=== PATIENT | male | born 1975 | race Caucasian/White ===

== ENCOUNTER 2017-09-27 11:02 | Inpatient (IN) ==
[2017-09-27 11:25] LABS: Baso # (Auto) 0.1 th/mm3 (0.0-0.2); Baso % (Auto) 0.7 % (0.0-2.0); Eos # (Auto) 0.1 th/mm3 (0.0-0.4); Hematocrit 40.3 % (39.0-51.0); Hemoglobin 13.5 gm/dL (13.0-17.0); Lymph # (Auto) 3.2 th/mm3 (1.0-4.8); Lymph % (Auto) 25.6 % (9.0-44.0); Mean Corpuscular HGB Conc 33.5 % (32.0-36.0); Mean Corpuscular Hemoglobin 30.1 pg (27.0-34.0); Mean Corpuscular Volume 90.1 fL (80.0-100.0); Mean Platelet Volume 9.6 fL (7.0-11.0); Mono # (Auto) 0.6 th/mm3 (0.0-0.9); Mono % (Auto) 4.6 % (0.0-8.0); Neut # (Auto) 8.5 th/mm3 (1.8-7.7); Neut % (Auto) 68.1 % (16.0-70.0); Platelet Count 178 th/mm3 (150-450); Red Blood Count 4.48 mil/mm3 (4.50-5.90); White Blood Count 12.5 th/mm3 (4.0-11.0)
[2017-09-27 11:41] LABS: Activated Partial Thrombo Time 19.8 sec (24.3-30.1); INR 1.1 Ratio; Prothrombin Time 10.7 sec (9.8-11.6)
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
[2017-09-27] MEDS ORDERED: Midazolam Inj 5 MG/ML 1 ML Vial ONE (12:07)
[2017-09-27] MEDS ORDERED: Norepinephrine Inj 4 MG/4 ML Ampul ONE (12:17)
[2017-09-27] MEDS: Midazolam 50 MG/50 ML Inj 50 MG/50 ML BAG IV.CONT PRN ×2 (12:50→17:49)
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
[2017-09-27] MEDS ORDERED: Midazolam 50 MG/50 ML Inj 50 MG/50 ML BAG IV.CONT PRN (13:11)
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
[2017-09-27 13:32] LABS: Hematocrit 26.7 % (39.0-51.0); Hemoglobin 8.9 gm/dL (13.0-17.0)
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
--- NOTE | 2017-09-27 13:45 | P.OP ---
Date of procedure: 09/27/17 Procedure: Right frontal intracranial twist drill hole pressure monitor placement Anesthesia: local Surgeon: Ruben Rahman MD Operation and Findings: Informed consent was obtained from the patient's family. Following administration of the intravenous Versed with the oxygen saturation and hemodynamic monitoring in the intensive care unit, the right frontal region was shaved and the prep with chlor prep and sterilely draped. Using landmarks of 11 cm behind the nasion and 3 cm to the right of the midline, a 1 cm scalp incision was made after infiltrating with 1% lidocaine with epinephrine solution. With a handheld drill a twist drill hole was made in the underlying dura penetrated with a blunt probe. The Higbee bolt was then secured to the skull. The fiberoptic catheter zeroed and passed into the subarachnoid space with an opening pressure of 7 mmHg noted. A sterile dressing was applied. There were no complications and blood loss was less than 5 cc.
[2017-09-27 14:11] LABS: ABG Base Excess -4.2 mmol/L (-2-2); ABG PCO2 36 mmHg (38-42); ABG PO2 208 mmHg (61-120)
[2017-09-27] MEDS: Sod Chloride 0.9% Inj 1,000 ML IV.CONT SCH ×2 (14:41→21:59)
[2017-09-27] MEDS: Norepinephrine Inj 4 MG in Sodium Chlor 0.9% Inj 246 ML IV.SIG PRN (14:41)
[2017-09-27] MEDS: Pantoprazole Inj 40 MG Vial IV.PUSH SCH (14:53)
[2017-09-27] MEDS: Oral Hygiene Kit OROPHARYNG SCH (15:21)
[2017-09-27] MEDS: fentaNYL 10 mcg/mL Premix Drip 2,500 MCG/250 ML BAG IV.SIG PRN (16:04)
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
[2017-09-27 17:36] LABS: Hematocrit 34.3 % (39.0-51.0); Hemoglobin 11.9 gm/dL (13.0-17.0)
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
[2017-09-27] MEDS ORDERED: Albumin Human 5% Inj 500 ML IV.SIG ONE (19:00)
[2017-09-27] MEDS: Chlorhexidine 0.12% Oral Kit 15 ML UDC OROPHARYNG SCH (20:43)
[2017-09-27 21:07] LABS: Hematocrit 28.8 % (39.0-51.0)
[2017-09-27 21:38] LABS: ABG PCO2 31 mmHg (38-42); ABG PO2 170 mmHg (61-120)
[2017-09-27 22:13] LABS: Anion Gap 8 meq/L (5-15); Blood Urea Nitrogen 13 mg/dL (7-18); Calcium 6.5 mg/dL (8.5-10.1); Carbon Dioxide 21.9 meq/L (21.0-32.0); Chloride 118 meq/L (98-107); Glomerular Filtration Rate Greater Than 89 mL/min (>89); Glucose,Random 129 mg/dL (74-106); Potassium 4.2 meq/L (3.5-5.1); Sodium 148 meq/L (136-145)
[2017-09-27 22:34] LABS: Total Protein 4.7 g/dL (6.4-8.2)
[2017-09-27] MEDS: Docusate Sodium 100 MG Capsule PO SCH (23:38)
[2017-09-27] MEDS: Senna/Docusate Sodium 8.6/50 MG Tablet PO SCH (23:38)
[2017-09-28] MEDS: Oral Hygiene Kit OROPHARYNG SCH ×4 (02:21→15:19)
[2017-09-28] MEDS: Norepinephrine Inj 4 MG in Sodium Chlor 0.9% Inj 246 ML IV.SIG PRN (02:22)
[2017-09-28] MEDS: Midazolam 50 MG/50 ML Inj 50 MG/50 ML BAG IV.CONT PRN (02:23)
[2017-09-28] MEDS ORDERED: Potassium Phosphate 500 MG Soluble Tablet PO PRN ×2 (03:52)
[2017-09-28] MEDS ORDERED: Potassium Chlor 20 mEq Premix 20 MEQ/100 ML PIGGYBACK IV.SIG PRN ×2 (03:52)
[2017-09-28] MEDS ORDERED: Magnesium Sulfate Inj 4 GM in Sodium Chlor 0.9% Inj 92 ML IV.SIG PRN (03:52)
[2017-09-28] MEDS ORDERED: Potassium Chlor 40 mEq Premix 40 MEQ/100 ML PIGGYBACK IV.SIG PRN (03:52)
[2017-09-28] MEDS ORDERED: Sodium Phosphate Inj 30 MMOL in Sodium Chlor 0.9% Inj 250 ML IV.SIG PRN (03:52)
[2017-09-28] MEDS ORDERED: Magnesium Sulfate Inj 2 GM in Sodium Chlor 0.9% Inj 96 ML IV.SIG PRN (03:52)
[2017-09-28] MEDS ORDERED: Magnesium Oxide 400 MG Tablet PO PRN (03:52)
[2017-09-28] MEDS ORDERED: Potassium Phosphate Inj 30 MMOL in Sodium Chlor 0.9% Inj 250 ML IV.SIG PRN (03:52)
[2017-09-28] MEDS ORDERED: Chlorhexidine Gluconate 2% 1 Pack (2 Cloths) TOPICAL PRN (04:00)
[2017-09-28 05:57] LABS: Hematocrit 26.3 % (39.0-51.0); Hemoglobin 9.3 gm/dL (13.0-17.0); Mean Corpuscular HGB Conc 35.2 % (32.0-36.0); Mean Corpuscular Hemoglobin 31.1 pg (27.0-34.0); Mean Corpuscular Volume 88.4 fL (80.0-100.0); Platelet Count 80 th/mm3 (150-450); Red Blood Count 2.97 mil/mm3 (4.50-5.90); Red Cell Distribution Width 13.7 % (11.6-17.2); White Blood Count 8.9 th/mm3 (4.0-11.0)
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
[2017-09-28 06:25] LABS: Anion Gap 5 meq/L (5-15); Blood Urea Nitrogen 10 mg/dL (7-18); Calcium 6.5 mg/dL (8.5-10.1); Carbon Dioxide 24.4 meq/L (21.0-32.0); Chloride 118 meq/L (98-107); Glomerular Filtration Rate Greater Than 89 mL/min (>89); Glucose,Random 127 mg/dL (74-106); Sodium 147 meq/L (136-145)
[2017-09-28 06:29] LABS: ABG Base Excess -2.5 mmol/L (-2-2); ABG PCO2 34 mmHg (38-42); ABG PO2 167 mmHg (61-120)
[2017-09-28 06:39] LABS: Total Protein 4.7 g/dL (6.4-8.2)
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
[2017-09-28] MEDS ORDERED: ceFAZolin 2 GM Premix Inj 0 GM/0 ML PIGGYBACK IV.SIG ONE (10:15)
[2017-09-28] MEDS ORDERED: Bupivacaine/Epinephrine Inj 0.25% 50 ML Vial ONE (10:18)
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
--- NOTE | 2017-09-28 10:46 | CT ---
EXAM DATE: 09/28/2017 10:32 AM EDT AGE/SEX: 41 years / Male INDICATIONS: Head injury one day ago. CLINICAL DATA: This is the patient's subsequent encounter. Patient reports that signs and symptoms h ave been present for 2 days and indicates a pain score of Nonresponsive. MEDICAL/SURGICAL HISTORY: Non-responsive. Non-responsive. RADIATION DOSE: 66.34 CTDI (mGy) COMPARISON: [facility], CT HEAD W/O CONTRAST, 09/27/2017. . TECHNIQUE: CT of the head without contrast. Using automated exposure control and adjustment of the mA and/or kV according to patient size, radiation dose was kept as low as reasonably achievable to ob tain optimal diagnostic quality images. DICOM format image data is available electronically for revi ew and comparison. FINDINGS: There are at least 5 small punctate areas of high density hemorrhage along the high frontal and parie lisbet lobes. These measure up to 7 mm in greatest diameter. There is also small amount of subtle appare nt subarachnoid hemorrhage over the more posterior parietal convexities best seen on axial image #26. In addition there are 3 small punctate areas of hemorrhage to along the medial sylvian fissure regio n the larger measures up to approximately 9 mm. There are 2 smaller subtle areas of apparent hemorrha ge along the anterior brainstem on image #14 and one along the medial temporal lobe on image #12. The se measure 2 to 3 mm in size. There is no mass effect or midline shift. The ventricular system is within normal limits. The posteri or fossa and brainstem are otherwise unremarkable. The bone windows demonstrate no evidence of fracture. There are air-fluid levels in the maxillary sin uses. A nasogastric tube and endotracheal tube are present. There is opacification of multiple ethmoi so air cells as well. CONCLUSION: 1. Multiple small punctate areas of intraparenchymal hemorrhage. 2. Subtle areas of apparent subarachnoid hemorrhage over the posterior parietal convexities. Electronically signed by: Dick Turner MD 09/28/2017 10:44 AM EDT
[2017-09-28] MEDS: Propofol 1000 mg/100 ml Inj 1,000 MG/100 ML BOTTLE IV.CONT PRN ×2 (11:01→17:02)
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
[2017-09-28] MEDS: Sod Chloride 0.9% Inj 1,000 ML IV.CONT SCH ×2 (11:43→17:25)
[2017-09-28] MEDS: Chlorhexidine 0.12% Oral Kit 15 ML UDC OROPHARYNG SCH ×2 (11:43→19:54)
[2017-09-28] MEDS: Pantoprazole Inj 40 MG Vial IV.PUSH SCH (11:44)
[2017-09-28] MEDS: Docusate Sodium 100 MG Capsule PO SCH ×2 (11:44→20:04)
[2017-09-28] MEDS: Senna/Docusate Sodium 8.6/50 MG Tablet PO SCH ×2 (11:44→20:04)
[2017-09-28] MEDS: fentaNYL 10 mcg/mL Premix Drip 2,500 MCG/250 ML BAG IV.SIG PRN (15:20)
[2017-09-28] MEDS: Chlorhexidine Gluconate 2% 1 Pack (2 Cloths) TOPICAL SCH (19:50)
--- NOTE | 2017-09-29 00:18 | ECG ---
Date Performed: 09/27/2017 Time Performed: 20:40:50 PTAGE: 41 years EKG: Sinus rhythm . Inferior T wave changes are nonspecific Borderline ECG NO PREVIOUS TRACING DOCTOR: Sushil Hilario Interpretating Date/Time 09/29/2017 00:17:02
[2017-09-29] MEDS: Propofol 1000 mg/100 ml Inj 1,000 MG/100 ML BOTTLE IV.CONT PRN ×2 (01:08→13:42)
[2017-09-29] MEDS: Oral Hygiene Kit OROPHARYNG SCH ×3 (03:33→19:57)
[2017-09-29] MEDS: Sod Chloride 0.9% Inj 1,000 ML IV.CONT SCH ×2 (03:34→19:57)
[2017-09-29 04:09] LABS: Baso # (Auto) 0.1 th/mm3 (0.0-0.2); Baso % (Auto) 0.6 % (0.0-2.0); Eos # (Auto) 0.2 th/mm3 (0.0-0.4); Eos % (Auto) 1.8 % (0.0-4.0); Hematocrit 21.8 % (39.0-51.0); Hemoglobin 7.6 gm/dL (13.0-17.0); Lymph # (Auto) 1.1 th/mm3 (1.0-4.8); Mean Corpuscular HGB Conc 34.7 % (32.0-36.0); Mean Corpuscular Hemoglobin 30.7 pg (27.0-34.0); Mean Corpuscular Volume 88.3 fL (80.0-100.0); Mean Platelet Volume 8.9 fL (7.0-11.0); Mono # (Auto) 0.8 th/mm3 (0.0-0.9); Mono % (Auto) 9.8 % (0.0-8.0); Neut # (Auto) 6.4 th/mm3 (1.8-7.7); Neut % (Auto) 74.8 % (16.0-70.0); Platelet Count 110 th/mm3 (150-450); Red Blood Count 2.47 mil/mm3 (4.50-5.90); Red Cell Distribution Width 13.7 % (11.6-17.2); White Blood Count 8.5 th/mm3 (4.0-11.0)
[2017-09-29 04:29] LABS: Anion Gap 5 meq/L (5-15); Blood Urea Nitrogen 9 mg/dL (7-18); Calcium 6.7 mg/dL (8.5-10.1); Carbon Dioxide 26.5 meq/L (21.0-32.0); Chloride 115 meq/L (98-107); Glomerular Filtration Rate Greater Than 89 mL/min (>89); Glucose,Random 107 mg/dL (74-106); Potassium 3.6 meq/L (3.5-5.1); Sodium 146 meq/L (136-145)
[2017-09-29 04:44] LABS: Total Protein 4.8 g/dL (6.4-8.2)
[2017-09-29 05:40] LABS: ABG Base Excess 0.4 mmol/L (-2-2); ABG PCO2 39 mmHg (38-42); ABG PO2 139 mmHg (61-120)
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
[2017-09-29] MEDS ORDERED: Sodium Chlor 0.9% Inj 250 ML IV.SIG SCH ×2 (07:30→10:00)
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
[2017-09-29] MEDS: Docusate Sodium 100 MG Capsule PO SCH ×2 (09:06→20:15)
[2017-09-29] MEDS: Chlorhexidine 0.12% Oral Kit 15 ML UDC OROPHARYNG SCH ×2 (09:06→19:57)
[2017-09-29] MEDS: Pantoprazole Inj 40 MG Vial IV.PUSH SCH (09:07)
[2017-09-29] MEDS: Senna/Docusate Sodium 8.6/50 MG Tablet PO SCH ×2 (09:07→20:14)
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
[2017-09-29] MEDS: Mupirocin 2% Nasal Oint Topical Syringe EACH NARE SCH ×2 (11:46→20:14)
[2017-09-29] MEDS ORDERED: Phenylephrine/NS 1000 MCG/10ML Syringe IV.PUSH ONE (12:00)
[2017-09-29] MEDS: fentaNYL 10 mcg/mL Premix Drip 2,500 MCG/250 ML BAG IV.SIG PRN (13:41)
[2017-09-29] MEDS ORDERED: ceFAZolin 2 GM Premix Inj 2 GM/50 ML PIGGYBACK IV.SIG ONE (18:28)
[2017-09-29] MEDS ORDERED: Post-op Orders (for Pharmacy) OTHER STA (18:44)
--- NOTE | 2017-09-29 18:51 | P.OP ---
- Preoperative Diagnosis (1) Closed intertrochanteric fracture of left femur (2) Fracture of femoral shaft, left, closed Date of procedure: 09/29/17 Procedure: Open reduction internal fixation of left femoral shaft fracture, intramedullary nail fixation of left intertrochanteric hip fracture Anesthesia: GETA Surgeon: Thomas Duque MD Keno Manager: Jose Cameron PA-C The surgical procedure was assisted by my physician transportation assistant. My P.A. presence was necessary throughout this case for the manipulation and positioning of the surgical extremity. My P.A. was assisting me throughout the duration of this procedure. The skill set of a physician transportation assistant was medically necessary to complete this procedure. During the surgical case the cardiovascular surgical tech was working at the back table and the physician transportation assistant was directly assisting me. Operation and Findings: Implants used: Biomet [11]mm x [420]mm troch nail, Synthes 1.7 mm cable Plan of activity: 50% weightbearing Patient was seen and evaluated preoperatively. He has been intubated and sedated in the intensive care unit secondary to multiple other injuries. He was found to have a displaced femoral shaft fracture and intertrochanteric hip fracture. Informed consent was obtained from his family. Operative site was marked. Patient was brought to the operating room and placed on fracture table. IV sedation was administered by anesthesiologist. Timeout procedure was performed. Hip and leg were prepped with alcohol followed by DuraPrep and draped in the usual sterile fashion. IV antibiotics were given prior to incision. The head of bed was elevated at all times to help keep his intracranial pressures low. Procedure began with reduction of femoral shaft fracture. Traction was applied. There was significant displacement of the femoral shaft fracture. A 4 inch incision was made over the lateral aspect of the femoral shaft fracture. Subcu tissue was dissected with Bovie. Iliotibial band was split in line with fibers. Vastus lateralis was elevated anteriorly. The femoral shaft fracture was now manipulated. Fracture tenaculums were used to aid in reduction. Fracture keyed in excellent alignment. A Synthes 1.7 mm cable was now passed around the femoral shaft fracture. Cable was tensioned appropriately. The cable was then clamped and cut. Next attention was turned to the intertrochanteric fracture. The leg was manipulated to achieve reduction. Excellent reduction was achieved. Fluoroscopy was used to confirm reduction. A three inch incision was made proximal to the trochanter. Subcutaneous tissue was dissected bluntly. Guidepin was placed at the tip of the trochanter and advanced into the femoral canal. Fluoroscopy confirmed appropriate guidepin placement. A opening reamer was placed over the guidepin. A long ball tipped guide pin was now placed down the femoral canal into the center of the distal femur. The nail length was now measured. Fluoroscopy confirmed appropriate guidepin placement. Flexible reamers were now passed over the guidepin to ream the intramedullary canal. The nail was attached to the insertion handle. Nail was now placed over the guidepin into the femoral canal. Fluoroscopy confirmed appropriate nail placement. A second incision was made over the lateral thigh. Cannulas were placed through the insertion handle down to the femur. Guidepin was now placed through the femoral nail into the center of the femoral head. Fluoroscopy confirmed appropriate guidepin placement. Screw length was measured. Cannulated drill was placed over the guidepin. Appropriate length lag screw was now placed. Traction was released and compression was applied. The set screw was now tightened in dynamic mode. Next, using perfect tunica-biloxi technique two distal interlocking screws were placed. Screw holes were predrilled and screw lengths were measured. Final fluoroscopy revealed well aligned fracture with well-placed hardware. Incision was closed with 3-0 Vicryl and pepe. Sterile dressings were applied. Patient was transferred to intensive care.
[2017-09-29] MEDS ORDERED: fentaNYL Citrate Inj 100 MCG/2 ML Ampul ONE (19:27)
[2017-09-29] MEDS: Chlorhexidine Gluconate 2% 1 Pack (2 Cloths) TOPICAL SCH (19:56)
[2017-09-29] MEDS: Morphine Inj 4 MG/ML Vial IV.PUSH PRN ×2 (20:14→23:55)
--- NOTE | 2017-09-29 20:15 | XR ---
EXAM DATE: 09/29/2017 8:01 PM EDT AGE/SEX: 41 years / Male INDICATIONS: Left femur open reduction internal fixation. CLINICAL DATA: This is the patient's initial encounter. Patient reports that signs and symptoms have been present for 1 day and indicates a pain score of Nonresponsive. MEDICAL/SURGICAL HISTORY: Non-responsive. Non-responsive. [place]PAR[place]: [facility] [place] 1[place], 09/27/[place]. [facility] [place]BD[place] & PELVIS W CONTRAST, 09/27/2017. . FINDINGS: There is a long agustín seen through the femoral shaft. There is a helical blade extending through the pr oximal aspect of the intramedullary agustín into the femoral neck and head. The hardware is well placed. There is fracturing of the proximal femoral shaft. CONCLUSION: Successful ORIF of a femoral shaft fracture. Electronically signed by: Giuliano Patel MD 09/29/2017 8:14 PM EDT
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
[2017-09-30] MEDS: Oral Hygiene Kit OROPHARYNG SCH ×5 (00:35→23:15)
[2017-09-30] MEDS: Propofol 1000 mg/100 ml Inj 1,000 MG/100 ML BOTTLE IV.CONT PRN ×6 (01:33→20:51)
[2017-09-30] MEDS: ceFAZolin Inj 2,000 MG in Sodium Chlor 0.9% Inj 80 ML IV.SIG SCH ×3 (02:02→19:11)
[2017-09-30] MEDS: fentaNYL 10 mcg/mL Premix Drip 2,500 MCG/250 ML BAG IV.SIG PRN ×2 (03:07→12:47)
[2017-09-30] MEDS: Chlorhexidine Gluconate 2% 1 Pack (2 Cloths) TOPICAL SCH (03:08)
[2017-09-30 05:49] LABS: ABG Base Excess 1.5 mmol/L (-2-2); ABG PCO2 40 mmHg (38-42); ABG PO2 135 mmHg (61-120)
[2017-09-30] MEDS: Sod Chloride 0.9% Inj 1,000 ML IV.CONT SCH (06:16)
[2017-09-30 06:28] LABS: Baso % (Auto) 0.6 % (0.0-2.0); Eos # (Auto) 0.2 th/mm3 (0.0-0.4); Lymph # (Auto) 0.8 th/mm3 (1.0-4.8); Lymph % (Auto) 16.9 % (9.0-44.0); Mean Corpuscular HGB Conc 35.3 % (32.0-36.0); Mean Corpuscular Hemoglobin 30.8 pg (27.0-34.0); Mean Corpuscular Volume 87.4 fL (80.0-100.0); Mean Platelet Volume 8.5 fL (7.0-11.0); Mono # (Auto) 0.5 th/mm3 (0.0-0.9); Mono % (Auto) 10.2 % (0.0-8.0); Neut # (Auto) 3.2 th/mm3 (1.8-7.7); Neut % (Auto) 68.3 % (16.0-70.0); Platelet Count 106 th/mm3 (150-450); Red Blood Count 2.07 mil/mm3 (4.50-5.90); Red Cell Distribution Width 13.6 % (11.6-17.2); White Blood Count 4.7 th/mm3 (4.0-11.0)
[2017-09-30 06:34] LABS: Hematocrit 18.1 % (39.0-51.0); Hemoglobin 6.4 gm/dL (13.0-17.0)
[2017-09-30 07:05] LABS: Anion Gap 7 meq/L (5-15); Blood Urea Nitrogen 7 mg/dL (7-18); Calcium 6.7 mg/dL (8.5-10.1); Carbon Dioxide 25.6 meq/L (21.0-32.0); Chloride 114 meq/L (98-107); Glomerular Filtration Rate Greater Than 89 mL/min (>89); Glucose,Random 107 mg/dL (74-106); Potassium 3.3 meq/L (3.5-5.1); Sodium 147 meq/L (136-145)
--- NOTE | 2017-09-30 07:16 | P.PNOP ---
Subjective Interval history: Patient is stable and sedated Physical Exam Vital signs: Vital Signs 09/29/17 08:00 09/29/17 08:28 09/29/17 08:41 Temperature 100.5 F H 100.5 F H Pulse Rate 88 84 Respiratory Rate 14 14 14 Blood Pressure 154/61 H 156/49 H Pulse Oximetry 100 100 100 09/29/17 09:00 09/29/17 11:22 09/29/17 12:00 Temperature 100.8 F H Pulse Rate 85 79 Respiratory Rate 14 14 Blood Pressure 145/51 H Pulse Oximetry 100 100 09/29/17 16:00 09/29/17 16:02 09/29/17 17:26 Temperature 99.3 F Pulse Rate 85 Respiratory Rate 14 14 Blood Pressure 132/61 Pulse Oximetry 100 100 100 09/29/17 20:00 09/29/17 20:30 09/29/17 23:33 Temperature 97.7 F Pulse Rate 72 Respiratory Rate 14 14 14 Blood Pressure 176/74 H Pulse Oximetry 100 100 95 09/30/17 00:00 09/30/17 03:45 09/30/17 04:00 Temperature 99 F 100.8 F H Pulse Rate 97 H 88 Respiratory Rate 14 14 14 Blood Pressure 161/55 H 148/50 H Pulse Oximetry 100 100 100 Intake & Output 09/29/17 09/30/17 09/30/17 18:59 06:59 18:59 Intake Total 2210 / 2210 1445 / 1445 Output Total 800 / 800 Balance 1410 / 1410 1445 / 1445 Intake: IV 1610 / 1610 1445 / 1445 Diprivan 1000 mg/100 ml Inj 1, 100 / 100 195 / 195 000 mg In 100 ml @ 5 MCG/KG/MIN 2.49 mls/hr IV.CONT TITRATE PRN Rx#:[id number] NS Inj 1,000 ML @ 100 mls/hr IV 1000 / 1000 1000 / 1000 .CONT .Q10H [facility] Rx#:[id number] NS Inj 250 ML @ 15 mls/hr IV. 0 / 0 SIG ONCE [facility] Rx#:[id number] Ancef 2 GM Premix Inj 2 gm In 50 / 50 50 ml @ 100 mls/hr IV.SIG ONCE ONE Rx#:[id number] fentaNYL 10 mcg/mL Premix Drip 250 / 250 250 / 250 2,500 mcg In 250 ml @ 50 MCG/HR 5 mls/hr IV.SIG TITRATE PRN Rx #:[id number] Keppra Inj 500 MG In NS Inj 100 210 / 210 ML @ 420 mls/hr IV.SIG Q12H [facility] Rx#:[id number] Anesthesia Amount 600 / 600 Intake (Blood Product) Amt 0 / 0 Plt Pheresis B Leukoreduced 0 / 0 Unit [id number] Rbc As-3 Leukoreduced Unit 0 / 0 [id number] Output: Estimated Blood Loss 150 / 150 Urine Amount (Catheter) 650 / 650 Indwelling Temp Sensing 650 / 650 Catheter Narrative: Left lower extremity. Dressings intact with mild drainage. Moderate swelling over thigh. Distally intact distal pulses and good capillary refills Bilateral upper extremities are in restraints. No laxity in elbow wrist or fingers. Good capillary refills in bilateral upper extremities - Urinary Catheter Management Indwelling Urethral Catheter Cath placed during this visit: yes Reason for continuing: Hourly intake/output Insertion date: 09/27/17 Insertion time: 12:10 Indwelling Temp Sensing Catheter Cath placed during this visit: yes Reason for continuing: Hourly intake/output Insertion date: 09/27/17 Insertion time: 12:10 Results - Labs CBC & Chem 7: 09/30/17 06:05 09/30/17 06:05 Laboratory Results - last 24 hr 09/27/17 09/30/17 09/30/17 11:05 05:41 06:05 WBC 4.7 RBC 2.07 L Hgb 6.4 L* Hct 18.1 L* MCV 87.4 MCH 30.8 MCHC 35.3 RDW 13.6 Plt Count 106 L MPV 8.5 Prelim Diff (Auto) Slide review pending Neut % (Auto) 68.3 Lymph % (Auto) 16.9 Floyd % (Auto) 10.2 H Eos % (Auto) 4.0 Baso % (Auto) 0.6 Neut # (Auto) 3.2 Lymph # (Auto) 0.8 L Floyd # (Auto) 0.5 Eos # (Auto) 0.2 Baso # (Auto) 0.0 WBC Differential . Diff Scan Auto diff confirmed Differential Comment . Puncture Site Joanna Patient Temperature 98.6 O2 Saturation 97 ABG pH 7.42 ABG pCO2 40 ABG pO2 135 H ABG HCO3 26 ABG O2 Content 8.9 L ABG Base Excess 1.5 ABG Methemoglobin 1.2 Hemoglobin 6.3 L* Carboxyhemoglobin 1.4 O2 Delivery Device Ventilator Vent Setting See comment Inspired O2 40 Critical Value Yes Sodium Potassium Chloride Carbon Dioxide Anion Gap BUN Creatinine Estimated GFR Random Glucose Calcium MTS Gel Crossmatch See Detail 09/30/17 06:05 WBC RBC Hgb Hct MCV MCH MCHC RDW Plt Count MPV Prelim Diff (Auto) Neut % (Auto) Lymph % (Auto) Floyd % (Auto) Eos % (Auto) Baso % (Auto) Neut # (Auto) Lymph # (Auto) Floyd # (Auto) Eos # (Auto) Baso # (Auto) WBC Differential Diff Scan Differential Comment Puncture Site Patient Temperature O2 Saturation ABG pH ABG pCO2 ABG pO2 ABG HCO3 ABG O2 Content ABG Base Excess ABG Methemoglobin Hemoglobin Carboxyhemoglobin O2 Delivery Device Vent Setting Inspired O2 Critical Value Sodium 147 H Potassium 3.3 L Chloride 114 H Carbon Dioxide 25.6 Anion Gap 7 BUN 7 Creatinine 0.52 L Estimated GFR Greater than 89 Random Glucose 107 H Calcium 6.7 L* MTS Gel Crossmatch - Imaging Impressions Femur X-Ray 09/29/17 00:00 CONCLUSION: Successful ORIF of a femoral shaft fracture. Assessment and Plan - Assessment and Plan Left femur fracture IM nail POD 1 Physical therapy for 50% weightbearing left lower extremity Daily dressing changes beginning POD 2 Ice to decrease swelling Bilateral scapular fractures Weightbearing as tolerated
[2017-09-30 07:21] LABS: Total Protein 4.3 g/dL (6.4-8.2)
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
[2017-09-30] MEDS: Docusate Sodium 100 MG Capsule PO SCH ×2 (11:42→20:21)
[2017-09-30] MEDS: Chlorhexidine 0.12% Oral Kit 15 ML UDC OROPHARYNG SCH ×2 (11:42→20:21)
[2017-09-30] MEDS: Mupirocin 2% Nasal Oint Topical Syringe EACH NARE SCH ×2 (11:42→20:21)
[2017-09-30] MEDS: Senna/Docusate Sodium 8.6/50 MG Tablet PO SCH ×2 (11:43→20:21)
[2017-09-30] MEDS: Pantoprazole Inj 40 MG Vial IV.PUSH SCH (11:43)
[2017-09-30] MEDS: Calcium/Vitamin D 250/125 MG Tablet PO SCH ×3 (12:46→19:11)
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
[2017-09-30 19:49] LABS: Hemoglobin 8.3 gm/dL (13.0-17.0)
[2017-09-30] MEDS: Morphine Inj 4 MG/ML Vial IV.PUSH PRN (23:14)
[2017-10-01] MEDS: Propofol 1000 mg/100 ml Inj 1,000 MG/100 ML BOTTLE IV.CONT PRN ×2 (00:37→06:06)
[2017-10-01] MEDS: Chlorhexidine Gluconate 2% 1 Pack (2 Cloths) TOPICAL SCH (04:30)
[2017-10-01] MEDS: Oral Hygiene Kit OROPHARYNG SCH ×3 (04:31→15:50)
--- NOTE | 2017-10-01 05:10 | XR ---
EXAM DATE: 10/01/2017 4:33 AM EDT AGE/SEX: 41 years / Male INDICATIONS: Shortness of breath CLINICAL DATA: This is the patient's subsequent encounter. Patient reports that signs and symptoms h ave been present for 4 - 6 days and indicates a pain score of Nonresponsive. MEDICAL/SURGICAL HISTORY: Non-responsive. Non-responsive. COMPARISON: C, CHEST 1V SINGLE AP, 09/28/2017. . FINDINGS: A single AP view of the chest demonstrates developing bibasilar airspace consolidation with associate d effusions. Endotracheal, nasogastric tube and left subclavian central venous catheters are unchange d in position. Heart size is normal. Posterior lateral rib fracture in the right lower chest. Left-si ded thoracostomy tube is been backed out slightly but there is no pneumothorax. CONCLUSION: 1. Developing bibasilar areas of consolidation with associated effusions. 2. Left thoracostomy tube is been backed out slightly but there is no pneumothorax. Life-support tub es are otherwise stable. 3. Right posterior lateral rib fracture in the lower chest. Electronically signed by: Luis Antonio Neff MD 10/01/2017 5:08 AM EDT
[2017-10-01 05:43] LABS: ABG Base Excess 3.3 mmol/L (-2-2); ABG PCO2 43 mmHg (38-42); ABG PO2 87 mmHg (61-120)
[2017-10-01] MEDS: fentaNYL 10 mcg/mL Premix Drip 2,500 MCG/250 ML BAG IV.SIG PRN ×2 (05:49→21:38)
[2017-10-01 06:10] LABS: Baso % (Auto) 0.5 % (0.0-2.0); Eos # (Auto) 0.3 th/mm3 (0.0-0.4); Hematocrit 23.1 % (39.0-51.0); Lymph # (Auto) 0.8 th/mm3 (1.0-4.8); Lymph % (Auto) 10.1 % (9.0-44.0); Mean Corpuscular HGB Conc 34.8 % (32.0-36.0); Mean Corpuscular Hemoglobin 28.3 pg (27.0-34.0); Mean Corpuscular Volume 81.3 fL (80.0-100.0); Mean Platelet Volume 7.9 fL (7.0-11.0); Mono # (Auto) 0.8 th/mm3 (0.0-0.9); Mono % (Auto) 9.6 % (0.0-8.0); Neut # (Auto) 6.3 th/mm3 (1.8-7.7); Neut % (Auto) 75.8 % (16.0-70.0); Platelet Count 142 th/mm3 (150-450); Red Blood Count 2.84 mil/mm3 (4.50-5.90); Red Cell Distribution Width 19.4 % (11.6-17.2); White Blood Count 8.3 th/mm3 (4.0-11.0)
[2017-10-01 07:02] LABS: Anion Gap 6 meq/L (5-15); Blood Urea Nitrogen 6 mg/dL (7-18); Calcium 6.8 mg/dL (8.5-10.1); Carbon Dioxide 29.2 meq/L (21.0-32.0); Chloride 111 meq/L (98-107); Glomerular Filtration Rate Greater Than 89 mL/min (>89); Glucose,Random 123 mg/dL (74-106); Potassium 3.4 meq/L (3.5-5.1); Sodium 146 meq/L (136-145)
[2017-10-01 07:15] LABS: Total Protein 4.7 g/dL (6.4-8.2)
--- NOTE | 2017-10-01 07:38 | P.PNOP ---
Subjective Interval history: POD 2 s/p IMN left femur s/p Bilateral scap fxs intubated/sedated. no changes Physical Exam Vital signs: Vital Signs 09/30/17 08:00 09/30/17 09:00 09/30/17 09:25 Temperature 100.9 F H Pulse Rate 93 H 88 Respiratory Rate 14 14 Blood Pressure 130/49 L Pulse Oximetry 94 L 98 09/30/17 11:29 09/30/17 12:00 09/30/17 12:20 Temperature 100.8 F H 100.8 F H Pulse Rate 87 87 Respiratory Rate 14 14 14 Blood Pressure 121/40 L 140/87 Pulse Oximetry 100 100 100 09/30/17 15:47 09/30/17 15:48 09/30/17 16:00 Temperature 100.2 F H Pulse Rate 75 79 Respiratory Rate 14 14 14 Blood Pressure 138/48 L Pulse Oximetry 100 99 09/30/17 20:00 09/30/17 20:04 09/30/17 23:41 Temperature 100 F H Pulse Rate 78 Respiratory Rate 14 14 14 Blood Pressure 146/42 H Pulse Oximetry 99 99 97 10/01/17 00:00 10/01/17 03:48 10/01/17 04:00 Temperature 100.2 F H 100.8 F H Pulse Rate 79 86 Respiratory Rate 14 20 14 Blood Pressure 135/41 L 152/50 H Pulse Oximetry 99 99 98 Intake & Output 09/30/17 10/01/17 10/01/17 18:59 06:59 18:59 Intake Total 1335 / 1335 832 / 832 Output Total 590 / 590 745 / 745 Balance 745 / 745 87 / 87 Weight 92.9 kg Intake: IV 715 / 715 550 / 550 Diprivan 1000 mg/100 ml Inj 1, 260 / 260 300 / 300 000 mg In 100 ml @ 5 MCG/KG/MIN 2.49 mls/hr IV.CONT TITRATE PRN Rx#:[id number] Ancef Inj 2,000 MG In NS Inj 80 100 / 100 ML @ 200 mls/hr IV.SIG Q8H SRIDEVI Rx#:[id number] fentaNYL 10 mcg/mL Premix Drip 250 / 250 250 / 250 2,500 mcg In 250 ml @ 50 MCG/HR 5 mls/hr IV.SIG TITRATE PRN Rx #:[id number] Keppra Inj 500 MG In NS Inj 100 105 / 105 ML @ 420 mls/hr IV.SIG Q12H SRIDVEI Rx#:[id number] Tube Feeding 0 / 0 282 / 282 Tube Irrigant 120 / 120 Other 500 / 500 Rbc As-3 Leukoreduced Unit 250 / 250 [id number] Rbc As-3 Leukoreduced Unit 250 / 250 [id number] Intake (Blood Product) Amt 0 / 0 Rbc As-3 Leukoreduced Unit 0 / 0 [id number] Rbc As-3 Leukoreduced Unit 0 / 0 [id number] Output: Stool 0 / 0 Urine Amount (Catheter) 550 / 550 675 / 675 Indwelling Temp Sensing 550 / 550 675 / 675 Catheter Chest Tube Drainage 40 / 40 70 / 70 Left Mid-Axillary Chest 40 / 40 70 / 70 Narrative: Left lower extremity. Dressings intact with mild drainage. Moderate swelling over thigh. Distally intact distal pulses and good capillary refills Bilateral upper extremities are in restraints. No laxity in elbow wrist or fingers. Good capillary refills in bilateral upper extremities - Urinary Catheter Management Indwelling Urethral Catheter Cath placed during this visit: yes Reason for continuing: Hourly intake/output Insertion date: 09/27/17 Insertion time: 12:10 Indwelling Temp Sensing Catheter Cath placed during this visit: yes Reason for continuing: Hourly intake/output Insertion date: 09/27/17 Insertion time: 12:10 Results - Labs CBC & Chem 7: 10/01/17 06:00 10/01/17 06:00 Laboratory Results - last 24 hr 09/27/17 09/29/17 09/30/17 11:05 05:47 08:38 WBC RBC Hgb Hct MCV MCH MCHC RDW Plt Count MPV Neut % (Auto) Lymph % (Auto) [place] % (Auto) Eos % (Auto) Baso % (Auto) Neut # (Auto) Lymph # (Auto) [place] # (Auto) Eos # (Auto) Baso # (Auto) WBC Differential Differential Comment Puncture Site Patient Temperature O2 Saturation ABG pH ABG pCO2 ABG pO2 ABG HCO3 ABG O2 Content ABG Base Excess ABG Methemoglobin Hemoglobin Carboxyhemoglobin O2 Delivery Device Vent Setting Inspired O2 Critical Value Sodium Potassium Chloride Carbon Dioxide Anion Gap BUN Creatinine Estimated GFR Random Glucose Calcium Prot Corrected Calcium Total Protein Blood Type A Positive Antibody Screen Negative MTS Gel Crossmatch See Detail See Detail See Detail Bld Prod Order Comment Cancelled 09/30/17 10/01/17 10/01/17 19:08 05:33 06:00 WBC 8.3 D RBC 2.84 L Hgb 8.3 L 8.0 L Hct 24.0 L 23.1 L MCV 81.3 D MCH 28.3 MCHC 34.8 RDW 19.4 H D Plt Count 142 L D MPV 7.9 Neut % (Auto) 75.8 H Lymph % (Auto) 10.1 [place] % (Auto) 9.6 H Eos % (Auto) 4.0 Baso % (Auto) 0.5 Neut # (Auto) 6.3 Lymph # (Auto) 0.8 L [place] # (Auto) 0.8 Eos # (Auto) 0.3 Baso # (Auto) 0.0 WBC Differential . Differential Comment Auto diff final Puncture Site [place] Patient Temperature 98.6 O2 Saturation 95 ABG pH 7.43 H ABG pCO2 43 H ABG pO2 87 ABG HCO3 27 H ABG O2 Content 10.8 L ABG Base Excess 3.3 H ABG Methemoglobin 1.2 Hemoglobin 8.0 L Carboxyhemoglobin 1.8 O2 Delivery Device Ventilator Vent Setting See comment Inspired O2 40 Critical Value No Sodium Potassium Chloride Carbon Dioxide Anion Gap BUN Creatinine Estimated GFR Random Glucose Calcium Prot Corrected Calcium Total Protein Blood Type Antibody Screen MTS Gel Crossmatch Bld Prod Order Comment 10/01/17 06:00 WBC RBC Hgb Hct MCV MCH MCHC RDW Plt Count MPV Neut % (Auto) Lymph % (Auto) [place] % (Auto) Eos % (Auto) Baso % (Auto) Neut # (Auto) Lymph # (Auto) [place] # (Auto) Eos # (Auto) Baso # (Auto) WBC Differential Differential Comment Puncture Site Patient Temperature O2 Saturation ABG pH ABG pCO2 ABG pO2 ABG HCO3 ABG O2 Content ABG Base Excess ABG Methemoglobin Hemoglobin Carboxyhemoglobin O2 Delivery Device Vent Setting Inspired O2 Critical Value Sodium 146 H Potassium 3.4 L Chloride 111 H Carbon Dioxide 29.2 Anion Gap 6 BUN 6 L Creatinine 0.51 L Estimated GFR Greater than 89 Random Glucose 123 H Calcium 6.8 L* Prot Corrected Calcium 8.1 L Total Protein 4.7 L Blood Type Antibody Screen MTS Gel Crossmatch Bld Prod Order Comment - Imaging Impressions Chest X-Ray 10/01/17 00:00 CONCLUSION: Assessment and Plan - Assessment and Plan Left femur fracture IM nail POD 2 Physical therapy for 50% weightbearing left lower extremity Daily dressing changes beginning POD 2 Ice to decrease swelling ortho surgeries complete Bilateral scapular fractures Weightbearing as tolerated
[2017-10-01] MEDS: Chlorhexidine 0.12% Oral Kit 15 ML UDC OROPHARYNG SCH ×2 (08:02→20:38)
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
[2017-10-01] MEDS: Mupirocin 2% Nasal Oint Topical Syringe EACH NARE SCH ×2 (08:26→20:37)
[2017-10-01] MEDS: Senna/Docusate Sodium 8.6/50 MG Tablet PO SCH ×2 (08:27→20:37)
[2017-10-01] MEDS: Calcium/Vitamin D 250/125 MG Tablet PO SCH ×3 (08:27→17:56)
[2017-10-01] MEDS: Pantoprazole Inj 40 MG Vial IV.PUSH SCH (08:27)
[2017-10-01] MEDS: Docusate Sodium 100 MG Capsule PO SCH (08:28)
[2017-10-01] MEDS: Potassium Chloride 25 MEQ Effervescent Tablet PO PRN (08:28)
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
[2017-10-01] MEDS: Enoxaparin Inj 40 MG/0.4 ML Syringe SQ SCH (11:11)
[2017-10-01] MEDS: Hypromellose 0.3% Opth Gel 10 GM Bottle EACH EYE SCH ×2 (13:51→18:17)
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
[2017-10-01] MEDS: Docusate Sodium Liq 100 MG/10 ML UDC NG/OG SCH (20:37)
[2017-10-02] MEDS: Oral Hygiene Kit OROPHARYNG SCH ×5 (00:27→23:27)
[2017-10-02] MEDS: Hypromellose 0.3% Opth Gel 10 GM Bottle EACH EYE SCH ×4 (00:27→19:08)
[2017-10-02] MEDS: Chlorhexidine Gluconate 2% 1 Pack (2 Cloths) TOPICAL SCH (03:50)
--- NOTE | 2017-10-02 04:13 | XR ---
EXAM DATE: 10/02/2017 4:08 AM EDT AGE/SEX: 41 years / Male INDICATIONS: Pneumothorax. CLINICAL DATA: This is the patient's subsequent encounter. Patient reports that signs and symptoms h ave been present for 4 - 6 days and indicates a pain score of Nonresponsive. MEDICAL/SURGICAL HISTORY: Non-responsive. Non-responsive. COMPARISON: 10/01/2017. FINDINGS: Stable ETT, NGT and left subclavian central line. Interval removal of left-sided chest tube without s ignificant pneumothorax. Persistent bilateral lower lobe airspace disease and small pleural effusions . Cardiomediastinal contours are within normal limits. Remainder of the exam is unchanged. CONCLUSION: 1. Interval removal of left-sided chest tube without significant pneumothorax. 2. Stable bilateral lower lung zone airspace disease and small pleural effusions. Electronically signed by: Chalino Tucker MD 10/02/2017 4:11 AM EDT
[2017-10-02] MEDS ORDERED: Metoprolol Inj 5 MG/5 ML Vial ONE (04:14)
[2017-10-02] MEDS: Metoprolol Inj 5 MG/5 ML Vial IV.PUSH SCH ×4 (04:20→22:19)
[2017-10-02 05:39] LABS: Baso % (Auto) 0.3 % (0.0-2.0); Eos # (Auto) 0.3 th/mm3 (0.0-0.4); Eos % (Auto) 2.9 % (0.0-4.0); Hemoglobin 7.6 gm/dL (13.0-17.0); Lymph # (Auto) 0.7 th/mm3 (1.0-4.8); Lymph % (Auto) 8.3 % (9.0-44.0); Mean Corpuscular HGB Conc 34.7 % (32.0-36.0); Mean Corpuscular Hemoglobin 28.9 pg (27.0-34.0); Mean Corpuscular Volume 83.1 fL (80.0-100.0); Mean Platelet Volume 7.9 fL (7.0-11.0); Mono # (Auto) 0.9 th/mm3 (0.0-0.9); Mono % (Auto) 9.9 % (0.0-8.0); Neut % (Auto) 78.6 % (16.0-70.0); Platelet Count 178 th/mm3 (150-450); Red Blood Count 2.65 mil/mm3 (4.50-5.90); Red Cell Distribution Width 19.1 % (11.6-17.2); White Blood Count 8.9 th/mm3 (4.0-11.0)
[2017-10-02 05:53] LABS: Anion Gap 8 meq/L (5-15); Blood Urea Nitrogen 9 mg/dL (7-18); Calcium 7.3 mg/dL (8.5-10.1); Carbon Dioxide 29.4 meq/L (21.0-32.0); Chloride 109 meq/L (98-107); Glomerular Filtration Rate Greater Than 89 mL/min (>89); Glucose,Random 135 mg/dL (74-106); Potassium 3.3 meq/L (3.5-5.1); Sodium 146 meq/L (136-145)
[2017-10-02 06:03] LABS: Total Protein 4.8 g/dL (6.4-8.2)
[2017-10-02 07:00] LABS: Eosinophils 2 % (0-4); Lymphocytes 13 % (9-44); Monocytes 4 % (0-8); Myelocytes 1 % (0-0); Tallied Nucleated RBC 1 (0-0)
[2017-10-02 07:01] LABS: Platelet Estimate Normal (Normal); Platelet Morphology Normal (Normal)
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
[2017-10-02] MEDS ORDERED: Lidocaine 1%/Epinephrine 1:100,000 Inj 20 ML Vial INFILTRATN ONE (08:44)
--- NOTE | 2017-10-02 09:11 | P.PNNS ---
Subjective Interval history: Pt sedated on Fentanyl drip. Diprivan reportedly on hold since yesterday. He is opening eyes spontaneously not fully or tracking or focusing. He is not following commands but has some spontaneous purposeful movements with the upper extremities. Remains intubated on vent on a rate. <Luis Wood - Last Filed: 10/02/17 09:02> Physical Exam Vital signs: Vital Signs 10/01/17 10:00 10/01/17 11:43 10/01/17 12:00 Temperature 99.9 F H Pulse Rate 94 H 92 H Respiratory Rate 20 17 Blood Pressure 139/57 L Pulse Oximetry 100 100 10/01/17 14:00 10/01/17 16:00 10/01/17 17:06 Temperature 101.7 F H Pulse Rate 90 87 Respiratory Rate 17 14 Blood Pressure 153/50 H Pulse Oximetry 100 100 10/01/17 18:00 10/01/17 20:00 10/01/17 21:38 Temperature 100.8 F H Pulse Rate 80 98 H Respiratory Rate 20 20 Blood Pressure 152/58 H Pulse Oximetry 100 100 10/01/17 22:00 10/02/17 00:00 10/02/17 01:04 Temperature 100.4 F H Pulse Rate 95 H 87 Respiratory Rate 15 14 Blood Pressure 119/56 L Pulse Oximetry 100 100 10/02/17 02:00 10/02/17 03:08 10/02/17 04:00 Temperature 100.4 F H Pulse Rate 94 H 78 Respiratory Rate 14 18 Blood Pressure 156/56 H Pulse Oximetry 100 100 10/02/17 05:45 10/02/17 06:00 Temperature 101.1 F H Pulse Rate 76 Respiratory Rate Blood Pressure Pulse Oximetry Intake & Output 10/01/17 10/02/17 10/02/17 18:59 06:59 18:59 Intake Total 880 / 880 1115 / 1115 Output Total 1000 / 1000 1300 / 1300 Balance -120 / -120 -185 / -185 Intake: IV 205 / 205 455 / 455 Ofirmev Inj 1,000 mg In 100 ml 100 / 100 100 / 100 @ 400 mls/hr IV.SIG Q6H PRN Rx# :[id number] fentaNYL 10 mcg/mL Premix Drip 250 / 250 2,500 mcg In 250 ml @ 50 MCG/HR 5 mls/hr IV.SIG TITRATE PRN Rx #:[id number] Keppra Inj 500 MG In NS Inj 100 105 / 105 105 / 105 ML @ 420 mls/hr IV.SIG Q12H [facility] Rx#:[id number] Tube Feeding 555 / 555 660 / 660 Tube Irrigant 120 / 120 Output: Stool 0 / 0 Urine Amount (Catheter) 1000 / 1000 1300 / 1300 Indwelling Temp Sensing 1000 / 1000 1300 / 1300 Catheter Other: # Bowel Movements 0 - Constitutional Comments: Pt intubated and sedated. - Routine HEENT Exam Head: Absent: atraumatic (Right frontal juan bolt in place.) Eye: Absent: PERRL (Right pupil 5mm NR left 3mm reactive.), conjunctival icterus ENT: Absent: oropharynx clear (ET intubated.) - Routine Neck Exam Present: trachea midline - Routine Respiratory Exam Present: patient mechanically ventilated, CTA bilaterally. Absent: respiratory distress, rhonchi, wheezes - Routine Cardiovascular Exam Present: RRR, S1, S2. Absent: murmur - Routine Abdominal Exam Present: soft, normoactive bowel sounds. Absent: tenderness, distended - Routine Skin Exam Present: wounds (Right upper extremity bandaged proximally dry.) - Routine Neurological Exam Present: altered mental status (sedated.). Absent: alert (Pt sedated on Fentanyl. Starting to open eyes spontaneously but not focusing or tracking.), moving all extremities (Starting to move UEs purposefully and spontaneously. Moves RLE more than LLE and both less than the UEs.) - Detailed Neurological Exam: Coma Scale Eye Opening: Spontaneous Verbal Response: None Motor Response: Normal flexion [place] Coma Scale Total: 9 - Routine Psychiatric Exam Present: unable to assess - Urinary Catheter Management Indwelling Urethral Catheter Cath placed during this visit: yes Reason for continuing: Hourly intake/output Insertion date: 09/27/17 Insertion time: 12:10 Indwelling Temp Sensing Catheter Cath placed during this visit: yes Reason for continuing: Hourly intake/output Insertion date: 09/27/17 Insertion time: 12:10 <Luis Wood - Last Filed: 10/02/17 09:02> Vital signs: Vital Signs 10/01/17 14:00 10/01/17 16:00 10/01/17 17:06 Temperature 101.7 F H Pulse Rate 90 87 Respiratory Rate 17 14 Blood Pressure 153/50 H Pulse Oximetry 100 100 10/01/17 18:00 10/01/17 20:00 10/01/17 21:38 Temperature 100.8 F H Pulse Rate 80 98 H Respiratory Rate 20 20 Blood Pressure 152/58 H Pulse Oximetry 100 100 10/01/17 22:00 10/02/17 00:00 10/02/17 01:04 Temperature 100.4 F H Pulse Rate 95 H 87 Respiratory Rate 15 14 Blood Pressure 119/56 L Pulse Oximetry 100 100 10/02/17 02:00 10/02/17 03:08 10/02/17 04:00 Temperature 100.4 F H Pulse Rate 94 H 78 Respiratory Rate 14 18 Blood Pressure 156/56 H Pulse Oximetry 100 100 10/02/17 05:45 10/02/17 06:00 10/02/17 09:44 Temperature 101.1 F H Pulse Rate 76 Respiratory Rate 12 Blood Pressure Pulse Oximetry 97 Intake & Output 10/01/17 10/02/17 10/02/17 18:59 06:59 18:59 Intake Total 880 / 880 1115 / 1115 Output Total 1000 / 1000 1300 / 1300 Balance -120 / -120 -185 / -185 Intake: IV 205 / 205 455 / 455 Ofirmev Inj 1,000 mg In 100 ml 100 / 100 100 / 100 @ 400 mls/hr IV.SIG Q6H PRN Rx# :[id number] fentaNYL 10 mcg/mL Premix Drip 250 / 250 2,500 mcg In 250 ml @ 50 MCG/HR 5 mls/hr IV.SIG TITRATE PRN Rx #:[id number] Keppra Inj 500 MG In NS Inj 100 105 / 105 105 / 105 ML @ 420 mls/hr IV.SIG Q12H [facility] Rx#:[id number] Tube Feeding 555 / 555 660 / 660 Tube Irrigant 120 / 120 Output: Stool 0 / 0 Urine Amount (Catheter) 1000 / 1000 1300 / 1300 Indwelling Temp Sensing 1000 / 1000 1300 / 1300 Catheter Other: # Bowel Movements 0 - Urinary Catheter Management Indwelling Urethral Catheter Cath placed during this visit: no Indwelling Temp Sensing Catheter Cath placed during this visit: no <Ruben Rahman - Last Filed: 10/02/17 12:03> Assessment and Plan - Assessment (1) Intracranial hemorrhage Code(s): I62.9 - Nontraumatic intracranial hemorrhage, unspecified Status: Acute (2) Severe head trauma Code(s): S09.90XA - Unspecified injury of head, initial encounter Status: Acute (3) Pneumothorax on left Code(s): J93.9 - Pneumothorax, unspecified Status: Acute (4) Femur fracture, left Code(s): S72.92XA - Unspecified fracture of left femur, initial encounter for closed fracture Status: Acute (5) Abrasions of multiple sites Code(s): T07.XXXA - Unspecified multiple injuries, initial encounter Status: Acute (6) Multiple rib fractures Code(s): S22.49XA - Multiple fractures of ribs, unspecified side, initial encounter for closed fracture Status: Acute (7) Bilateral scapular fractures Code(s): S42.101A - Fracture of unspecified part of scapula, right shoulder, initial encounter for closed fracture; S42.102A - Fracture of unspecified part of scapula, left shoulder, initial encounter for closed fracture Status: Acute (8) Closed fracture of spinous process of cervical vertebra Code(s): S12.9XXA - Fracture of neck, unspecified, initial encounter Status: Acute Qualifiers: Encounter type: initial encounter Qualified Code(s): S12.9XXA - Fracture of neck, unspecified, initial encounter - Plan Discontinue ICP monitor. ICPs have remained stable throughout his treatment. Continue with critical care. Wean vent and sedation as tolerated. Continue with GI prophylaxis. Continue with DVT prophylaxis. Pt on Lovenox, cleared by Dr. Rahman to remove bolt today with Lovenox. <Luis Wood - Last Filed: 10/02/17 09:02> - Assessment (1) Intracranial hemorrhage Code(s): I62.9 - Nontraumatic intracranial hemorrhage, unspecified Status: Acute (2) Severe head trauma Code(s): S09.90XA - Unspecified injury of head, initial encounter Status: Acute (3) Closed fracture of spinous process of cervical vertebra Code(s): S12.9XXA - Fracture of neck, unspecified, initial encounter Status: Acute Qualifiers: Encounter type: initial encounter Qualified Code(s): S12.9XXA - Fracture of neck, unspecified, initial encounter - Attending Attestation The exam, history, and the medical decision-making described in the above note were completed with the assistance of the mid-level provider. I reviewed and agree with the findings presented. I attest that I had a [id number] encounter with the patient on the same day, and personally performed and documented my assessment and findings in the medical record. Discussed with nursing staff and updated family at bedside. <Ruben Rahman - Last Filed: 10/02/17 12:03>
[2017-10-02 09:25] LABS: Magnesium 2.4 mg/dL (1.5-2.5); Phosphorus 1.6 mg/dL (2.5-4.9)
[2017-10-02] MEDS: Mupirocin 2% Nasal Oint Topical Syringe EACH NARE SCH ×2 (10:13→20:21)
[2017-10-02] MEDS: Docusate Sodium Liq 100 MG/10 ML UDC NG/OG SCH ×2 (10:13→20:21)
[2017-10-02] MEDS: Chlorhexidine 0.12% Oral Kit 15 ML UDC OROPHARYNG SCH ×2 (10:13→20:22)
[2017-10-02] MEDS ORDERED: Labetalol HCl Inj 100 MG/20 ML Vial ONE (10:37)
[2017-10-02] MEDS: Calcium/Vitamin D 250/125 MG Tablet PO SCH ×3 (11:31→19:08)
[2017-10-02] MEDS: Senna/Docusate Sodium 8.6/50 MG Tablet PO SCH ×2 (11:31→20:21)
[2017-10-02] MEDS: Enoxaparin Inj 40 MG/0.4 ML Syringe SQ SCH (11:31)
[2017-10-02] MEDS: Pantoprazole Inj 40 MG Vial IV.PUSH SCH (11:32)
[2017-10-02] MEDS: Dexmedetomidine Inj 200 MCG in Sodium Chlor 0.9% Inj 48 ML IV.CONT PRN ×3 (12:55→22:18)
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
[2017-10-02] MEDS ORDERED: Vancomycin Inj 1,000 MG in Sodium Chlor 0.9% Inj 250 ML IV.SIG SCH (14:00)
[2017-10-02] MEDS: fentaNYL 10 mcg/mL Premix Drip 2,500 MCG/250 ML BAG IV.SIG PRN (14:11)
[2017-10-02] MEDS: Piperacil/Tazo 4.5 GM Premix 4.5 GM/100 ML BAG IV.SIG SCH ×2 (15:00→22:18)
[2017-10-02] MEDS ORDERED: Vancomycin Consult Pharmacy 1 EACH OTHER SCH (15:00)
[2017-10-02] MEDS: Vancomycin Inj 1,250 MG in Sodium Chlor 0.9% Inj 250 ML IV.SIG SCH (16:00)
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
[2017-10-02] MEDS ORDERED: Bisacodyl 10 MG Supp RECTAL ONE (20:00)
[2017-10-02] MEDS: Potassium Chloride 25 MEQ Effervescent Tablet PO PRN (20:21)
[2017-10-03] MEDS: Hypromellose 0.3% Opth Gel 10 GM Bottle EACH EYE SCH ×4 (02:53→21:50)
[2017-10-03] MEDS: Dexmedetomidine Inj 200 MCG in Sodium Chlor 0.9% Inj 48 ML IV.CONT PRN ×4 (03:30→22:34)
[2017-10-03] MEDS: Metoprolol Inj 5 MG/5 ML Vial IV.PUSH SCH ×3 (04:36→16:30)
[2017-10-03] MEDS: Vancomycin Inj 1,250 MG in Sodium Chlor 0.9% Inj 250 ML IV.SIG SCH ×2 (04:36→17:10)
[2017-10-03] MEDS: Oral Hygiene Kit OROPHARYNG SCH ×3 (05:44→16:29)
[2017-10-03 05:48] LABS: Baso % (Auto) 0.3 % (0.0-2.0); Eos # (Auto) 0.3 th/mm3 (0.0-0.4); Eos % (Auto) 3.1 % (0.0-4.0); Hematocrit 22.1 % (39.0-51.0); Hemoglobin 7.6 gm/dL (13.0-17.0); Lymph % (Auto) 11.4 % (9.0-44.0); Mean Corpuscular HGB Conc 34.6 % (32.0-36.0); Mean Corpuscular Hemoglobin 28.9 pg (27.0-34.0); Mean Corpuscular Volume 83.4 fL (80.0-100.0); Mean Platelet Volume 7.6 fL (7.0-11.0); Mono # (Auto) 1.1 th/mm3 (0.0-0.9); Neut # (Auto) 6.4 th/mm3 (1.8-7.7); Neut % (Auto) 72.2 % (16.0-70.0); Platelet Count 235 th/mm3 (150-450); Red Blood Count 2.65 mil/mm3 (4.50-5.90); Red Cell Distribution Width 18.3 % (11.6-17.2); White Blood Count 8.8 th/mm3 (4.0-11.0)
[2017-10-03 05:57] LABS: ABG Base Excess 4.3 mmol/L (-2-2); ABG PCO2 46 mmHg (38-42); ABG PO2 102 mmHg (61-120)
[2017-10-03 06:23] LABS: Anion Gap 3 meq/L (5-15); Blood Urea Nitrogen 12 mg/dL (7-18); Calcium 7.4 mg/dL (8.5-10.1); Carbon Dioxide 30.6 meq/L (21.0-32.0); Chloride 110 meq/L (98-107); Glomerular Filtration Rate Greater Than 89 mL/min (>89); Glucose,Random 120 mg/dL (74-106); Potassium 3.6 meq/L (3.5-5.1); Sodium 144 meq/L (136-145)
[2017-10-03 06:39] LABS: Total Protein 5.2 g/dL (6.4-8.2)
[2017-10-03] MEDS: fentaNYL 10 mcg/mL Premix Drip 2,500 MCG/250 ML BAG IV.SIG PRN (08:30)
[2017-10-03 08:38] LABS: Eosinophils 7 % (0-4); Lymphocytes 6 % (9-44); Metamyelocytes 2 % (0-1); Monocytes 10 % (0-8); Ovalocytes 1+; Platelet Estimate Normal (Normal); Platelet Morphology Normal (Normal); Tallied Nucleated RBC 2 (0-0)
[2017-10-03] MEDS: Piperacil/Tazo 4.5 GM Premix 4.5 GM/100 ML BAG IV.SIG SCH ×3 (09:01→21:53)
[2017-10-03] MEDS: Chlorhexidine 0.12% Oral Kit 15 ML UDC OROPHARYNG SCH ×2 (09:01→19:45)
[2017-10-03] MEDS: Mupirocin 2% Nasal Oint Topical Syringe EACH NARE SCH ×2 (09:01→21:51)
[2017-10-03] MEDS: Pantoprazole Inj 40 MG Vial IV.PUSH SCH (09:02)
[2017-10-03] MEDS: Calcium/Vitamin D 250/125 MG Tablet PO SCH ×3 (09:02→18:30)
[2017-10-03] MEDS: Senna/Docusate Sodium 8.6/50 MG Tablet PO SCH ×2 (09:02→21:51)
[2017-10-03] MEDS: Enoxaparin Inj 40 MG/0.4 ML Syringe SQ SCH (09:02)
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
[2017-10-04] MEDS: Oral Hygiene Kit OROPHARYNG SCH ×4 (00:22→16:00)
[2017-10-04] MEDS: Metoprolol Inj 5 MG/5 ML Vial IV.PUSH SCH ×2 (00:22→04:37)
[2017-10-04] MEDS: Hypromellose 0.3% Opth Gel 10 GM Bottle EACH EYE SCH ×4 (00:22→20:01)
[2017-10-04] MEDS: fentaNYL 10 mcg/mL Premix Drip 2,500 MCG/250 ML BAG IV.SIG PRN ×2 (00:32→20:38)
[2017-10-04] MEDS: Dexmedetomidine Inj 200 MCG in Sodium Chlor 0.9% Inj 48 ML IV.CONT PRN ×3 (01:51→09:13)
[2017-10-04] MEDS ORDERED: Pharmacy Ordered Lab Info OTHER ONE (03:45)
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
[2017-10-04] MEDS: Piperacil/Tazo 4.5 GM Premix 4.5 GM/100 ML BAG IV.SIG SCH ×4 (04:36→20:01)
[2017-10-04] MEDS: Vancomycin Inj 1,250 MG in Sodium Chlor 0.9% Inj 250 ML IV.SIG SCH (04:37)
[2017-10-04 06:09] LABS: ABG Base Excess 4.3 mmol/L (-2-2); ABG PCO2 45 mmHg (38-42); ABG PO2 68 mmHg (61-120)
[2017-10-04 06:18] LABS: Baso # (Auto) 0.1 th/mm3 (0.0-0.2); Baso % (Auto) 0.5 % (0.0-2.0); Eos # (Auto) 0.4 th/mm3 (0.0-0.4); Eos % (Auto) 3.6 % (0.0-4.0); Hematocrit 23.9 % (39.0-51.0); Hemoglobin 8.3 gm/dL (13.0-17.0); Lymph # (Auto) 1.4 th/mm3 (1.0-4.8); Lymph % (Auto) 12.4 % (9.0-44.0); Mean Corpuscular HGB Conc 34.6 % (32.0-36.0); Mean Corpuscular Hemoglobin 29.3 pg (27.0-34.0); Mean Corpuscular Volume 84.8 fL (80.0-100.0); Mean Platelet Volume 7.6 fL (7.0-11.0); Mono % (Auto) 8.9 % (0.0-8.0); Neut # (Auto) 8.1 th/mm3 (1.8-7.7); Neut % (Auto) 74.6 % (16.0-70.0); Platelet Count 332 th/mm3 (150-450); Red Blood Count 2.82 mil/mm3 (4.50-5.90); Red Cell Distribution Width 18.3 % (11.6-17.2); White Blood Count 10.9 th/mm3 (4.0-11.0)
[2017-10-04 06:37] LABS: Albumin 1.8 g/dL (3.4-5.0); Anion Gap 9 meq/L (5-15); Aspartate Aminotransferase 104 U/L (15-37); Blood Urea Nitrogen 14 mg/dL (7-18); Calcium 7.5 mg/dL (8.5-10.1); Carbon Dioxide 28.4 meq/L (21.0-32.0); Chloride 105 meq/L (98-107); Glomerular Filtration Rate Greater Than 89 mL/min (>89); Glucose,Random 146 mg/dL (74-106); Potassium 3.4 meq/L (3.5-5.1); Sodium 142 meq/L (136-145)
[2017-10-04 06:39] LABS: Alanine Aminotransferase 99 U/L (12-78)
[2017-10-04 06:40] LABS: Alkaline Phosphatase 77 U/L (45-117); Total Protein 5.5 g/dL (6.4-8.2)
[2017-10-04 07:50] LABS: Eosinophils 4 % (0-4); Lymphocytes 13 % (9-44); Metamyelocytes 7 % (0-1); Monocytes 9 % (0-8); Myelocytes 1 % (0-0)
[2017-10-04 07:51] LABS: Platelet Estimate Normal (Normal); Platelet Morphology Normal (Normal)
[2017-10-04] MEDS: Pantoprazole Inj 40 MG Vial IV.PUSH SCH (08:18)
[2017-10-04] MEDS: Mupirocin 2% Nasal Oint Topical Syringe EACH NARE SCH ×2 (08:18→20:00)
[2017-10-04] MEDS: Calcium/Vitamin D 250/125 MG Tablet PO SCH ×3 (08:18→18:56)
[2017-10-04] MEDS: Enoxaparin Inj 40 MG/0.4 ML Syringe SQ SCH (08:18)
[2017-10-04] MEDS: Senna/Docusate Sodium 8.6/50 MG Tablet PO SCH ×2 (08:19→20:01)
[2017-10-04] MEDS: Chlorhexidine 0.12% Oral Kit 15 ML UDC OROPHARYNG SCH ×2 (08:20→20:00)
[2017-10-04] MEDS: Potassium Chloride 25 MEQ Effervescent Tablet PO PRN (08:29)
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
[2017-10-04] MEDS ORDERED: Metoprolol Tartrate 50 MG Tablet PO ONE ×2 (11:00→13:00)
[2017-10-04] MEDS: Vancomycin Inj 1,500 MG in Sodium Chlor 0.9% Inj 500 ML IV.SIG SCH ×2 (12:50→20:00)
[2017-10-04] MEDS ORDERED: Lisinopril 20 MG Tablet PO ONE (14:30)
[2017-10-04] MEDS: Lisinopril 20 MG Tablet PO SCH (20:00)
[2017-10-04] MEDS: Metoprolol Tartrate 50 MG Tablet PO SCH (20:00)
[2017-10-05] MEDS: Hypromellose 0.3% Opth Gel 10 GM Bottle EACH EYE SCH ×4 (01:36→21:39)
[2017-10-05] MEDS: Oral Hygiene Kit OROPHARYNG SCH ×5 (01:36→23:52)
[2017-10-05] MEDS: Piperacil/Tazo 4.5 GM Premix 4.5 GM/100 ML BAG IV.SIG SCH ×4 (03:01→21:50)
[2017-10-05] MEDS: Dexmedetomidine Inj 200 MCG in Sodium Chlor 0.9% Inj 48 ML IV.CONT PRN ×6 (03:07→23:53)
[2017-10-05 03:12] LABS: Baso # (Auto) 0.1 th/mm3 (0.0-0.2); Baso % (Auto) 0.4 % (0.0-2.0); Eos # (Auto) 0.3 th/mm3 (0.0-0.4); Hematocrit 24.9 % (39.0-51.0); Hemoglobin 8.4 gm/dL (13.0-17.0); Lymph # (Auto) 1.3 th/mm3 (1.0-4.8); Lymph % (Auto) 7.9 % (9.0-44.0); Mean Corpuscular HGB Conc 33.6 % (32.0-36.0); Mean Corpuscular Hemoglobin 28.2 pg (27.0-34.0); Mean Corpuscular Volume 83.8 fL (80.0-100.0); Mean Platelet Volume 7.2 fL (7.0-11.0); Mono # (Auto) 1.7 th/mm3 (0.0-0.9); Mono % (Auto) 10.5 % (0.0-8.0); Neut # (Auto) 12.7 th/mm3 (1.8-7.7); Neut % (Auto) 79.2 % (16.0-70.0); Platelet Count 388 th/mm3 (150-450); Red Blood Count 2.97 mil/mm3 (4.50-5.90); Red Cell Distribution Width 18.8 % (11.6-17.2); White Blood Count 16.1 th/mm3 (4.0-11.0)
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
[2017-10-05 03:36] LABS: Alanine Aminotransferase 109 U/L (12-78); Anion Gap 5 meq/L (5-15); Aspartate Aminotransferase 96 U/L (15-37); Blood Urea Nitrogen 13 mg/dL (7-18); Calcium 7.7 mg/dL (8.5-10.1); Carbon Dioxide 29.7 meq/L (21.0-32.0); Chloride 105 meq/L (98-107); Glomerular Filtration Rate Greater Than 89 mL/min (>89); Glucose,Random 110 mg/dL (74-106); Potassium 3.5 meq/L (3.5-5.1); Sodium 140 meq/L (136-145)
[2017-10-05 03:38] LABS: Alkaline Phosphatase 82 U/L (45-117); Total Protein 5.5 g/dL (6.4-8.2)
[2017-10-05] MEDS: Vancomycin Inj 1,500 MG in Sodium Chlor 0.9% Inj 500 ML IV.SIG SCH ×3 (04:33→21:50)
[2017-10-05 04:54] LABS: Eosinophils 1 % (0-4); Lymphocytes 5 % (9-44); Metamyelocytes 4 % (0-1); Monocytes 9 % (0-8); Myelocytes 5 % (0-0); Promyelocyte 2 % (0-0)
[2017-10-05 04:55] LABS: Platelet Estimate Normal (Normal); Platelet Morphology Normal (Normal)
[2017-10-05 04:57] LABS: Polychromasia 3.6 % (0.0-1.9)
[2017-10-05 05:44] LABS: ABG Base Excess 3.9 mmol/L (-2-2); ABG PCO2 37 mmHg (38-42); ABG PO2 87 mmHg (61-120)
--- NOTE | 2017-10-05 06:46 | P.PNOP ---
Subjective Interval history: Intubated and stable Physical Exam Vital signs: Vital Signs 10/04/17 08:00 10/04/17 08:07 10/04/17 11:18 Temperature 100.4 F H Pulse Rate 71 Respiratory Rate 13 14 14 Blood Pressure 144/55 H Pulse Oximetry 100 100 98 10/04/17 12:00 10/04/17 15:19 10/04/17 16:00 Temperature 100.4 F H 100.9 F H Pulse Rate 105 H 102 H Respiratory Rate 19 19 18 Blood Pressure 158/84 H 169/81 H Pulse Oximetry 100 98 100 10/04/17 18:00 10/04/17 20:00 10/04/17 20:14 Temperature 101.1 F H 100 F H Pulse Rate 98 H Respiratory Rate 22 22 Blood Pressure 180/78 H Pulse Oximetry 100 10/04/17 22:00 10/04/17 22:48 10/05/17 00:00 Temperature 99.1 F Pulse Rate 88 100 H Respiratory Rate 20 13 Blood Pressure 176/80 H Pulse Oximetry 100 94 L 10/05/17 02:00 10/05/17 04:00 10/05/17 04:16 Temperature 99 F Pulse Rate 94 H 62 Respiratory Rate 11 L 12 Blood Pressure 124/62 Pulse Oximetry 100 Intake & Output 10/04/17 10/04/17 10/05/17 06:59 18:59 06:59 Intake Total 1728.5 / 1728.5 1901 / 1901 1015 / 1015 Output Total 1300 / 1300 2550 / 2550 Balance 428.5 / 428.5 -649 / -649 1015 / 1015 Weight 88.6 kg Intake: IV 1222.5 / 1222.5 870 / 870 1015 / 1015 Precedex Inj 200 MCG In NS Inj 150 / 150 50 / 50 50 / 50 48 ML @ 0.2 MCG/KG/HR 4.64 mls/ hr IV.CONT TITRATE PRN Rx#: [id number] Ofirmev Inj 1,000 mg In 100 ml 100 / 100 @ 400 mls/hr IV.SIG Q6H PRN Rx# :[id number] Zosyn 4.5 GM Premix 4.5 gm In 300 / 300 200 / 200 200 / 200 100 ml @ 200 mls/hr IV.SIG Q6H [facility] Rx#:[id number] Vancomycin Inj 1,250 MG In NS 262.5 / 262.5 Inj 250 ML @ 250 mls/hr IV.SIG Q12H [facility] Rx#:[id number] Vancomycin Inj 1,500 MG In NS 515 / 515 515 / 515 Inj 500 ML @ 250 mls/hr IV.SIG Q8H [facility] Rx#:[id number] fentaNYL 10 mcg/mL Premix Drip 100 / 100 250 / 250 2,500 mcg In 250 ml @ 50 MCG/HR 5 mls/hr IV.SIG TITRATE PRN Rx #:[id number] Keppra Inj 500 MG In NS Inj 100 210 / 210 105 / 105 ML @ 420 mls/hr IV.SIG Q12H [facility] Rx#:[id number] Tube Feeding 506 / 506 671 / 671 Tube Irrigant 360 / 360 Output: Urine Amount (Catheter) 1300 / 1300 2550 / 2550 Indwelling Temp Sensing 1300 / 1300 2550 / 2550 Catheter Other: Date of Last Bowel Movement 10/03/17 10/04/17 10/04/17 # Bowel Movements 3 # Incontinent Bowel Movements 3 Narrative: Left lower extremity: clean dry dressings and intact moderate swelling. Intact distal pulses with no laxity of lower extremity. Bilateral upper extremities: no laxity shoulder, elbow or wrists. multiple abrasions. good distal pulses - Urinary Catheter Management Indwelling Urethral Catheter Cath placed during this visit: yes Reason for continuing: Hourly intake/output Insertion date: 09/27/17 Insertion time: 12:10 Indwelling Temp Sensing Catheter Cath placed during this visit: yes Reason for continuing: Hourly intake/output Insertion date: 09/27/17 Insertion time: 12:10 Results - Labs CBC & Chem 7: 10/05/17 02:52 10/05/17 02:52 Laboratory Results - last 24 hr 10/04/17 10/04/17 10/05/17 04:45 04:45 02:52 WBC 16.1 H RBC 2.97 L Hgb 8.4 L Hct 24.9 L MCV 83.8 MCH 28.2 MCHC 33.6 RDW 18.8 H Plt Count 388 MPV 7.2 Prelim Diff (Auto) Slide review pending Neut % (Auto) 79.2 H Lymph % (Auto) 7.9 L Rusk % (Auto) 10.5 H Eos % (Auto) 2.0 Baso % (Auto) 0.4 Neut # (Auto) 12.7 H Lymph # (Auto) 1.3 Rusk # (Auto) 1.7 H Eos # (Auto) 0.3 Baso # (Auto) 0.1 WBC Differential Manual diff final Manual diff final Seg Neuts % (Manual) 61 71 H Band Neuts % (Manual) 4 3 Lymphocytes % (Manual) 13 5 L Monocytes % (Manual) 9 H 9 H Eosinophils % (Manual) 4 1 Basophils % (Manual) 1 Metamyelocytes % (Man) 7 H 4 H Myelocytes % (Man) 1 H 5 H Promyelocytes % (Man) 2 H Abs Neuts (Manual) 8.0 H 13.7 H Differential Comment . Platelet Estimate Normal Normal Platelet Morphology Normal Normal Polychromasia 3.6 H Keratocytes Occ H Puncture Site Patient Temperature O2 Saturation ABG pH ABG pCO2 ABG pO2 ABG HCO3 ABG O2 Content ABG Base Excess ABG Methemoglobin Hemoglobin Carboxyhemoglobin O2 Delivery Device Vent Setting Inspired O2 Critical Value Sodium Potassium Chloride Carbon Dioxide Anion Gap BUN Creatinine Estimated GFR Random Glucose Calcium Total Bilirubin AST ALT Alkaline Phosphatase Total Protein Albumin Vancomycin Trough 3.4 L 10/05/17 10/05/17 02:52 05:34 WBC RBC Hgb Hct MCV MCH MCHC RDW Plt Count MPV Prelim Diff (Auto) Neut % (Auto) Lymph % (Auto) Rusk % (Auto) Eos % (Auto) Baso % (Auto) Neut # (Auto) Lymph # (Auto) Rusk # (Auto) Eos # (Auto) Baso # (Auto) WBC Differential Seg Neuts % (Manual) Band Neuts % (Manual) Lymphocytes % (Manual) Monocytes % (Manual) Eosinophils % (Manual) Basophils % (Manual) Metamyelocytes % (Man) Myelocytes % (Man) Promyelocytes % (Man) Abs Neuts (Manual) Differential Comment Platelet Estimate Platelet Morphology Polychromasia Keratocytes Puncture Site Art line Patient Temperature 98.6 O2 Saturation 95 ABG pH 7.48 H ABG pCO2 37 L ABG pO2 87 ABG HCO3 27 H ABG O2 Content 11.3 L ABG Base Excess 3.9 H ABG Methemoglobin 0.8 Hemoglobin 8.4 L Carboxyhemoglobin 2.6 O2 Delivery Device Vent Vent Setting Prvc/ac Inspired O2 35 Critical Value No Sodium 140 Potassium 3.5 Chloride 105 Carbon Dioxide 29.7 Anion Gap 5 BUN 13 Creatinine 0.52 L Estimated GFR Greater than 89 Random Glucose 110 H Calcium 7.7 L Total Bilirubin 1.1 H AST 96 H ALT 109 H Alkaline Phosphatase 82 Total Protein 5.5 L Albumin 2.0 L Vancomycin Trough Microbiology 10/01/17 15:15 Sputum - Endotracheal Gram Stain - Final 10/01/17 15:15 Sputum - Endotracheal Sputum Culture - Final S. aureus MRSA Enterobacter aerogenes Staphylococcus aureus 10/03/17 11:47 Blood - Peripheral Aerobic Blood Culture - Preliminary No growth in 1 day 10/03/17 11:47 Blood - Peripheral Anaerobic Blood Culture - Preliminary No growth in 1 day 10/03/17 11:40 Blood - Peripheral Aerobic Blood Culture - Preliminary No growth in 1 day 10/03/17 11:40 Blood - Peripheral Anaerobic Blood Culture - Preliminary No growth in 1 day 10/01/17 16:23 Blood - Peripheral Aerobic Blood Culture - Preliminary No growth in 3 days 10/01/17 16:23 Blood - Peripheral Anaerobic Blood Culture - Preliminary No growth in 3 days 10/01/17 16:18 Blood - Peripheral Aerobic Blood Culture - Preliminary No growth in 3 days 10/01/17 16:18 Blood - Peripheral Anaerobic Blood Culture - Preliminary No growth in 3 days - Imaging Impressions Chest X-Ray 10/05/17 06:00 CONCLUSION: 1. Apparent mild interval increase in the airspace opacity at the right lung base. 2. The airspace disease at the left lung base does not appear significantly changed. 3. Probable small effusions. Assessment and Plan - Assessment and Plan Left femur fracture IM nail POD 5 Physical therapy for 50% weightbearing left lower extremity Daily dressing changes Ice to decrease swelling ortho surgeries complete Bilateral scapular fractures Weightbearing as tolerated
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
[2017-10-05] MEDS: Chlorhexidine 0.12% Oral Kit 15 ML UDC OROPHARYNG SCH ×2 (09:04→21:38)
[2017-10-05] MEDS: Senna/Docusate Sodium 8.6/50 MG Tablet PO SCH ×2 (09:05→21:49)
[2017-10-05] MEDS: Calcium/Vitamin D 250/125 MG Tablet PO SCH ×3 (09:23→18:29)
[2017-10-05] MEDS: Lisinopril 20 MG Tablet PO SCH ×2 (09:23→21:50)
[2017-10-05] MEDS: Metoprolol Tartrate 50 MG Tablet PO SCH ×2 (09:23→21:38)
[2017-10-05] MEDS: Mupirocin 2% Nasal Oint Topical Syringe EACH NARE SCH ×2 (09:24→21:38)
[2017-10-05] MEDS: Enoxaparin Inj 40 MG/0.4 ML Syringe SQ SCH (09:24)
[2017-10-05] MEDS: Pantoprazole Inj 40 MG Vial IV.PUSH SCH (09:24)
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
[2017-10-05] MEDS: QUEtiapine 25 MG Tablet PO SCH ×2 (11:09→21:48)
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
[2017-10-05] MEDS ORDERED: Pharmacy Ordered Lab Info OTHER ONE (12:45)
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
--- NOTE | 2017-10-05 17:08 | P.PNWCN ---
Wound Care Nurse Consult Description: Wound consult ordered by Mariann HINTON for wound management. Communicated with: Lissy ESPANA,Mariann HINTON Recommendation: 1. Cleanse all open wounds with normal saline/wound cleanser pat dry. 2. Apply Optifoam gentle boarder dressing to Right lateral shoulder and Right clavicle wound change dressings every 3 days or as needed for exudate. 3. Avoid using adhesive tape on patient when possible to reduce irritation and blister forming.Please do not use Telfa non adhering dressing on draining wounds ,Telfa is non absorbant and can cause maceration by trapping exudate/moisture on skin. 4. Ensure patient has UltraSorb moisture wicking pads under all extremities to aide in reducing moisture/exudate management. 5. Sign and date all dressings. 6. Reconsult wound nurse when exudate/edema reduces to scant for wound care change. Additional information: Patient was seen today by automatic typewriter inspector and Lissy ESPANA for wound management.Patient currently on vent with sedation.Dressings removed from right upper extremity with difficulty due to patient having irritation and bullas from adhesive tape.Right lateral shoulder and right clavicle trauma wounds cleansed with normal saline pat dry .Left lateral shoulder is mixed partial/full thickness tissue loss.Moderate serosanguineous exudate noted with out odor.Wound base moist red/pink non granular tissue with diffuse fascia present.Wound showing non signs or symptoms of infection.Right clavicle partial thickness wound base is red/pink non granular tissue with moderate serosanguineous exudate noted with out odor.Cavilon skin prep applied to periwound and Optifoam gentle applied for exudate management.Patient noted to have +2 pitting weeping edema to all extremities.UltraSorb moisture wicking pads placed under patient for moisture control.Patient was offloaded to left side with use of 2 pillows upon writers departure.Dressings signed and dated. Wound/Pressure Injury - Wound Right Shoulder Wound Assessment: Ongoing Wound Type: Abrasion Is This a Chronic Wound: No Requested from Provider a Wound Care Consult: No (Stephane ESPANA,[facility] seen 10/05) Wound Bed Appearance: [place], Red Surrounding Tissue Temperature: Cool Drainage Description: Serosanguinous Drainage Amount: Moderate Drainage Odor: No Odor Dressing Status: Changed Primary Dressing: gentle foam Wound Dressing Change Date: 10/05/17 Right Arm Wound Assessment: Ongoing Wound Type: Traumatic Wound Is This a Chronic Wound: No Requested from Provider a Wound Care Consult: No (Stephane ESPANA,[facility] seen 10/05) Wound Bed Appearance: [place], Red Surrounding Tissue Temperature: Cool Drainage Description: Serosanguinous Drainage Amount: Minimal Drainage Odor: No Odor Dressing Status: Changed Cleansing Solution: Saline Primary Dressing: gentle foam Wound Dressing Change Date: 10/05/17 Right Ankle Wound Dressing Change Date: 09/28/17 Left Thigh Wound Dressing Change Date: 09/29/17 Incision - Patient Status Premedicated for Pain Prior to Dressing Change: Yes (fentanyl gtt) - Incision Left Lower Thigh Incision Assessment: Ongoing Incision Type: Incision Incision Description: [place] Incision Dressing Status: Changed Primary Dressing: Petroleum Gauze Cover Dressing: Absorbant Pad, Non-Adherent Gauze Pads Other Cover Dressing: primapore Tape Type: Cloth Incision Dressing Change Date: 10/01/17 Incision/Surgery Date: 09/29/17 Left Thigh Other Cover Dressing: primapore
[2017-10-05] MEDS: fentaNYL 10 mcg/mL Premix Drip 2,500 MCG/250 ML BAG IV.SIG PRN (21:39)
[2017-10-06] MEDS: Hypromellose 0.3% Opth Gel 10 GM Bottle EACH EYE SCH ×4 (02:04→19:41)
[2017-10-06] MEDS: Oral Hygiene Kit OROPHARYNG SCH ×3 (03:17→15:22)
[2017-10-06] MEDS: QUEtiapine 25 MG Tablet PO SCH ×3 (03:17→19:41)
[2017-10-06] MEDS: Piperacil/Tazo 4.5 GM Premix 4.5 GM/100 ML BAG IV.SIG SCH ×4 (03:17→21:20)
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
[2017-10-06 04:50] LABS: Baso # (Auto) 0.1 th/mm3 (0.0-0.2); Baso % (Auto) 0.4 % (0.0-2.0); Eos # (Auto) 0.4 th/mm3 (0.0-0.4); Hematocrit 23.2 % (39.0-51.0); Hemoglobin 7.6 gm/dL (13.0-17.0); Lymph # (Auto) 1.5 th/mm3 (1.0-4.8); Lymph % (Auto) 10.9 % (9.0-44.0); Mean Corpuscular HGB Conc 32.6 % (32.0-36.0); Mean Corpuscular Volume 85.8 fL (80.0-100.0); Mean Platelet Volume 6.9 fL (7.0-11.0); Mono # (Auto) 1.3 th/mm3 (0.0-0.9); Mono % (Auto) 9.6 % (0.0-8.0); Neut # (Auto) 10.5 th/mm3 (1.8-7.7); Neut % (Auto) 76.1 % (16.0-70.0); Platelet Count 386 th/mm3 (150-450); Red Blood Count 2.71 mil/mm3 (4.50-5.90); Red Cell Distribution Width 18.5 % (11.6-17.2); White Blood Count 13.8 th/mm3 (4.0-11.0)
[2017-10-06 05:17] LABS: ABG Base Excess 3.2 mmol/L (-2-2); ABG PCO2 42 mmHg (38-42); ABG PO2 94 mmHg (61-120)
[2017-10-06 05:20] LABS: Alanine Aminotransferase 122 U/L (12-78); Albumin 1.9 g/dL (3.4-5.0); Alkaline Phosphatase 90 U/L (45-117); Anion Gap 6 meq/L (5-15); Aspartate Aminotransferase 100 U/L (15-37); Blood Urea Nitrogen 15 mg/dL (7-18); Calcium 7.4 mg/dL (8.5-10.1); Carbon Dioxide 28.8 meq/L (21.0-32.0); Chloride 107 meq/L (98-107); Glomerular Filtration Rate Greater Than 89 mL/min (>89); Glucose,Random 97 mg/dL (74-106); Potassium 3.2 meq/L (3.5-5.1); Sodium 142 meq/L (136-145); Total Protein 5.2 g/dL (6.4-8.2)
[2017-10-06] MEDS: Vancomycin Inj 1,500 MG in Sodium Chlor 0.9% Inj 500 ML IV.SIG SCH ×3 (05:23→21:23)
[2017-10-06] MEDS: Dexmedetomidine Inj 200 MCG in Sodium Chlor 0.9% Inj 48 ML IV.CONT PRN (06:10)
[2017-10-06 06:43] LABS: Eosinophils 2 % (0-4); Lymphocytes 14 % (9-44); Monocytes 1 % (0-8); Myelocytes 2 % (0-0)
[2017-10-06 06:44] LABS: Platelet Estimate Normal (Normal); Platelet Morphology Normal (Normal); Polychromasia 2.1 % (0.0-1.9); Toxic Granulation 1+
[2017-10-06] MEDS: Mupirocin 2% Nasal Oint Topical Syringe EACH NARE SCH (08:00)
[2017-10-06] MEDS: Enoxaparin Inj 40 MG/0.4 ML Syringe SQ SCH (08:00)
[2017-10-06] MEDS: Pantoprazole Inj 40 MG Vial IV.PUSH SCH (08:00)
[2017-10-06] MEDS: Chlorhexidine 0.12% Oral Kit 15 ML UDC OROPHARYNG SCH ×2 (08:01→19:42)
[2017-10-06] MEDS: Senna/Docusate Sodium 8.6/50 MG Tablet PO SCH ×2 (08:01→20:55)
[2017-10-06] MEDS: Metoprolol Tartrate 50 MG Tablet PO SCH (08:01)
[2017-10-06] MEDS: Lisinopril 20 MG Tablet PO SCH ×2 (08:01→21:23)
[2017-10-06] MEDS: Calcium/Vitamin D 250/125 MG Tablet PO SCH ×3 (08:01→17:39)
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
[2017-10-06 14:58] LABS: Bacteria,Urine Occasional /hpf; Bilirubin,Urine Negative (Negative); Clarity,Urine Hazy (Clear); Color,Urine Amber (Yellw/Straw); Glucose,Urine (UA) Negative (Negative); Leukocyte Esterase,Urine Negative (Negative); Nitrite,Urine Negative (Negative); Specific Gravity,Urine 1.033 (1.002-1.035)
--- NOTE | 2017-10-06 15:15 | P.PNOP ---
Subjective Interval history: Intubated and sedated Physical Exam Vital signs: Vital Signs 10/05/17 16:00 10/05/17 16:14 10/05/17 17:30 Temperature 97.7 F Pulse Rate 119 H 112 H Respiratory Rate 17 17 18 Blood Pressure 156/71 H Pulse Oximetry 95 98 10/05/17 18:00 10/05/17 20:00 10/05/17 20:18 Temperature 100.4 F H Pulse Rate 104 H 98 H Respiratory Rate 13 9 L Blood Pressure 159/70 H Pulse Oximetry 100 10/05/17 22:00 10/05/17 23:00 10/05/17 23:55 Temperature 101 F H Pulse Rate 80 Respiratory Rate 16 Blood Pressure Pulse Oximetry 100 10/06/17 00:00 10/06/17 02:00 10/06/17 02:32 Temperature 100 F H Pulse Rate 98 H 91 H Respiratory Rate 13 16 Blood Pressure 152/67 H Pulse Oximetry 99 99 10/06/17 04:00 10/06/17 04:22 10/06/17 06:00 Temperature 99.3 F Pulse Rate 74 90 Respiratory Rate 11 L 13 Blood Pressure 107/51 L Pulse Oximetry 99 100 10/06/17 07:56 10/06/17 08:00 10/06/17 10:00 Temperature 99.3 F Pulse Rate 105 H 110 H Respiratory Rate 20 19 Blood Pressure 158/72 H Pulse Oximetry 100 95 10/06/17 11:43 10/06/17 12:00 10/06/17 14:00 Temperature 100.9 F H Pulse Rate 105 H 117 H Respiratory Rate 16 16 Blood Pressure 151/73 H Pulse Oximetry 100 100 Intake & Output 10/05/17 10/06/17 10/06/17 18:59 06:59 18:59 Intake Total 2335 / 2335 915 / 915 715 / 715 Output Total 3800 / 3800 1900 / 1900 Balance -1465 / -1465 -985 / -985 715 / 715 Weight 84.7 kg Intake: IV 1735 / 1735 915 / 915 715 / 715 Precedex Inj 200 MCG In NS Inj 100 / 100 100 / 100 48 ML @ 0.2 MCG/KG/HR 4.64 mls/ hr IV.CONT TITRATE PRN Rx#: [id number] Ofirmev Inj 1,000 mg In 100 ml 200 / 200 100 / 100 100 / 100 @ 400 mls/hr IV.SIG Q6H PRN Rx# :[id number] Zosyn 4.5 GM Premix 4.5 gm In 200 / 200 200 / 200 100 / 100 100 ml @ 200 mls/hr IV.SIG Q6H SRIDEVI Rx#:[id number] Vancomycin Inj 1,500 MG In NS 1030 / 1030 515 / 515 515 / 515 Inj 500 ML @ 250 mls/hr IV.SIG Q8H SRIDEVI Rx#:[id number] fentaNYL 10 mcg/mL Premix Drip 100 / 100 2,500 mcg In 250 ml @ 50 MCG/HR 5 mls/hr IV.SIG TITRATE PRN Rx #:[id number] Keppra Inj 500 MG In NS Inj 100 105 / 105 ML @ 420 mls/hr IV.SIG Q12H SRIDEVI Rx#:[id number] Tube Feeding 0 / 0 Tube Irrigant 0 / 0 Anesthesia Amount 600 / 600 Output: Stool 0 / 0 Urine Amount (Catheter) 3500 / 3500 1900 / 1900 Indwelling Temp Sensing 3500 / 3500 1900 / 1900 Catheter Gastric Drainage 300 / 300 Right Nare Nasogastric Tube 300 / 300 Other: Date of Last Bowel Movement 10/04/17 10/04/17 10/06/17 # Bowel Movements 0 # Incontinent Bowel Movements 0 Narrative: Bilateral upper extremities in restraints. He has good distal pulses capillary refills. Left lower extremity: Examination reveals surgical incisions clean dry and intact. Pablo in position. No erythema. Swelling has continued to improve and is +2 distally he has intact sensation with good capillary refills. He has no laxity through the ligamentous exam of knee or ankle motion. Right lower extremity: No laxity in hip or knee range of motion. Examination of the ankle reveals bruising throughout the calf and anterior portion of the tibia. He has crepitus through range of motion over the medial malleolus. Distally is intact distal pulses and good capillary refills - Urinary Catheter Management Indwelling Urethral Catheter Cath placed during this visit: yes Reason for continuing: Hourly intake/output Insertion date: 09/27/17 Insertion time: 12:10 Indwelling Temp Sensing Catheter Cath placed during this visit: yes Reason for continuing: Hourly intake/output Insertion date: 09/27/17 Insertion time: 12:10 Results - Labs CBC & Chem 7: 10/06/17 04:21 10/06/17 04:21 Laboratory Results - last 24 hr 10/05/17 10/06/17 10/06/17 17:33 04:21 04:21 WBC 13.8 H RBC 2.71 L Hgb 7.6 L Hct 23.2 L MCV 85.8 MCH 28.0 MCHC 32.6 RDW 18.5 H Plt Count 386 MPV 6.9 L Prelim Diff (Auto) Slide review pending Neut % (Auto) 76.1 H Lymph % (Auto) 10.9 [place] % (Auto) 9.6 H Eos % (Auto) 3.0 Baso % (Auto) 0.4 Neut # (Auto) 10.5 H Lymph # (Auto) 1.5 [place] # (Auto) 1.3 H Eos # (Auto) 0.4 Baso # (Auto) 0.1 WBC Differential Manual diff final Seg Neuts % (Manual) 74 H Band Neuts % (Manual) 7 H Lymphocytes % (Manual) 14 Monocytes % (Manual) 1 Eosinophils % (Manual) 2 Myelocytes % (Man) 2 H Abs Neuts (Manual) 11.5 H Differential Comment . Toxic Granulation 1+ H Platelet Estimate Normal Platelet Morphology Normal Polychromasia 2.1 H Puncture Site Patient Temperature O2 Saturation ABG pH ABG pCO2 ABG pO2 ABG HCO3 ABG O2 Content ABG Base Excess ABG Methemoglobin Anirudh Test Hemoglobin Carboxyhemoglobin O2 Delivery Device Vent Setting Inspired O2 Critical Value Sodium 142 Potassium 3.2 L Chloride 107 Carbon Dioxide 28.8 Anion Gap 6 BUN 15 Creatinine 0.67 Estimated GFR Greater than 89 POC Glucose 109 Random Glucose 97 Calcium 7.4 L* Prot Corrected Calcium 8.5 Total Bilirubin 1.1 H AST 100 H ALT 122 H Alkaline Phosphatase 90 Total Protein 5.2 L Albumin 1.9 L Urine Color Urine Clarity Urine pH Ur Specific [place] Urine Protein Urine Glucose (UA) Urine Ketones Urine Occult Blood Urine Nitrate Urine Bilirubin Urine Urobilinogen Ur Leukocyte Esterase Urine RBC Urine WBC Urine Bacteria Micro UA Comment Urine Culture Comments 10/06/17 10/06/17 05:08 14:30 WBC RBC Hgb Hct MCV MCH MCHC RDW Plt Count MPV Prelim Diff (Auto) Neut % (Auto) Lymph % (Auto) [place] % (Auto) Eos % (Auto) Baso % (Auto) Neut # (Auto) Lymph # (Auto) [place] # (Auto) Eos # (Auto) Baso # (Auto) WBC Differential Seg Neuts % (Manual) Band Neuts % (Manual) Lymphocytes % (Manual) Monocytes % (Manual) Eosinophils % (Manual) Myelocytes % (Man) Abs Neuts (Manual) Differential Comment Toxic Granulation Platelet Estimate Platelet Morphology Polychromasia Puncture Site Left radial Patient Temperature 98.6 O2 Saturation 95 ABG pH 7.43 H ABG pCO2 42 ABG pO2 94 ABG HCO3 27 H ABG O2 Content 10.8 L ABG Base Excess 3.2 H ABG Methemoglobin 0.7 Anirudh Test Present Hemoglobin 8.0 L Carboxyhemoglobin 2.5 O2 Delivery Device Vent Vent Setting Prvc/ac Inspired O2 35 Critical Value No Sodium Potassium Chloride Carbon Dioxide Anion Gap BUN Creatinine Estimated GFR POC Glucose Random Glucose Calcium Prot Corrected Calcium Total Bilirubin AST ALT Alkaline Phosphatase Total Protein Albumin Urine Color Zuly Urine Clarity Hazy H Urine pH 5.0 Ur Specific [place] 1.033 Urine Protein Negative Urine Glucose (UA) Negative Urine Ketones Negative Urine Occult Blood Moderate H Urine Nitrate Negative Urine Bilirubin Negative Urine Urobilinogen 2.0 H Ur Leukocyte Esterase Negative Urine RBC 29 H Urine WBC 5 Urine Bacteria Occasional H Micro UA Comment Cath-culture ind Urine Culture Comments Cath-cult indicated Microbiology 10/03/17 11:47 Blood - Peripheral Aerobic Blood Culture - Preliminary No growth in 3 days 10/03/17 11:47 Blood - Peripheral Anaerobic Blood Culture - Preliminary No growth in 3 days 10/03/17 11:40 Blood - Peripheral Aerobic Blood Culture - Preliminary No growth in 3 days 10/03/17 11:40 Blood - Peripheral Anaerobic Blood Culture - Preliminary No growth in 3 days 10/01/17 16:23 Blood - Peripheral Aerobic Blood Culture - Final No growth in 5 days 10/01/17 16:23 Blood - Peripheral Anaerobic Blood Culture - Final No growth in 5 days 10/01/17 16:18 Blood - Peripheral Aerobic Blood Culture - Final No growth in 5 days 10/01/17 16:18 Blood - Peripheral Anaerobic Blood Culture - Final No growth in 5 days - Imaging Impressions Ankle X-Ray 10/06/17 00:00 CONCLUSION: Distal tibial fracture. Chest X-Ray 10/06/17 06:00 CONCLUSION: Stable appearance with abnormal opacity remaining at the right lung base. Assessment and Plan - Assessment and Plan Left femur fracture IM nail POD 7 Physical therapy for 50% weightbearing left lower extremity Daily dressing changes Ice to decrease swelling Bilateral scapular fractures Weightbearing as tolerated Right medial malleolus fracture Orthotec for posterior and stirrup splint N.p.o. after midnight Sign consents Surgery tomorrow morning with Dr. Willams reduction internal fixation of right distal tibia
[2017-10-06] MEDS: Potassium Chlor 40 mEq Premix 40 MEQ/100 ML PIGGYBACK IV.SIG PRN (16:41)
[2017-10-06] MEDS ORDERED: Cathflo Activase Inj 2 MG Vial IV.PUSH ONE (19:30)
[2017-10-06] MEDS: Metoprolol Inj 5 MG/5 ML Vial IV.PUSH SCH (19:42)
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
[2017-10-07 00:02] LABS: Potassium 3.6 meq/L (3.5-5.1)
[2017-10-07 00:04] LABS: Magnesium 2.3 mg/dL (1.5-2.5)
[2017-10-07] MEDS: Oral Hygiene Kit OROPHARYNG SCH ×5 (00:43→23:54)
[2017-10-07] MEDS: Hypromellose 0.3% Opth Gel 10 GM Bottle EACH EYE SCH ×4 (00:43→20:12)
[2017-10-07] MEDS: Metoprolol Inj 5 MG/5 ML Vial IV.PUSH SCH ×4 (01:48→20:13)
[2017-10-07] MEDS: Piperacil/Tazo 4.5 GM Premix 4.5 GM/100 ML BAG IV.SIG SCH ×2 (02:08→08:01)
[2017-10-07] MEDS: QUEtiapine 25 MG Tablet PO SCH ×3 (02:08→20:13)
[2017-10-07] MEDS: fentaNYL 10 mcg/mL Premix Drip 2,500 MCG/250 ML BAG IV.SIG PRN ×2 (02:09→21:25)
[2017-10-07 04:11] LABS: Baso # (Auto) 0.1 th/mm3 (0.0-0.2); Baso % (Auto) 0.3 % (0.0-2.0); Eos # (Auto) 0.5 th/mm3 (0.0-0.4); Eos % (Auto) 2.4 % (0.0-4.0); Hematocrit 24.5 % (39.0-51.0); Hemoglobin 8.4 gm/dL (13.0-17.0); Lymph # (Auto) 1.7 th/mm3 (1.0-4.8); Lymph % (Auto) 8.2 % (9.0-44.0); Mean Corpuscular HGB Conc 34.1 % (32.0-36.0); Mean Corpuscular Hemoglobin 29.6 pg (27.0-34.0); Mean Corpuscular Volume 86.6 fL (80.0-100.0); Mean Platelet Volume 7.3 fL (7.0-11.0); Mono # (Auto) 1.5 th/mm3 (0.0-0.9); Mono % (Auto) 7.4 % (0.0-8.0); Neut # (Auto) 16.9 th/mm3 (1.8-7.7); Neut % (Auto) 81.7 % (16.0-70.0); Platelet Count 465 th/mm3 (150-450); Red Blood Count 2.83 mil/mm3 (4.50-5.90); Red Cell Distribution Width 18.9 % (11.6-17.2); White Blood Count 20.7 th/mm3 (4.0-11.0)
[2017-10-07 04:27] LABS: Alanine Aminotransferase 117 U/L (12-78); Albumin 2.2 g/dL (3.4-5.0); Anion Gap 5 meq/L (5-15); Aspartate Aminotransferase 69 U/L (15-37); Blood Urea Nitrogen 14 mg/dL (7-18); Calcium 7.9 mg/dL (8.5-10.1); Carbon Dioxide 29.6 meq/L (21.0-32.0); Chloride 107 meq/L (98-107); Glomerular Filtration Rate Greater Than 89 mL/min (>89); Glucose,Random 102 mg/dL (74-106); Potassium 3.5 meq/L (3.5-5.1); Sodium 142 meq/L (136-145)
[2017-10-07 04:28] LABS: Alkaline Phosphatase 112 U/L (45-117); Total Protein 5.8 g/dL (6.4-8.2)
[2017-10-07] MEDS ORDERED: Pharmacy Ordered Lab Info OTHER ONE (04:45)
[2017-10-07 04:48] LABS: Eosinophils 5 % (0-4); Lymphocytes 9 % (9-44); Metamyelocytes 3 % (0-1); Monocytes 6 % (0-8)
[2017-10-07 04:49] LABS: Platelet Morphology Normal (Normal)
[2017-10-07 04:50] LABS: Polychromasia 4.3 % (0.0-1.9)
[2017-10-07 04:52] LABS: Acanthocytes Occ
--- NOTE | 2017-10-07 04:57 | XR ---
EXAM DATE: 10/07/2017 4:50 AM EDT AGE/SEX: 41 years / Male INDICATIONS: Shortness of breath. CLINICAL DATA: This is the patient's subsequent encounter. Patient reports that signs and symptoms h ave been present for 2 weeks and indicates a pain score of Nonresponsive. MEDICAL/SURGICAL HISTORY: Non-responsive. Non-responsive. COMPARISON: . FINDINGS: A single AP semierect view of the chest was obtained and again demonstrates an endotracheal tube in p lace with the tip 2 cm above the clarissa. The nasogastric tube remains in place and is seen coursing t hrough the esophagus into the stomach. The left subclavian central venous catheter is stable in appea kerry. Abnormal opacity remains the right lung base with blunting of the costophrenic angle. The josy ent is mildly rotated. The heart size is at the upper limits of normal. Discoid atelectasis is now no edward in the left perihilar region and left lung base. CONCLUSION: 1. Abnormal opacity remains at the right lung base with blunting the costophrenic angle. 2. New discoid atelectasis in left perihilar region and left lung base. Electronically signed by: Dick Turner MD 10/07/2017 4:56 AM EDT
[2017-10-07 05:20] LABS: ABG PCO2 39 mmHg (38-42); ABG PO2 75 mmHg (61-120)
[2017-10-07] MEDS: Vancomycin Inj 1,500 MG in Sodium Chlor 0.9% Inj 500 ML IV.SIG SCH (05:53)
--- NOTE | 2017-10-07 07:05 | P.PNOP ---
Subjective Interval history: s/p right medial malleolus fx discovered yesterday POD 8 s/p IMN left femur s/p bilateral scapula fxs intubated/sedated Physical Exam Vital signs: Vital Signs 10/06/17 07:56 10/06/17 08:00 10/06/17 10:00 Temperature 99.3 F Pulse Rate 105 H 110 H Respiratory Rate 20 19 Blood Pressure 158/72 H Pulse Oximetry 100 95 10/06/17 11:43 10/06/17 12:00 10/06/17 14:00 Temperature 100.9 F H Pulse Rate 105 H 117 H Respiratory Rate 16 16 Blood Pressure 151/73 H Pulse Oximetry 100 100 10/06/17 16:00 10/06/17 16:43 10/06/17 18:00 Temperature 100.9 F H Pulse Rate 136 H 114 H Respiratory Rate 22 17 Blood Pressure 147/81 H Pulse Oximetry 97 98 10/06/17 20:00 10/06/17 20:16 10/06/17 22:00 Temperature 101.2 F H Pulse Rate 92 H 96 H Respiratory Rate 17 14 Blood Pressure 154/67 H Pulse Oximetry 100 100 10/07/17 00:00 10/07/17 01:25 10/07/17 02:00 Temperature 100 F H Pulse Rate 110 H 72 Respiratory Rate 22 18 Blood Pressure 143/86 H Pulse Oximetry 97 96 10/07/17 04:00 10/07/17 04:36 10/07/17 06:00 Temperature 101.5 F H Pulse Rate 84 114 H Respiratory Rate 13 17 Blood Pressure 139/63 Pulse Oximetry 100 100 Intake & Output 10/06/17 10/07/17 10/07/17 18:59 06:59 18:59 Intake Total 1674 / 1674 1438 / 1438 Output Total 3350 / 3350 1675 / 1675 Balance -1676 / -1676 -237 / -237 Weight 82 kg Intake: IV 1230 / 1230 1115 / 1115 Ofirmev Inj 1,000 mg In 100 ml 100 / 100 200 / 200 @ 400 mls/hr IV.SIG Q6H PRN Rx# :[id number] Zosyn 4.5 GM Premix 4.5 gm In 100 / 100 200 / 200 100 ml @ 200 mls/hr IV.SIG Q6H SRIDEVI Rx#:[id number] KCl 40 mEq Premix Inj 40 meq In 100 / 100 100 ml @ 25 mls/hr IV.SIG UNSCH PRN Rx#:[id number] Vancomycin Inj 1,500 MG In NS 1030 / 1030 515 / 515 Inj 500 ML @ 250 mls/hr IV.SIG Q8H SRIDEVI Rx#:[id number] fentaNYL 10 mcg/mL Premix Drip 100 / 100 2,500 mcg In 250 ml @ 50 MCG/HR 5 mls/hr IV.SIG TITRATE PRN Rx #:[id number] Tube Feeding 284 / 284 203 / 203 Tube Irrigant 0 / 0 120 / 120 Water Bolus Amount 160 / 160 Output: Stool 0 / 0 Urine Amount (Catheter) 3350 / 3350 1675 / 1675 Indwelling Temp Sensing 3350 / 3350 1675 / 1675 Catheter Other: Date of Last Bowel Movement 10/06/17 10/06/17 # Bowel Movements 2 0 # Incontinent Bowel Movements 2 Narrative: RLE: +short leg splint LLE: dressings clean and dry. intac.t - Urinary Catheter Management Indwelling Urethral Catheter Cath placed during this visit: yes Reason for continuing: Hourly intake/output Insertion date: 09/27/17 Insertion time: 12:10 Indwelling Temp Sensing Catheter Cath placed during this visit: yes Reason for continuing: Hourly intake/output Insertion date: 10/06/17 Insertion time: 15:00 Results - Labs CBC & Chem 7: 10/07/17 03:25 10/07/17 03:25 Laboratory Results - last 24 hr 10/06/17 10/06/17 10/07/17 14:30 23:12 03:25 WBC 20.7 H RBC 2.83 L Hgb 8.4 L Hct 24.5 L MCV 86.6 MCH 29.6 MCHC 34.1 RDW 18.9 H Plt Count 465 H MPV 7.3 Prelim Diff (Auto) Slide review pending Neut % (Auto) 81.7 H Lymph % (Auto) 8.2 L [place] % (Auto) 7.4 Eos % (Auto) 2.4 Baso % (Auto) 0.3 Neut # (Auto) 16.9 H Lymph # (Auto) 1.7 [place] # (Auto) 1.5 H Eos # (Auto) 0.5 H Baso # (Auto) 0.1 WBC Differential Manual diff final Seg Neuts % (Manual) 75 H Band Neuts % (Manual) 2 Lymphocytes % (Manual) 9 Monocytes % (Manual) 6 Eosinophils % (Manual) 5 H Metamyelocytes % (Man) 3 H Abs Neuts (Manual) 16.6 H Differential Comment . Platelet Estimate High H Platelet Morphology Normal Polychromasia 4.3 H Acanthocytes (Spur) Occ H Keratocytes Occ H Puncture Site Patient Temperature O2 Saturation ABG pH ABG pCO2 ABG pO2 ABG HCO3 ABG O2 Content ABG Base Excess ABG Methemoglobin Anirudh Test Hemoglobin Carboxyhemoglobin O2 Delivery Device Vent Setting Inspired O2 Critical Value Sodium Potassium 3.6 Chloride Carbon Dioxide Anion Gap BUN Creatinine Estimated GFR Random Glucose Calcium Magnesium 2.3 Total Bilirubin AST ALT Alkaline Phosphatase Total Protein Albumin Urine Color Zuly Urine Clarity Hazy H Urine pH 5.0 Ur Specific [place] 1.033 Urine Protein Negative Urine Glucose (UA) Negative Urine Ketones Negative Urine Occult Blood Moderate H Urine Nitrate Negative Urine Bilirubin Negative Urine Urobilinogen 2.0 H Ur Leukocyte Esterase Negative Urine RBC 29 H Urine WBC 5 Urine Bacteria Occasional H Micro UA Comment Cath-culture ind Urine Culture Comments Cath-cult indicated Vancomycin Trough 10/07/17 10/07/17 10/07/17 03:25 04:34 05:12 WBC RBC Hgb Hct MCV MCH MCHC RDW Plt Count MPV Prelim Diff (Auto) Neut % (Auto) Lymph % (Auto) [place] % (Auto) Eos % (Auto) Baso % (Auto) Neut # (Auto) Lymph # (Auto) [place] # (Auto) Eos # (Auto) Baso # (Auto) WBC Differential Seg Neuts % (Manual) Band Neuts % (Manual) Lymphocytes % (Manual) Monocytes % (Manual) Eosinophils % (Manual) Metamyelocytes % (Man) Abs Neuts (Manual) Differential Comment Platelet Estimate Platelet Morphology Polychromasia Acanthocytes (Spur) Keratocytes Puncture Site Right radial Patient Temperature 98.6 O2 Saturation 92 ABG pH 7.46 H ABG pCO2 39 ABG pO2 75 ABG HCO3 27 H ABG O2 Content 13.9 ABG Base Excess 3.0 H ABG Methemoglobin 1.2 Anirudh Test Present Hemoglobin 10.7 L Carboxyhemoglobin 2.5 O2 Delivery Device Ventilator Vent Setting Prvc/ac Inspired O2 35 Critical Value No Sodium 142 Potassium 3.5 Chloride 107 Carbon Dioxide 29.6 Anion Gap 5 BUN 14 Creatinine 0.69 Estimated GFR Greater than 89 Random Glucose 102 Calcium 7.9 L Magnesium Total Bilirubin 1.3 H AST 69 H ALT 117 H Alkaline Phosphatase 112 Total Protein 5.8 L D Albumin 2.2 L Urine Color Urine Clarity Urine pH Ur Specific [place] Urine Protein Urine Glucose (UA) Urine Ketones Urine Occult Blood Urine Nitrate Urine Bilirubin Urine Urobilinogen Ur Leukocyte Esterase Urine RBC Urine WBC Urine Bacteria Micro UA Comment Urine Culture Comments Vancomycin Trough 13.2 H Microbiology 10/03/17 11:47 Blood - Peripheral Aerobic Blood Culture - Preliminary No growth in 3 days 10/03/17 11:47 Blood - Peripheral Anaerobic Blood Culture - Preliminary No growth in 3 days 10/03/17 11:40 Blood - Peripheral Aerobic Blood Culture - Preliminary No growth in 3 days 10/03/17 11:40 Blood - Peripheral Anaerobic Blood Culture - Preliminary No growth in 3 days 10/01/17 16:23 Blood - Peripheral Aerobic Blood Culture - Final No growth in 5 days 10/01/17 16:23 Blood - Peripheral Anaerobic Blood Culture - Final No growth in 5 days 10/01/17 16:18 Blood - Peripheral Aerobic Blood Culture - Final No growth in 5 days 10/01/17 16:18 Blood - Peripheral Anaerobic Blood Culture - Final No growth in 5 days - Imaging Impressions Ankle X-Ray 10/06/17 00:00 CONCLUSION: Distal tibial fracture. Chest X-Ray 10/07/17 06:00 CONCLUSION: 1. Abnormal opacity remains at the right lung base with blunting the costophrenic angle. 2. New discoid atelectasis in left perihilar region and left lung base. Assessment and Plan - Assessment and Plan Left femur fracture IM nail POD 8 Physical therapy for 50% weightbearing left lower extremity Daily dressing changes Ice to decrease swelling Bilateral scapular fractures Weightbearing as tolerated Right medial malleolus fracture surgery today with Dr Willams for ORIF of medial malleolus
[2017-10-07] MEDS: Chlorhexidine 0.12% Oral Kit 15 ML UDC OROPHARYNG SCH ×2 (07:39→20:13)
[2017-10-07] MEDS: Lisinopril 20 MG Tablet PO SCH ×2 (08:01→20:14)
[2017-10-07] MEDS: Calcium/Vitamin D 250/125 MG Tablet PO SCH ×3 (08:02→17:55)
[2017-10-07] MEDS: Senna/Docusate Sodium 8.6/50 MG Tablet PO SCH ×2 (08:03→20:14)
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
[2017-10-07] MEDS: Pantoprazole Inj 40 MG Vial IV.PUSH SCH (08:47)
[2017-10-07] MEDS: Potassium Chlor 40 mEq Premix 40 MEQ/100 ML PIGGYBACK IV.SIG PRN (08:47)
[2017-10-07] MEDS ORDERED: Bupivacaine/Epinephrine Inj 0.25% 50 ML Vial ONE (09:25)
[2017-10-07] MEDS ORDERED: Post-op Orders (for Pharmacy) OTHER STA (10:41)
--- NOTE | 2017-10-07 10:45 | P.OP ---
- Preoperative Diagnosis (1) Fracture of medial malleolus, right, closed Date of procedure: 10/07/17 Anesthesia: GETA Surgeon: Thomas Duque MD Distance Learning Coordinator: HALINA Singh PA-C The surgical procedure was assisted by my physician learning and development assistant. My P.A. presence was necessary throughout this case for the manipulation and positioning of the surgical extremity. My P.A. was assisting me throughout the duration of this procedure. The skill set of a physician learning and development assistant was medically necessary to complete this procedure. During the surgical case the rn neurosurgical was working at the back table and the physician learning and development assistant was directly assisting me. Operation and Findings: Implants used : ITS 4.0 cannulated screws Patient was seen and evaluated preoperatively and found to have a displaced right medial malleolus ankle fracture. Informed consent was obtained after a detailed discussion of risk and benefits of surgery with patient's family. The operative site was marked. Patient was brought to the OR, placed on the OR table, and given IV sedation and general endotracheal anesthesia. IV antibiotics were given preoperatively. A timeout procedure was performed. The operative leg was prepped with alcohol followed by Hibiclens and draped in the usual sterile fashion. Next attention was turned towards the medial malleolus. The medial malleolus supposed through a 3 cm incision. Saphenous vein was retracted. Fracture was visualized. Fracture was cleaned with curettes. Fracture was now reduced and keyed into anatomic alignment. K wires were used to hold provisional fixation. 2 guidepins for the 4.0 cannulated screws were placed in a retrograde fashion across the fracture. Fluoroscopy was used to confirm guidepin placement. Cannulated drill was placed over the guidepin. 2 appropriate length screws were now placed. Good compression was applied. Fluoroscopy confirmed well aligned fracture with well-placed hardware. The syndesmosis was stressed. There was no widening of the syndesmosis with external rotation of the ankle. Incisions were thoroughly irrigated. The subcutaneous tissue was closed with 3- 0 Vicryl and the skin was closed with 3-0 nylon. Sterile dressings were applied. A well molded well-padded splint was applied. The patient was transferred to Recovery in stable condition. Needle and sponge counts were correct.
[2017-10-07] MEDS ORDERED: fentaNYL Citrate Inj 100 MCG/2 ML Ampul ONE (11:22)
[2017-10-07] MEDS ORDERED: Phenylephrine/NS 1000 MCG/10ML Syringe IV.PUSH ONE (12:00)
--- NOTE | 2017-10-07 12:01 | XR ---
EXAM DATE: 10/07/2017 10:53 AM EDT AGE/SEX: 41 years / Male INDICATIONS: Post-op ORIF right ankle fracture. CLINICAL DATA: This is the patient's subsequent encounter. Patient reports that signs and symptoms h ave been present for 1 week and indicates a pain score of Nonresponsive. MEDICAL/SURGICAL HISTORY: Non-responsive. Non-responsive. COMPARISON: No prior exams available for comparison. FINDINGS: 5 spot intraoperative fluoroscopic views of the ankle demonstrate 2 screws traversing the medial mall eolus fracture with excellent alignment at the fracture site. CONCLUSION: ORIF right ankle fracture. Electronically signed by: Agustín Anna MD 10/07/2017 11:08 AM EDT
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
[2017-10-07] MEDS ORDERED: ASP: Other exception documentation: ( ) OTHER PRN (13:05)
[2017-10-07] MEDS ORDERED: Meropenem Inj 2,000 MG in Sodium Chlor 0.9% Inj 100 ML IV.SIG STA (13:38)
[2017-10-07] MEDS ORDERED: Propofol Inj 500 MG/50 ML Vial ONE (13:41)
--- NOTE | 2017-10-07 13:55 | XR ---
EXAM DATE: 10/07/2017 1:30 PM EDT AGE/SEX: 41 years / Male INDICATIONS: Right knee pain. CLINICAL DATA: This is the patient's initial encounter. Patient reports that signs and symptoms have been present for 1 week and indicates a pain score of Nonresponsive. MEDICAL/SURGICAL HISTORY: Non-responsive. Non-responsive. COMPARISON: No prior exams available for comparison. FINDINGS: Bony structures are intact and in normal alignment. Joints are intact without dislocation or signifi cant arthropathy. Osseous density is normal. Soft tissues are unremarkable. No radiopaque foreign bodies seen. CONCLUSION: Negative examination Electronically signed by: Agustín Anna MD 10/07/2017 1:54 PM EDT
[2017-10-07 14:06] LABS: ABG PCO2 32 mmHg (38-42); ABG PO2 63 mmHg (61-120)
--- NOTE | 2017-10-07 14:20 | XR ---
EXAM DATE: 10/07/2017 1:58 PM EDT AGE/SEX: 41 years / Male INDICATIONS: ET tube placement. CLINICAL DATA: This is the patient's subsequent encounter. Patient reports that signs and symptoms h ave been present for 1 day and indicates a pain score of Nonresponsive. MEDICAL/SURGICAL HISTORY: Non-responsive. Non-responsive. COMPARISON: [facility], CHEST 1V SINGLE AP, 10/07/2017. . FINDINGS: The cardiac silhouette is enlarged in transverse diameter. Support lines and tubes are in satisfactor y position. There is bilateral lower lobe atelectasis versus pneumonia. Moderate size bilateral pleur al effusions are identified. CONCLUSION: Satisfactory position of endotracheal tube as above. Electronically signed by: Nigel Gaines MD 10/07/2017 2:18 PM EDT
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
--- NOTE | 2017-10-07 15:49 | P.RAD ---
Post Procedure Progress Note - Procedure Information Procedure Date: 10/07/17 Supervising Radiologist: Kyaw Demarco MD Estimated blood loss (mL): 0 Anesthesia: Local - Plan of Activity Patient to Unit: Critical Care Patient Condition: Critical Additional Comments: IVC filter placed without difficulty. Filter in good position Full dictated report to follow See PACS Report for procedural detail/treatment.
[2017-10-07] MEDS: Propofol 1000 mg/100 ml Inj 1,000 MG/100 ML BOTTLE IV.CONT PRN ×2 (15:51→23:53)
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
[2017-10-07] MEDS ORDERED: Iohexol 350 MG/ML 50 ML Vial (for Rad Diag) IVCONTRAST ONE (16:14)
[2017-10-07] MEDS: Vancomycin Inj 1,750 MG in Sodium Chlor 0.9% Inj 500 ML IV.SIG SCH ×2 (16:15→20:14)
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
[2017-10-07] MEDS: Enoxaparin Inj 40 MG/0.4 ML Syringe SQ SCH (17:55)
[2017-10-08] MEDS: Hypromellose 0.3% Opth Gel 10 GM Bottle EACH EYE SCH ×4 (01:41→19:23)
[2017-10-08] MEDS: Metoprolol Inj 5 MG/5 ML Vial IV.PUSH SCH ×4 (02:13→19:23)
[2017-10-08] MEDS: QUEtiapine 25 MG Tablet PO SCH ×3 (02:14→18:00)
[2017-10-08] MEDS: Oral Hygiene Kit OROPHARYNG SCH ×4 (03:34→23:58)
[2017-10-08 04:38] LABS: Albumin 2.2 g/dL (3.4-5.0); Anion Gap 8 meq/L (5-15); Aspartate Aminotransferase 56 U/L (15-37); Blood Urea Nitrogen 17 mg/dL (7-18); Calcium 7.8 mg/dL (8.5-10.1); Carbon Dioxide 27.8 meq/L (21.0-32.0); Chloride 105 meq/L (98-107); Glomerular Filtration Rate Greater Than 89 mL/min (>89); Glucose,Random 107 mg/dL (74-106); Potassium 3.5 meq/L (3.5-5.1); Sodium 141 meq/L (136-145)
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
[2017-10-08 04:41] LABS: Alanine Aminotransferase 102 U/L (12-78); Alkaline Phosphatase 120 U/L (45-117)
[2017-10-08 04:43] LABS: Baso # (Auto) 0.1 th/mm3 (0.0-0.2); Baso % (Auto) 0.4 % (0.0-2.0); Eos # (Auto) 0.2 th/mm3 (0.0-0.4); Eos % (Auto) 1.1 % (0.0-4.0); Hematocrit 24.1 % (39.0-51.0); Lymph # (Auto) 1.7 th/mm3 (1.0-4.8); Lymph % (Auto) 8.7 % (9.0-44.0); Mean Corpuscular HGB Conc 33.1 % (32.0-36.0); Mean Corpuscular Hemoglobin 29.1 pg (27.0-34.0); Mean Corpuscular Volume 87.9 fL (80.0-100.0); Mean Platelet Volume 7.1 fL (7.0-11.0); Mono # (Auto) 1.2 th/mm3 (0.0-0.9); Mono % (Auto) 6.1 % (0.0-8.0); Neut # (Auto) 15.9 th/mm3 (1.8-7.7); Neut % (Auto) 83.7 % (16.0-70.0); Platelet Count 463 th/mm3 (150-450); Red Blood Count 2.75 mil/mm3 (4.50-5.90)
[2017-10-08] MEDS: Vancomycin Inj 1,750 MG in Sodium Chlor 0.9% Inj 500 ML IV.SIG SCH ×3 (05:00→20:19)
[2017-10-08 05:23] LABS: ABG Base Excess 3.6 mmol/L (-2-2); ABG PCO2 38 mmHg (38-42); ABG PO2 202 mmHg (61-120)
--- NOTE | 2017-10-08 07:32 | P.PNOP ---
Subjective Interval history: POd 1 s/p ORIF right medial malleolus s/p IMN left femur s/p bilateral scapula fxs intubated/sedated Physical Exam Vital signs: Vital Signs 10/07/17 08:00 10/07/17 08:37 10/07/17 09:45 Temperature 99.7 F H Pulse Rate 96 H Respiratory Rate 18 17 Blood Pressure 170/95 H Pulse Oximetry 100 100 100 10/07/17 11:17 10/07/17 11:38 10/07/17 12:00 Temperature 98.2 F Pulse Rate 90 100 H Respiratory Rate 12 12 13 Blood Pressure 178/84 H Pulse Oximetry 92 L 94 L 10/07/17 14:00 10/07/17 15:46 10/07/17 16:00 Temperature 100.2 F H 100.2 F H Pulse Rate 83 83 84 Respiratory Rate 12 12 Blood Pressure 146/65 H 146/65 H Pulse Oximetry 100 100 10/07/17 16:01 10/07/17 16:31 10/07/17 17:01 Temperature 100.2 F H 100.2 F H 100.4 F H Pulse Rate 99 H 95 H 102 H Respiratory Rate 12 12 13 Blood Pressure 146/65 H 146/65 H 160/77 H Pulse Oximetry 100 100 100 10/07/17 17:37 10/07/17 18:00 10/07/17 20:00 Temperature 100.5 F H Pulse Rate 91 H 119 H Respiratory Rate 12 17 Blood Pressure 119/54 L Pulse Oximetry 100 100 10/07/17 21:42 10/07/17 22:00 10/08/17 00:00 Temperature 100.1 F H Pulse Rate 87 104 H Respiratory Rate 12 14 Blood Pressure 111/51 L Pulse Oximetry 100 100 10/08/17 00:47 10/08/17 02:00 10/08/17 04:00 Temperature 100.0 F H Pulse Rate 86 82 Respiratory Rate 14 12 Blood Pressure 100/52 L Pulse Oximetry 100 100 10/08/17 04:14 10/08/17 06:00 Temperature Pulse Rate 75 Respiratory Rate 12 Blood Pressure Pulse Oximetry 100 Intake & Output 10/07/17 10/08/17 10/08/17 18:59 06:59 18:59 Intake Total 1265 / 1265 1720.0 / 1720.0 Output Total 2810 / 2810 550 / 550 Balance -1545 / -1545 1170.0 / 1170.0 Weight 80.7 kg Intake: IV 815 / 815 1385.0 / 1385.0 Diprivan 1000 mg/100 ml Inj 1, 100 / 100 000 mg In 100 ml @ 5 MCG/KG/MIN 2.46 mls/hr IV.CONT TITRATE PRN Rx#:[id number] Merrem Inj 2,000 MG In NS Inj 100 / 100 100 ML @ 200 mls/hr IV.SIG ONCE STA Rx#:[id number] Zosyn 4.5 GM Premix 4.5 gm In 100 / 100 100 ml @ 200 mls/hr IV.SIG Q6H SRIDEVI Rx#:[id number] KCl 40 mEq Premix Inj 40 meq In 100 / 100 100 ml @ 25 mls/hr IV.SIG UNSCH PRN Rx#:[id number] Vancomycin Inj 1,750 MG In NS 515 / 515 1035.0 / 1035.0 Inj 500 ML @ 250 mls/hr IV.SIG Q8H SRIDEVI Rx#:[id number] fentaNYL 10 mcg/mL Premix Drip 250 / 250 2,500 mcg In 250 ml @ 50 MCG/HR 5 mls/hr IV.SIG TITRATE PRN Rx #:[id number] Tube Feeding 215 / 215 Tube Irrigant 120 / 120 Anesthesia Amount 450 / 450 Output: Urine 2100 / 2100 Estimated Blood Loss 10 / 10 Urine Amount (Catheter) 700 / 700 550 / 550 Indwelling Temp Sensing 700 / 700 550 / 550 Catheter Other: Date of Last Bowel Movement 10/06/17 10/07/17 Narrative: LLE: dressings clean and dry. intact. +podus boot. good cap refill RLE: +short leg splint. intact. nvi - Urinary Catheter Management Indwelling Urethral Catheter Cath placed during this visit: yes Reason for continuing: Hourly intake/output Insertion date: 09/27/17 Insertion time: 12:10 Indwelling Temp Sensing Catheter Cath placed during this visit: yes Reason for continuing: Hourly intake/output Insertion date: 10/06/17 Insertion time: 15:00 Results - Labs CBC & Chem 7: 10/08/17 03:57 10/08/17 03:57 Laboratory Results - last 24 hr 10/07/17 10/08/17 10/08/17 13:40 03:57 03:57 WBC 19.0 H RBC 2.75 L Hgb 8.0 L Hct 24.1 L MCV 87.9 MCH 29.1 MCHC 33.1 RDW 19.0 H Plt Count 463 H MPV 7.1 Neut % (Auto) 83.7 H Lymph % (Auto) 8.7 L [place] % (Auto) 6.1 Eos % (Auto) 1.1 Baso % (Auto) 0.4 Neut # (Auto) 15.9 H Lymph # (Auto) 1.7 [place] # (Auto) 1.2 H Eos # (Auto) 0.2 Baso # (Auto) 0.1 WBC Differential . Differential Comment Auto diff final Puncture Site Left radial Patient Temperature 98.6 O2 Saturation 91 ABG pH 7.50 H ABG pCO2 32 L ABG pO2 63 ABG HCO3 25 ABG O2 Content 12.3 ABG Base Excess 2.0 ABG Methemoglobin 1.2 Anirudh Test Y Hemoglobin 9.6 L Carboxyhemoglobin 2.6 O2 Delivery Device Ventilator Vent Setting Prvcac/vt600/r12/p8 Inspired O2 60 Critical Value No Sodium 141 Potassium 3.5 Chloride 105 Carbon Dioxide 27.8 Anion Gap 8 BUN 17 Creatinine 0.66 Estimated GFR Greater than 89 Random Glucose 107 H Calcium 7.8 L Total Bilirubin 0.8 AST 56 H ALT 102 H Alkaline Phosphatase 120 H Total Protein 6.0 L Albumin 2.2 L 10/08/17 05:13 WBC RBC Hgb Hct MCV MCH MCHC RDW Plt Count MPV Neut % (Auto) Lymph % (Auto) [place] % (Auto) Eos % (Auto) Baso % (Auto) Neut # (Auto) Lymph # (Auto) [place] # (Auto) Eos # (Auto) Baso # (Auto) WBC Differential Differential Comment Puncture Site Right radial Patient Temperature 98.6 O2 Saturation 97 ABG pH 7.47 H ABG pCO2 38 ABG pO2 202 H ABG HCO3 27 H ABG O2 Content 14.4 ABG Base Excess 3.6 H ABG Methemoglobin 1.1 Anirudh Test Present Hemoglobin 10.3 L Carboxyhemoglobin 1.7 O2 Delivery Device Ventilator Vent Setting Prvc12/600/1.0/+8 Inspired O2 60 Critical Value No Sodium Potassium Chloride Carbon Dioxide Anion Gap BUN Creatinine Estimated GFR Random Glucose Calcium Total Bilirubin AST ALT Alkaline Phosphatase Total Protein Albumin Microbiology 10/06/17 14:30 Sputum - Endotracheal Gram Stain - Final 10/06/17 14:30 Sputum - Endotracheal Sputum Culture - Preliminary gram negative rods 10/06/17 14:30 Catheterized Urine Urine Culture - Preliminary No growth in 24 hours 10/03/17 11:47 Blood - Peripheral Aerobic Blood Culture - Preliminary No growth in 4 days 10/03/17 11:47 Blood - Peripheral Anaerobic Blood Culture - Preliminary No growth in 4 days 10/03/17 11:40 Blood - Peripheral Aerobic Blood Culture - Preliminary No growth in 4 days 10/03/17 11:40 Blood - Peripheral Anaerobic Blood Culture - Preliminary No growth in 4 days - Imaging Impressions Ankle X-Ray 10/07/17 00:00 CONCLUSION: ORIF right ankle fracture. Chest CTA 10/07/17 00:00 CONCLUSION: 1. Pneumonia with bilateral lower lobe atelectasis and bilateral pleural effusions, right greater than left. Complete consolidation and collapse of the right lower lobe is noted. 2. No evidence for pulmonary embolism. IVC Filter Placement X-Ray 10/07/17 00:00 CONCLUSION: 1. Uncomplicated inferior vena cava filter placement as above. Knee X-Ray 10/07/17 00:00 CONCLUSION: Negative examination Chest X-Ray 10/07/17 13:23 CONCLUSION: Satisfactory position of endotracheal tube as above. Chest X-Ray 10/08/17 06:00 CONCLUSION: 1. Hazy airspace opacity remains at the lung bases which appears mildly improved. There is no distinct effusion. 2. The patient remains intubated. Assessment and Plan - Assessment and Plan Left femur fracture IM nail POD 9 Physical therapy for 50% weightbearing left lower extremity Daily dressing changes Ice to decrease swelling Bilateral scapular fractures Weightbearing as tolerated Right medial malleolus fracture s/p ORIF - POD 1 splint at all times -elevate -NWB -ortho surgeries complete at this time
[2017-10-08] MEDS: Calcium/Vitamin D 250/125 MG Tablet PO SCH ×3 (08:02→18:00)
[2017-10-08] MEDS: Pantoprazole Inj 40 MG Vial IV.PUSH SCH (08:02)
[2017-10-08] MEDS: Lisinopril 20 MG Tablet PO SCH ×2 (08:02→20:19)
[2017-10-08] MEDS: Propofol 1000 mg/100 ml Inj 1,000 MG/100 ML BOTTLE IV.CONT PRN (08:03)
[2017-10-08] MEDS: Senna/Docusate Sodium 8.6/50 MG Tablet PO SCH ×2 (08:03→20:19)
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
[2017-10-08] MEDS: Chlorhexidine 0.12% Oral Kit 15 ML UDC OROPHARYNG SCH ×2 (10:36→19:23)
[2017-10-08] MEDS: Potassium Chlor 40 mEq Premix 40 MEQ/100 ML PIGGYBACK IV.SIG PRN (10:57)
[2017-10-08] MEDS ORDERED: Pharmacy Ordered Lab Info OTHER ONE (12:45)
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
[2017-10-08] MEDS: fentaNYL 10 mcg/mL Premix Drip 2,500 MCG/250 ML BAG IV.SIG PRN (13:08)
[2017-10-08] MEDS: Enoxaparin Inj 40 MG/0.4 ML Syringe SQ SCH (17:59)
[2017-10-09] MEDS: Hypromellose 0.3% Opth Gel 10 GM Bottle EACH EYE SCH ×4 (00:08→18:46)
[2017-10-09] MEDS: Metoprolol Inj 5 MG/5 ML Vial IV.PUSH SCH ×4 (01:46→20:38)
[2017-10-09] MEDS: QUEtiapine 25 MG Tablet PO SCH ×3 (02:18→18:23)
[2017-10-09] MEDS: Oral Hygiene Kit OROPHARYNG SCH ×4 (03:22→23:04)
[2017-10-09] MEDS: Propofol 1000 mg/100 ml Inj 1,000 MG/100 ML BOTTLE IV.CONT PRN (04:42)
[2017-10-09] MEDS ORDERED: Pharmacy Ordered Lab Info OTHER ONE (04:45)
[2017-10-09 04:51] LABS: Baso % (Auto) 0.2 % (0.0-2.0); Eos # (Auto) 0.5 th/mm3 (0.0-0.4); Eos % (Auto) 3.5 % (0.0-4.0); Hematocrit 24.8 % (39.0-51.0); Hemoglobin 8.3 gm/dL (13.0-17.0); Lymph # (Auto) 1.1 th/mm3 (1.0-4.8); Lymph % (Auto) 7.6 % (9.0-44.0); Mean Corpuscular HGB Conc 33.5 % (32.0-36.0); Mean Corpuscular Hemoglobin 29.3 pg (27.0-34.0); Mean Corpuscular Volume 87.5 fL (80.0-100.0); Mono % (Auto) 6.9 % (0.0-8.0); Neut # (Auto) 11.3 th/mm3 (1.8-7.7); Neut % (Auto) 81.8 % (16.0-70.0); Platelet Count 484 th/mm3 (150-450); Red Blood Count 2.83 mil/mm3 (4.50-5.90); Red Cell Distribution Width 19.6 % (11.6-17.2); White Blood Count 13.8 th/mm3 (4.0-11.0)
[2017-10-09 05:18] LABS: Albumin 2.2 g/dL (3.4-5.0); Anion Gap 7 meq/L (5-15); Aspartate Aminotransferase 84 U/L (15-37); Blood Urea Nitrogen 14 mg/dL (7-18); Calcium 7.9 mg/dL (8.5-10.1); Carbon Dioxide 29.2 meq/L (21.0-32.0); Chloride 103 meq/L (98-107); Glomerular Filtration Rate Greater Than 89 mL/min (>89); Glucose,Random 104 mg/dL (74-106); Potassium 3.9 meq/L (3.5-5.1); Sodium 139 meq/L (136-145)
[2017-10-09 05:22] LABS: Alanine Aminotransferase 100 U/L (12-78); Alkaline Phosphatase 166 U/L (45-117); Total Protein 6.2 g/dL (6.4-8.2); Vancomycin,Trough 18.5 mcg/mL (5.0-10.0)
[2017-10-09] MEDS: Vancomycin Inj 1,750 MG in Sodium Chlor 0.9% Inj 500 ML IV.SIG SCH ×3 (05:36→20:39)
[2017-10-09 06:06] LABS: ABG Base Excess 4.4 mmol/L (-2-2); ABG PCO2 42 mmHg (38-42); ABG PO2 90 mmHg (61-120)
[2017-10-09] MEDS: fentaNYL 10 mcg/mL Premix Drip 2,500 MCG/250 ML BAG IV.SIG PRN (06:22)
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
--- NOTE | 2017-10-09 06:51 | P.PNOP ---
Subjective Interval history: Stable with critical care. No new changes Physical Exam Vital signs: Vital Signs 10/08/17 08:00 10/08/17 08:19 10/08/17 10:00 Temperature 98.6 F Pulse Rate 76 70 Respiratory Rate 12 12 Blood Pressure 114/55 L Pulse Oximetry 100 100 10/08/17 10:53 10/08/17 12:00 10/08/17 14:00 Temperature 99.7 F H Pulse Rate 100 H 72 Respiratory Rate 13 12 Blood Pressure 146/61 H Pulse Oximetry 100 100 10/08/17 16:00 10/08/17 16:06 10/08/17 18:00 Temperature 99.7 F H Pulse Rate 72 75 Respiratory Rate 12 12 Blood Pressure 114/55 L Pulse Oximetry 100 100 10/08/17 20:00 10/08/17 20:12 10/08/17 22:00 Temperature 99.3 F Pulse Rate 77 82 Respiratory Rate 18 20 Blood Pressure 119/56 L Pulse Oximetry 100 100 10/09/17 00:00 10/09/17 00:02 10/09/17 02:00 Temperature 99.5 F Pulse Rate 77 116 H Respiratory Rate 13 12 Blood Pressure 124/57 L Pulse Oximetry 100 100 10/09/17 03:32 10/09/17 04:00 10/09/17 06:00 Temperature 99.5 F Pulse Rate 116 H 118 H Respiratory Rate 13 13 Blood Pressure 145/70 H Pulse Oximetry 100 100 Intake & Output 10/08/17 10/08/17 10/09/17 06:59 18:59 06:59 Intake Total 1720.0 / 1720.0 1837.5 / 1837.5 1297.5 / 1297.5 Output Total 550 / 550 1460 / 1460 1250 / 1250 Balance 1170.0 / 1170.0 377.5 / 377.5 47.5 / 47.5 Weight 80.7 kg 81.9 kg Intake: IV 1385.0 / 1385.0 867.5 / 867.5 717.5 / 717.5 Diprivan 1000 mg/100 ml Inj 1, 100 / 100 100 / 100 100 / 100 000 mg In 100 ml @ 5 MCG/KG/MIN 2.46 mls/hr IV.CONT TITRATE PRN Rx#:[id number] Vancomycin Inj 1,750 MG In NS 1035.0 / 1035.0 517.5 / 517.5 517.5 / 517.5 Inj 500 ML @ 250 mls/hr IV.SIG Q8H [facility] Rx#:[id number] fentaNYL 10 mcg/mL Premix Drip 250 / 250 250 / 250 100 / 100 2,500 mcg In 250 ml @ 50 MCG/HR 5 mls/hr IV.SIG TITRATE PRN Rx #:[id number] Tube Feeding 215 / 215 400 / 400 380 / 380 Tube Irrigant 120 / 120 120 / 120 200 / 200 Anesthesia Amount 450 / 450 Output: Urine 650 / 650 Estimated Blood Loss 10 / 10 Urine Amount (Catheter) 550 / 550 800 / 800 1250 / 1250 Indwelling Temp Sensing 550 / 550 800 / 800 1250 / 1250 Catheter Other: Date of Last Bowel Movement 10/07/17 10/07/17 10/07/17 # Bowel Movements 0 Narrative: Bilateral upper extremities in restraints. No laxity in humerus forearm or wrist. Intact distal pulses and capillary refills distally Right lower extremity: No laxity hip or knee. Short leg splint in place. Good capillary refills and distal perfusion Left lower extremity: Clean dry dressings intact. No laxity of knee or ankle noted. Intact distal pulses and capillary refills - Urinary Catheter Management Indwelling Urethral Catheter Cath placed during this visit: yes Reason for continuing: Hourly intake/output Insertion date: 09/27/17 Insertion time: 12:10 Indwelling Temp Sensing Catheter Cath placed during this visit: yes Reason for continuing: Hourly intake/output Insertion date: 10/06/17 Insertion time: 15:00 Results - Labs CBC & Chem 7: 10/09/17 04:40 10/09/17 04:40 Laboratory Results - last 24 hr 10/09/17 10/09/17 10/09/17 04:40 04:40 05:50 WBC 13.8 H RBC 2.83 L Hgb 8.3 L Hct 24.8 L MCV 87.5 MCH 29.3 MCHC 33.5 RDW 19.6 H Plt Count 484 H MPV 7.0 Neut % (Auto) 81.8 H Lymph % (Auto) 7.6 L Sibley % (Auto) 6.9 Eos % (Auto) 3.5 Baso % (Auto) 0.2 Neut # (Auto) 11.3 H Lymph # (Auto) 1.1 Sibley # (Auto) 1.0 H Eos # (Auto) 0.5 H Baso # (Auto) 0.0 WBC Differential . Differential Comment Auto diff final Puncture Site Right radial Patient Temperature 98.6 O2 Saturation 95 ABG pH 7.45 H ABG pCO2 42 ABG pO2 90 ABG HCO3 28 H ABG O2 Content 11.3 L ABG Base Excess 4.4 H ABG Methemoglobin 1.0 Anirudh Test Present Hemoglobin 8.4 L Carboxyhemoglobin 1.8 O2 Delivery Device Ventilator Vent Setting Prvc /av Inspired O2 50 Critical Value No Sodium 139 Potassium 3.9 Chloride 103 Carbon Dioxide 29.2 Anion Gap 7 BUN 14 Creatinine 0.65 Estimated GFR Greater than 89 Random Glucose 104 Calcium 7.9 L Total Bilirubin 0.8 AST 84 H ALT 100 H Alkaline Phosphatase 166 H Total Protein 6.2 L Albumin 2.2 L Vancomycin Trough 18.5 H Microbiology 10/06/17 14:30 Catheterized Urine Urine Culture - Final No growth in 48 hours 10/03/17 11:47 Blood - Peripheral Aerobic Blood Culture - Final No growth in 5 days 10/03/17 11:47 Blood - Peripheral Anaerobic Blood Culture - Final No growth in 5 days 10/03/17 11:40 Blood - Peripheral Aerobic Blood Culture - Final No growth in 5 days 10/03/17 11:40 Blood - Peripheral Anaerobic Blood Culture - Final No growth in 5 days 10/06/17 14:30 Sputum - Endotracheal Gram Stain - Final 10/06/17 14:30 Sputum - Endotracheal Sputum Culture - Preliminary gram negative rods - Imaging Impressions Chest X-Ray 10/09/17 06:00 CONCLUSION: Interval development of consolidation left lower lung. Assessment and Plan - Assessment and Plan Left femur fracture IM nail POD 10 (09/29) Physical therapy for 50% weightbearing left lower extremity Daily dressing changes Ice to decrease swelling Bilateral scapular fractures Weightbearing as tolerated Right medial malleolus fracture s/p ORIF - POD 2 (10/07) splint at all times -elevate -NWB -ortho surgeries complete at this time
[2017-10-09] MEDS: Calcium/Vitamin D 250/125 MG Tablet PO SCH ×3 (08:00→18:50)
[2017-10-09] MEDS: Senna/Docusate Sodium 8.6/50 MG Tablet PO SCH ×2 (08:00→20:39)
[2017-10-09] MEDS: Pantoprazole Inj 40 MG Vial IV.PUSH SCH (08:00)
[2017-10-09] MEDS: Lisinopril 20 MG Tablet PO SCH ×2 (08:01→20:37)
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
[2017-10-09] MEDS: Chlorhexidine 0.12% Oral Kit 15 ML UDC OROPHARYNG SCH ×2 (09:52→20:38)
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
[2017-10-09] MEDS: Enoxaparin Inj 40 MG/0.4 ML Syringe SQ SCH (20:39)
[2017-10-10] MEDS: Hypromellose 0.3% Opth Gel 10 GM Bottle EACH EYE SCH ×4 (00:43→20:31)
[2017-10-10] MEDS: QUEtiapine 25 MG Tablet PO SCH (02:11)
[2017-10-10] MEDS: Metoprolol Inj 5 MG/5 ML Vial IV.PUSH SCH ×4 (02:12→20:32)
[2017-10-10] MEDS: fentaNYL 10 mcg/mL Premix Drip 2,500 MCG/250 ML BAG IV.SIG PRN ×2 (02:14→20:09)
[2017-10-10] MEDS: Vancomycin Inj 1,750 MG in Sodium Chlor 0.9% Inj 500 ML IV.SIG SCH ×3 (04:05→20:52)
[2017-10-10] MEDS: Oral Hygiene Kit OROPHARYNG SCH ×3 (05:09→15:38)
[2017-10-10 05:33] LABS: Baso % (Auto) 0.2 % (0.0-2.0); Eos # (Auto) 0.4 th/mm3 (0.0-0.4); Eos % (Auto) 3.9 % (0.0-4.0); Hematocrit 26.7 % (39.0-51.0); Hemoglobin 8.9 gm/dL (13.0-17.0); Lymph % (Auto) 9.1 % (9.0-44.0); Mean Corpuscular HGB Conc 33.4 % (32.0-36.0); Mean Corpuscular Hemoglobin 29.3 pg (27.0-34.0); Mean Corpuscular Volume 87.8 fL (80.0-100.0); Mean Platelet Volume 7.5 fL (7.0-11.0); Mono # (Auto) 0.8 th/mm3 (0.0-0.9); Mono % (Auto) 7.4 % (0.0-8.0); Neut # (Auto) 8.5 th/mm3 (1.8-7.7); Neut % (Auto) 79.4 % (16.0-70.0); Platelet Count 485 th/mm3 (150-450); Red Blood Count 3.05 mil/mm3 (4.50-5.90); Red Cell Distribution Width 20.1 % (11.6-17.2); White Blood Count 10.8 th/mm3 (4.0-11.0)
[2017-10-10 05:55] LABS: Anion Gap 10 meq/L (5-15); Blood Urea Nitrogen 13 mg/dL (7-18); Calcium 8.1 mg/dL (8.5-10.1); Carbon Dioxide 27.2 meq/L (21.0-32.0); Chloride 101 meq/L (98-107); Glomerular Filtration Rate Greater Than 89 mL/min (>89); Glucose,Random 107 mg/dL (74-106); Sodium 138 meq/L (136-145)
[2017-10-10] MEDS: Propofol 1000 mg/100 ml Inj 1,000 MG/100 ML BOTTLE IV.CONT PRN ×2 (06:21→20:52)
[2017-10-10 09:12] LABS: Eosinophils 2 % (0-4); Lymphocytes 14 % (9-44); Monocytes 7 % (0-8); Myelocytes 1 % (0-0)
[2017-10-10 09:13] LABS: Ovalocytes 1+; Platelet Morphology Normal (Normal); Polychromasia 2.3 % (0.0-1.9)
[2017-10-10] MEDS: Chlorhexidine 0.12% Oral Kit 15 ML UDC OROPHARYNG SCH ×2 (10:14→20:32)
[2017-10-10] MEDS: Lisinopril 20 MG Tablet PO SCH ×2 (10:16→20:52)
[2017-10-10] MEDS: Senna/Docusate Sodium 8.6/50 MG Tablet PO SCH ×2 (10:16→20:51)
[2017-10-10] MEDS: Enoxaparin Inj 40 MG/0.4 ML Syringe SQ SCH ×2 (10:36→20:52)
[2017-10-10] MEDS: Calcium/Vitamin D 250/125 MG Tablet PO SCH ×3 (10:37→17:47)
[2017-10-10] MEDS: Amantadine Liq 100 MG/10 ML UDC PO SCH (12:00)
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
[2017-10-11] MEDS: Oral Hygiene Kit OROPHARYNG SCH ×4 (01:09→15:33)
[2017-10-11] MEDS: Hypromellose 0.3% Opth Gel 10 GM Bottle EACH EYE SCH ×4 (01:09→18:27)
[2017-10-11] MEDS: Metoprolol Inj 5 MG/5 ML Vial IV.PUSH SCH ×4 (01:15→20:40)
[2017-10-11] MEDS: Propofol 1000 mg/100 ml Inj 1,000 MG/100 ML BOTTLE IV.CONT PRN (04:09)
[2017-10-11] MEDS: Vancomycin Inj 1,750 MG in Sodium Chlor 0.9% Inj 500 ML IV.SIG SCH ×3 (04:11→20:41)
[2017-10-11 05:58] LABS: Baso % (Auto) 0.3 % (0.0-2.0); Eos # (Auto) 0.4 th/mm3 (0.0-0.4); Eos % (Auto) 4.4 % (0.0-4.0); Hematocrit 24.5 % (39.0-51.0); Hemoglobin 8.3 gm/dL (13.0-17.0); Lymph # (Auto) 1.2 th/mm3 (1.0-4.8); Lymph % (Auto) 12.1 % (9.0-44.0); Mean Corpuscular HGB Conc 33.8 % (32.0-36.0); Mean Corpuscular Hemoglobin 29.5 pg (27.0-34.0); Mean Corpuscular Volume 87.3 fL (80.0-100.0); Mean Platelet Volume 7.4 fL (7.0-11.0); Mono # (Auto) 0.9 th/mm3 (0.0-0.9); Mono % (Auto) 9.7 % (0.0-8.0); Neut # (Auto) 7.2 th/mm3 (1.8-7.7); Neut % (Auto) 73.5 % (16.0-70.0); Platelet Count 527 th/mm3 (150-450); Red Cell Distribution Width 19.1 % (11.6-17.2); White Blood Count 9.8 th/mm3 (4.0-11.0)
[2017-10-11 06:13] LABS: Anion Gap 9 meq/L (5-15); Blood Urea Nitrogen 12 mg/dL (7-18); Calcium 7.8 mg/dL (8.5-10.1); Chloride 100 meq/L (98-107); Glomerular Filtration Rate Greater Than 89 mL/min (>89); Glucose,Random 105 mg/dL (74-106); Potassium 3.9 meq/L (3.5-5.1); Sodium 138 meq/L (136-145)
[2017-10-11] MEDS: Calcium/Vitamin D 250/125 MG Tablet PO SCH ×3 (08:57→18:26)
[2017-10-11] MEDS: Enoxaparin Inj 40 MG/0.4 ML Syringe SQ SCH ×2 (08:57→20:39)
[2017-10-11] MEDS: Senna/Docusate Sodium 8.6/50 MG Tablet PO SCH ×2 (08:58→20:40)
[2017-10-11] MEDS: Amantadine Liq 100 MG/10 ML UDC PO SCH ×2 (09:00→11:52)
[2017-10-11] MEDS: Chlorhexidine 0.12% Oral Kit 15 ML UDC OROPHARYNG SCH ×2 (09:00→20:47)
[2017-10-11] MEDS: Lisinopril 20 MG Tablet PO SCH ×2 (09:01→20:40)
[2017-10-11] MEDS: Dexmedetomidine Inj 200 MCG in Sodium Chlor 0.9% Inj 48 ML IV.CONT PRN (11:24)
[2017-10-11] MEDS: Dexmedetomidine Inj 1,000 MCG in Sodium Chlor 0.9% Inj 240 ML IV.CONT PRN (12:35)
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
[2017-10-11] MEDS: Hyoscyamine Inj 0.5 MG/ML Ampul IV.PUSH PRN (21:17)
[2017-10-11] MEDS: fentaNYL Citrate Inj 100 MCG/2 ML Ampul IV.PUSH PRN (21:17)
[2017-10-12] MEDS: Oral Hygiene Kit OROPHARYNG SCH ×4 (00:30→17:08)
[2017-10-12] MEDS: Hypromellose 0.3% Opth Gel 10 GM Bottle EACH EYE SCH ×4 (00:30→18:04)
[2017-10-12] MEDS: Dexmedetomidine Inj 1,000 MCG in Sodium Chlor 0.9% Inj 240 ML IV.CONT PRN ×3 (01:03→22:05)
[2017-10-12] MEDS: Metoprolol Inj 5 MG/5 ML Vial IV.PUSH SCH ×4 (03:13→22:03)
[2017-10-12] MEDS: Vancomycin Inj 1,750 MG in Sodium Chlor 0.9% Inj 500 ML IV.SIG SCH ×3 (04:32→22:05)
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
[2017-10-12] MEDS ORDERED: Pharmacy Ordered Lab Info OTHER ONE (04:45)
[2017-10-12 05:23] LABS: Baso # (Auto) 0.1 th/mm3 (0.0-0.2); Baso % (Auto) 0.8 % (0.0-2.0); Eos # (Auto) 0.2 th/mm3 (0.0-0.4); Hematocrit 22.7 % (39.0-51.0); Hemoglobin 7.8 gm/dL (13.0-17.0); Lymph % (Auto) 9.1 % (9.0-44.0); Mean Corpuscular HGB Conc 34.2 % (32.0-36.0); Mean Corpuscular Volume 84.6 fL (80.0-100.0); Mean Platelet Volume 7.6 fL (7.0-11.0); Mono % (Auto) 9.3 % (0.0-8.0); Neut # (Auto) 8.9 th/mm3 (1.8-7.7); Neut % (Auto) 78.8 % (16.0-70.0); Platelet Count 523 th/mm3 (150-450); Red Blood Count 2.68 mil/mm3 (4.50-5.90); Red Cell Distribution Width 19.3 % (11.6-17.2); White Blood Count 11.3 th/mm3 (4.0-11.0)
[2017-10-12 05:42] LABS: Anion Gap 7 meq/L (5-15); Blood Urea Nitrogen 12 mg/dL (7-18); Calcium 7.9 mg/dL (8.5-10.1); Carbon Dioxide 27.9 meq/L (21.0-32.0); Chloride 103 meq/L (98-107); Glomerular Filtration Rate Greater Than 89 mL/min (>89); Glucose,Random 120 mg/dL (74-106); Potassium 3.6 meq/L (3.5-5.1); Sodium 138 meq/L (136-145)
[2017-10-12 05:43] LABS: Vancomycin,Trough 17.2 mcg/mL (5.0-10.0)
[2017-10-12 06:40] LABS: ABG Base Excess 3.4 mmol/L (-2-2); ABG PCO2 34 mmHg (38-42); ABG PO2 105 mmHg (61-120)
[2017-10-12] MEDS: Lisinopril 20 MG Tablet PO SCH ×2 (08:29→22:04)
[2017-10-12] MEDS: Enoxaparin Inj 40 MG/0.4 ML Syringe SQ SCH ×2 (08:30→22:03)
[2017-10-12] MEDS: Calcium/Vitamin D 250/125 MG Tablet PO SCH ×3 (08:30→17:08)
[2017-10-12] MEDS: Senna/Docusate Sodium 8.6/50 MG Tablet PO SCH ×2 (08:30→22:04)
[2017-10-12] MEDS: Chlorhexidine 0.12% Oral Kit 15 ML UDC OROPHARYNG SCH ×2 (08:31→22:03)
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
[2017-10-12] MEDS: Amantadine Liq 100 MG/10 ML UDC PO SCH ×2 (08:34→11:24)
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
[2017-10-12] MEDS: Hyoscyamine Inj 0.5 MG/ML Ampul IV.PUSH PRN ×2 (14:51→22:05)
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
[2017-10-13] MEDS: Oral Hygiene Kit OROPHARYNG SCH ×5 (01:23→23:59)
[2017-10-13] MEDS: Hypromellose 0.3% Opth Gel 10 GM Bottle EACH EYE SCH ×4 (01:24→18:43)
[2017-10-13] MEDS: Metoprolol Inj 5 MG/5 ML Vial IV.PUSH SCH ×4 (02:54→21:39)
[2017-10-13] MEDS: Vancomycin Inj 1,750 MG in Sodium Chlor 0.9% Inj 500 ML IV.SIG SCH ×3 (05:01→21:50)
[2017-10-13 05:04] LABS: Baso # (Auto) 0.1 th/mm3 (0.0-0.2); Baso % (Auto) 0.7 % (0.0-2.0); Eos # (Auto) 0.2 th/mm3 (0.0-0.4); Eos % (Auto) 1.9 % (0.0-4.0); Hematocrit 21.1 % (39.0-51.0); Hemoglobin 7.2 gm/dL (13.0-17.0); Lymph # (Auto) 0.8 th/mm3 (1.0-4.8); Lymph % (Auto) 7.1 % (9.0-44.0); Mean Corpuscular HGB Conc 34.2 % (32.0-36.0); Mean Corpuscular Hemoglobin 29.2 pg (27.0-34.0); Mean Corpuscular Volume 85.5 fL (80.0-100.0); Mean Platelet Volume 7.3 fL (7.0-11.0); Mono # (Auto) 1.1 th/mm3 (0.0-0.9); Mono % (Auto) 10.1 % (0.0-8.0); Neut % (Auto) 80.2 % (16.0-70.0); Platelet Count 481 th/mm3 (150-450); Red Blood Count 2.47 mil/mm3 (4.50-5.90); Red Cell Distribution Width 19.3 % (11.6-17.2); White Blood Count 11.2 th/mm3 (4.0-11.0)
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
[2017-10-13 05:23] LABS: Albumin 2.2 g/dL (3.4-5.0); Anion Gap 12 meq/L (5-15); Aspartate Aminotransferase 51 U/L (15-37); Blood Urea Nitrogen 15 mg/dL (7-18); Calcium 7.9 mg/dL (8.5-10.1); Carbon Dioxide 23.1 meq/L (21.0-32.0); Chloride 102 meq/L (98-107); Glomerular Filtration Rate Greater Than 89 mL/min (>89); Glucose,Random 131 mg/dL (74-106); Potassium 3.4 meq/L (3.5-5.1); Sodium 137 meq/L (136-145)
[2017-10-13 05:27] LABS: Alanine Aminotransferase 62 U/L (12-78); Alkaline Phosphatase 237 U/L (45-117); Total Protein 6.6 g/dL (6.4-8.2)
[2017-10-13] MEDS: Amantadine Liq 100 MG/10 ML UDC PO SCH ×2 (06:18→17:47)
[2017-10-13 06:25] LABS: ABG PCO2 34 mmHg (38-42); ABG PO2 85 mmHg (61-120)
[2017-10-13] MEDS: Dexmedetomidine Inj 1,000 MCG in Sodium Chlor 0.9% Inj 240 ML IV.CONT PRN (07:03)
--- NOTE | 2017-10-13 07:04 | P.PNOP ---
Subjective Interval history: Intubated and medically stable. Physical Exam Vital signs: Vital Signs 10/12/17 07:49 10/12/17 08:00 10/12/17 10:00 Temperature 100.9 F H Pulse Rate 104 H 99 H Respiratory Rate 16 18 Blood Pressure 115/56 L Pulse Oximetry 100 100 10/12/17 11:32 10/12/17 12:00 10/12/17 14:00 Temperature 100.4 F H Pulse Rate 78 106 H Respiratory Rate 25 H 20 Blood Pressure 141/65 H Pulse Oximetry 96 95 10/12/17 15:39 10/12/17 16:00 10/12/17 18:00 Temperature 100.8 F H Pulse Rate 98 H 87 Respiratory Rate 18 17 Blood Pressure 158/77 H Pulse Oximetry 100 99 10/12/17 20:00 10/12/17 20:44 10/12/17 22:00 Temperature 101.8 F H Pulse Rate 98 H 84 Respiratory Rate 27 H 17 Blood Pressure 133/67 Pulse Oximetry 100 99 10/13/17 00:00 10/13/17 00:27 10/13/17 04:00 Temperature 100.4 F H 100.2 F H Pulse Rate 88 78 Respiratory Rate 24 20 17 Blood Pressure 106/56 L 116/55 L Pulse Oximetry 98 100 10/13/17 04:34 10/13/17 06:00 Temperature Pulse Rate 59 L Respiratory Rate 16 Blood Pressure Pulse Oximetry 100 Intake & Output 10/12/17 10/13/17 10/13/17 18:59 06:59 18:59 Intake Total 1481.5 / 1481.5 1927.5 / 1927.5 Output Total 1600 / 1600 1300 / 1300 Balance -118.5 / -118.5 627.5 / 627.5 Weight 75.9 kg Intake: IV 1067.5 / 1067.5 767.5 / 767.5 Precedex Inj 1,000 MCG In NS 250 / 250 250 / 250 Inj 240 ML @ 0.2 MCG/KG/HR 4.64 mls/hr IV.CONT TITRATE PRN Rx# :[id number] Ofirmev Inj 1,000 mg In 100 ml 100 / 100 @ 400 mls/hr IV.SIG Q6H PRN Rx# :[id number] Maxipime Inj 2,000 MG In NS Inj 200 / 200 100 ML @ 200 mls/hr IV.SIG Q8H SRIDEVI Rx#:[id number] Vancomycin Inj 1,750 MG In NS 517.5 / 517.5 517.5 / 517.5 Inj 500 ML @ 250 mls/hr IV.SIG Q8H SRIDEVI Rx#:[id number] Tube Feeding 354 / 354 760 / 760 Tube Irrigant 60 / 60 400 / 400 Output: Urine 1300 / 1300 Stool 0 / 0 Urine Amount (Catheter) 1600 / 1600 Indwelling Temp Sensing 1600 / 1600 Catheter Other: Date of Last Bowel Movement 10/12/17 10/12/17 # Incontinent Bowel Movements 1 # Emeses 1 Narrative: Bilateral upper extremities in restraints. No laxity in humerus forearm or wrist. Intact distal pulses and capillary refills distally Right lower extremity: No laxity hip or knee. Short leg splint in place. Good capillary refills and distal perfusion Left lower extremity: Clean dry dressings intact. No laxity of knee or ankle noted. Intact distal pulses and capillary refills - Urinary Catheter Management Indwelling Urethral Catheter Cath placed during this visit: yes Reason for continuing: Hourly intake/output Insertion date: 09/27/17 Insertion time: 12:10 Indwelling Temp Sensing Catheter Cath placed during this visit: yes Reason for continuing: Hourly intake/output Insertion date: 10/06/17 Insertion time: 15:00 Results - Labs CBC & Chem 7: 10/13/17 04:36 10/13/17 04:36 Laboratory Results - last 24 hr 10/13/17 10/13/17 10/13/17 04:36 04:36 06:18 WBC 11.2 H RBC 2.47 L Hgb 7.2 L Hct 21.1 L MCV 85.5 MCH 29.2 MCHC 34.2 RDW 19.3 H Plt Count 481 H MPV 7.3 Neut % (Auto) 80.2 H Lymph % (Auto) 7.1 L Cassia % (Auto) 10.1 H Eos % (Auto) 1.9 Baso % (Auto) 0.7 Neut # (Auto) 9.0 H Lymph # (Auto) 0.8 L Cassia # (Auto) 1.1 H Eos # (Auto) 0.2 Baso # (Auto) 0.1 WBC Differential . Differential Comment Auto diff final Puncture Site Left radial Patient Temperature 98.6 O2 Saturation 95 ABG pH 7.48 H ABG pCO2 34 L ABG pO2 85 ABG HCO3 25 ABG O2 Content 11.6 L ABG Base Excess 2.0 ABG Methemoglobin 0.9 Anirudh Test Present Hemoglobin 8.6 L Carboxyhemoglobin 1.9 O2 Delivery Device Ventilator Vent Setting See comment Inspired O2 40 Critical Value No Sodium 137 Potassium 3.4 L Chloride 102 Carbon Dioxide 23.1 Anion Gap 12 BUN 15 Creatinine 0.64 Estimated GFR Greater than 89 Random Glucose 131 H Calcium 7.9 L Total Bilirubin 0.7 AST 51 H ALT 62 Alkaline Phosphatase 237 H Total Protein 6.6 Albumin 2.2 L - Imaging Impressions Chest X-Ray 10/13/17 06:00 CONCLUSION: Stable appearance of the chest. Assessment and Plan - Assessment and Plan Left femur fracture IM nail POD 14 (09/29) Physical therapy for 50% weightbearing left lower extremity Daily dressing changes -we will plan on removing pepe on Thursday Ice to decrease swelling Bilateral scapular fractures Weightbearing as tolerated Right medial malleolus fracture s/p ORIF - POD 6 (10/07) splint at all times -elevate -NWB -ortho surgeries complete at this time
--- NOTE | 2017-10-13 08:19 | XR ---
EXAM DATE: 10/13/2017 8:14 AM EDT AGE/SEX: 41 years / Male INDICATIONS: Evaluate fracture. CLINICAL DATA: This is the patient's subsequent encounter. Patient reports that signs and symptoms h ave been present for 2 weeks and indicates a pain score of Nonresponsive. MEDICAL/SURGICAL HISTORY: Non-responsive. Non-responsive. COMPARISON: 09/27/2017. FINDINGS: 2 views left femur obtained. There has been placement of a intramedullary agustín fixating proximal femor al shaft fracture which is minimally displaced. Cerclage wire noted proximally. 2 distal screws are s een. No hardware loosening. Soft tissues are intact. Postsurgical changes. CONCLUSION: Internal fixation of left femur fixating proximal shaft fracture. Electronically signed by: Luis Potter MD 10/13/2017 8:18 AM EDT
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
[2017-10-13] MEDS: Chlorhexidine 0.12% Oral Kit 15 ML UDC OROPHARYNG SCH ×2 (08:39→21:35)
[2017-10-13] MEDS: Calcium/Vitamin D 250/125 MG Tablet PO SCH ×3 (09:49→17:45)
[2017-10-13] MEDS: Enoxaparin Inj 40 MG/0.4 ML Syringe SQ SCH ×2 (09:49→21:36)
[2017-10-13] MEDS: Potassium Chloride 25 MEQ Effervescent Tablet PO PRN ×2 (11:05→23:59)
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
[2017-10-13] MEDS: Hyoscyamine Inj 0.5 MG/ML Ampul IV.PUSH PRN (17:44)
[2017-10-13] MEDS: Senna/Docusate Sodium 8.6/50 MG Tablet PO SCH ×2 (18:42→21:37)
[2017-10-13] MEDS: Lisinopril 10 MG Tablet PO SCH (21:37)
[2017-10-14] MEDS: Hypromellose 0.3% Opth Gel 10 GM Bottle EACH EYE SCH ×4 (00:01→18:24)
[2017-10-14] MEDS: Dexmedetomidine Inj 1,000 MCG in Sodium Chlor 0.9% Inj 240 ML IV.CONT PRN (02:02)
[2017-10-14] MEDS: Metoprolol Inj 5 MG/5 ML Vial IV.PUSH SCH ×4 (03:37→20:28)
[2017-10-14] MEDS: Oral Hygiene Kit OROPHARYNG SCH ×3 (03:37→16:03)
[2017-10-14 03:55] LABS: Baso # (Auto) 0.1 th/mm3 (0.0-0.2); Baso % (Auto) 0.6 % (0.0-2.0); Eos # (Auto) 0.3 th/mm3 (0.0-0.4); Eos % (Auto) 2.9 % (0.0-4.0); Hematocrit 22.9 % (39.0-51.0); Hemoglobin 7.8 gm/dL (13.0-17.0); Lymph # (Auto) 0.8 th/mm3 (1.0-4.8); Lymph % (Auto) 8.1 % (9.0-44.0); Mean Corpuscular HGB Conc 33.8 % (32.0-36.0); Mean Corpuscular Hemoglobin 29.5 pg (27.0-34.0); Mean Corpuscular Volume 87.2 fL (80.0-100.0); Mean Platelet Volume 7.5 fL (7.0-11.0); Mono # (Auto) 0.8 th/mm3 (0.0-0.9); Mono % (Auto) 8.1 % (0.0-8.0); Neut # (Auto) 8.2 th/mm3 (1.8-7.7); Neut % (Auto) 80.3 % (16.0-70.0); Platelet Count 546 th/mm3 (150-450); Red Blood Count 2.63 mil/mm3 (4.50-5.90); Red Cell Distribution Width 18.9 % (11.6-17.2); White Blood Count 10.2 th/mm3 (4.0-11.0)
[2017-10-14 04:13] LABS: Albumin 2.4 g/dL (3.4-5.0); Anion Gap 11 meq/L (5-15); Aspartate Aminotransferase 44 U/L (15-37); Blood Urea Nitrogen 12 mg/dL (7-18); Calcium 8.1 mg/dL (8.5-10.1); Carbon Dioxide 25.5 meq/L (21.0-32.0); Chloride 105 meq/L (98-107); Glomerular Filtration Rate Greater Than 89 mL/min (>89); Glucose,Random 102 mg/dL (74-106); Potassium 3.8 meq/L (3.5-5.1); Sodium 141 meq/L (136-145)
[2017-10-14 04:14] LABS: Alanine Aminotransferase 65 U/L (12-78)
[2017-10-14 04:16] LABS: Alkaline Phosphatase 263 U/L (45-117); Total Protein 7.1 g/dL (6.4-8.2)
[2017-10-14] MEDS: Vancomycin Inj 1,750 MG in Sodium Chlor 0.9% Inj 500 ML IV.SIG SCH ×3 (05:13→20:31)
[2017-10-14 06:02] LABS: ABG Base Excess 2.6 mmol/L (-2-2); ABG PCO2 32 mmHg (38-42); ABG PO2 72 mmHg (61-120)
--- NOTE | 2017-10-14 06:31 | XR ---
EXAM DATE: 10/14/2017 6:28 AM EDT AGE/SEX: 41 years / Male INDICATIONS: Shortness of breath. CLINICAL DATA: This is the patient's subsequent encounter. Patient reports that signs and symptoms h ave been present for 2 weeks and indicates a pain score of Nonresponsive. MEDICAL/SURGICAL HISTORY: Non-responsive. Non-responsive. COMPARISON: [facility] [place], CHEST 1V SINGLE AP, 10/13/2017. . FINDINGS: Left lower lobe consolidation. Right lung is clear. Endotracheal tube and enteric tube are noted. Oss eous structures are intact. CONCLUSION: Left lower lobe airspace disease. Electronically signed by: Agustín Anna MD 10/14/2017 6:30 AM EDT
--- NOTE | 2017-10-14 07:21 | P.PNOP ---
Subjective Interval history: POD 15 s/p IMN left femur POD 7 s/p ORIF right ankle s/p Bilateral scapula fx eyes open. intubated Physical Exam Vital signs: Vital Signs 10/13/17 08:00 10/13/17 10:00 10/13/17 10:26 Temperature 100.2 F H Pulse Rate 62 97 H Respiratory Rate 27 H Blood Pressure 101/56 L Pulse Oximetry 93 L 98 10/13/17 12:00 10/13/17 13:37 10/13/17 14:00 Temperature 100.4 F H Pulse Rate 100 H 105 H Respiratory Rate 20 21 Blood Pressure 154/79 H Pulse Oximetry 99 10/13/17 16:00 10/13/17 16:35 10/13/17 18:00 Temperature 102.4 F H Pulse Rate 105 H 62 Respiratory Rate 18 20 Blood Pressure Pulse Oximetry 99 10/13/17 20:00 10/13/17 20:52 10/13/17 22:00 Temperature 98.4 F Pulse Rate 99 H 92 H Respiratory Rate 25 H 24 Blood Pressure 135/67 Pulse Oximetry 100 97 10/13/17 23:47 10/14/17 00:00 10/14/17 02:00 Temperature 100.5 F H Pulse Rate 74 102 H Respiratory Rate 14 16 Blood Pressure 115/62 Pulse Oximetry 100 100 10/14/17 04:00 10/14/17 04:21 10/14/17 06:00 Temperature 99.3 F Pulse Rate 82 70 Respiratory Rate 20 Blood Pressure 123/58 L Pulse Oximetry 99 100 Intake & Output 10/13/17 10/14/17 10/14/17 18:59 06:59 18:59 Intake Total 1737.5 / 1737.5 1024.5 / 1024.5 Output Total 1999 2300 / 2300 Balance -262.5 / -262.5 -1275.5 / -1275.5 Weight 79.4 kg Intake: IV 1667.5 / 1667.5 717.5 / 717.5 Precedex Inj 1,000 MCG In NS 500 / 500 Inj 240 ML @ 0.2 MCG/KG/HR 4.64 mls/hr IV.CONT TITRATE PRN Rx# :[id number] Maxipime Inj 2,000 MG In NS Inj 100 / 100 200 / 200 100 ML @ 200 mls/hr IV.SIG Q8H [facility] Rx#:[id number] Vancomycin Inj 1,750 MG In NS 1067.5 / 1067.5 517.5 / 517.5 Inj 500 ML @ 250 mls/hr IV.SIG Q8H [facility] Rx#:[id number] Tube Feeding 70 / 70 307 / 307 Output: Urine 1999 / 1999 Urine Amount (Catheter) 2300 / 2300 Indwelling Temp Sensing 2300 / 2300 Catheter Other: Date of Last Bowel Movement 10/12/17 10/14/17 # Incontinent Bowel Movements 2 Narrative: LLE: incisions clean and dry. intact. healed well RLE: +short leg splint. intact. BUE: +restraints. nvi - Urinary Catheter Management Indwelling Urethral Catheter Cath placed during this visit: yes Reason for continuing: Hourly intake/output Insertion date: 09/27/17 Insertion time: 12:10 Indwelling Temp Sensing Catheter Cath placed during this visit: yes Reason for continuing: Hourly intake/output Insertion date: 10/06/17 Insertion time: 15:00 Results - Labs CBC & Chem 7: 10/14/17 03:40 10/14/17 03:40 Laboratory Results - last 24 hr 10/14/17 10/14/17 10/14/17 03:40 03:40 05:54 WBC 10.2 RBC 2.63 L Hgb 7.8 L Hct 22.9 L MCV 87.2 MCH 29.5 MCHC 33.8 RDW 18.9 H Plt Count 546 H MPV 7.5 Prelim Diff (Auto) Slide review pending Neut % (Auto) 80.3 H Lymph % (Auto) 8.1 L [place] % (Auto) 8.1 H Eos % (Auto) 2.9 Baso % (Auto) 0.6 Neut # (Auto) 8.2 H Lymph # (Auto) 0.8 L [place] # (Auto) 0.8 Eos # (Auto) 0.3 Baso # (Auto) 0.1 WBC Differential . Diff Scan Auto diff confirmed Differential Comment . Puncture Site Right radial Patient Temperature 98.6 O2 Saturation 93 ABG pH 7.51 H* ABG pCO2 32 L ABG pO2 72 ABG HCO3 26 ABG O2 Content 9.2 L ABG Base Excess 2.6 H ABG Methemoglobin 0.6 Anirudh Test Present Hemoglobin 6.9 L* Carboxyhemoglobin 2.1 O2 Delivery Device Ventilator Vent Setting See comment Inspired O2 30 Critical Value Yes Sodium 141 Potassium 3.8 Chloride 105 Carbon Dioxide 25.5 Anion Gap 11 BUN 12 Creatinine 0.50 L Estimated GFR Greater than 89 Random Glucose 102 Calcium 8.1 L Total Bilirubin 0.8 AST 44 H ALT 65 Alkaline Phosphatase 263 H Total Protein 7.1 Albumin 2.4 L Microbiology 10/12/17 13:00 Sputum - Endotracheal Gram Stain - Final 10/12/17 13:00 Sputum - Endotracheal Sputum Culture - Preliminary gram negative rods 10/12/17 15:40 Catheterized Urine Urine Culture - Preliminary No growth in 24 hours 10/12/17 12:40 Blood - Other Aerobic Blood Culture - Preliminary No growth in 1 day 10/12/17 12:40 Blood - Other Anaerobic Blood Culture - Preliminary No growth in 1 day 10/12/17 12:44 Blood - Other Aerobic Blood Culture - Preliminary No growth in 1 day 10/12/17 12:44 Blood - Other Anaerobic Blood Culture - Preliminary No growth in 1 day - Imaging Impressions Femur X-Ray 10/13/17 00:00 CONCLUSION: Internal fixation of left femur fixating proximal shaft fracture. Chest X-Ray 10/14/17 06:00 CONCLUSION: Left lower lobe airspace disease. Assessment and Plan - Assessment and Plan Left femur fracture IM nail POD 15 (09/29) Physical therapy for 50% weightbearing left lower extremity Daily dressing changes -DC pepe today. Ice to decrease swelling Bilateral scapular fractures Weightbearing as tolerated Right medial malleolus fracture s/p ORIF - POD 7 (10/07) splint at all times -elevate -NWB -ortho surgeries complete at this time
[2017-10-14] MEDS: Enoxaparin Inj 40 MG/0.4 ML Syringe SQ SCH ×2 (08:13→20:30)
[2017-10-14] MEDS: Chlorhexidine 0.12% Oral Kit 15 ML UDC OROPHARYNG SCH ×2 (08:14→20:28)
[2017-10-14] MEDS: Senna/Docusate Sodium 8.6/50 MG Tablet PO SCH ×2 (08:15→20:31)
[2017-10-14] MEDS: Calcium/Vitamin D 250/125 MG Tablet PO SCH ×3 (08:15→18:24)
[2017-10-14] MEDS: Amantadine Liq 100 MG/10 ML UDC PO SCH ×2 (08:16→15:59)
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
[2017-10-14] MEDS ORDERED: Sodium Chlor 0.9% Inj 250 ML IV.SIG SCH (10:00)
[2017-10-14] MEDS ORDERED: Propofol Inj 500 MG/50 ML Vial ONE (10:41)
[2017-10-14] MEDS ORDERED: Midazolam Inj 5 MG/ML 1 ML Vial ONE (10:42)
--- NOTE | 2017-10-14 11:14 | P.PCN ---
Date of procedure: 10/14/17 Pre-op diagnosis: Acute respiratory failure Post-op diagnosis: same Procedure: Procedure: Diagnostic and Therapeutic flexible fiberoptic bronchoscopy Operation:Time out performed and suitable patient identification accomplished. The patient is orotracheally intubated and on controlled rate mechanical ventilation. ICU invasive monitoring are in place. Sedation administered by the operative team, see separate tracheostomy note. The flexible bronchoscope was delivered through a sealed side-port in the ventilator circuit near the endotracheal tube. The tracheobronchial tree was inspected and found to be clear, normal in appearance without edema or inflammation. The branching pattern is anatomically normal. At this point the endotracheal tube and bronchoscope were withdrawn to the level of the cricoid cartilage. This location was used to visualize the percutaneous tracheostomy procedure performed by Dr. Brambila. Following the insertion of the percutaneous tracheostomy tube the bronchoscope was immediately delivered through the new tracheostomy tube and confirmed position in the mid trachea safely above the clarissa, small amount of blood was suctioned out. Inner cannula was placed and mechanical ventilation was once again accomplished with good return of mechanical breath volumes. Bilateral breath sounds were auscultated. Oxygen saturation remained greater than 95% throughout the procedure. Surgeon: Teagan Nobles Estimated blood loss (mL): 0 Pathology: none sent Condition: critical Disposition: ICU
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
[2017-10-14] MEDS: Lisinopril 10 MG Tablet PO SCH ×2 (11:52→20:31)
[2017-10-14] MEDS ORDERED: Sod Chloride 0.9% Inj 1,000 ML IV.SIG ONE (12:00)
[2017-10-14] MEDS ORDERED: Glycopyrrolate Inj 1 MG/5 ML Syringe IV.PUSH ONE (12:00)
--- NOTE | 2017-10-14 17:54 | GIPROC ---
[facility] [address] [facility]. [facility], [id number] EGD WITH PEG PROCEDURE REPORT EXAM DATE: 10/14/2017 PATIENT NAME: Elvis Carvalho MR#: [id number] BIRTHDATE: 1975 ATTENDING: Rosa Maria Jordan MD ORDER #: [id number] COMMUNITY OUTREACH COORDINATOR: Nancie Uribe and Yoly Choi STATUS: inpatient INDICATIONS: The patient is a 41 yr old male here for an EGD with PEG due to dysphagia PROCEDURE PERFORMED: EGD with PEG placement MEDICATIONS: None and Per Anesthesia. TOPICAL ANESTHETIC: CONSENT: The patient understands the risks and benefits of the procedure and understands that these risks include, but are not limited to: sedation, allergic reaction, infection, perforation and/or bleeding. Alternative means of evaluation and treatment include, among others: physical exam, x-rays, and/or surgical intervention. The patient elects to proceed with this endoscopic procedure. medical equipment was checked for proper function. Hand hygiene and appropriate measures for infection prevention was taken. After the risks, benefits and alternatives of the procedure were thoroughly explained, Informed consent was verified, confirmed and timeout was successfully executed by the treatment team. The patient was anesthetized with topical anesthesia and the Pentax [id number] endoscope was introduced through the mouth and advanced to the second portion of the duodenum. The instrument was slowly withdrawn as the mucosa was fully examined. The stomach was then inflated with air, and by a combination of transillumination and manual palpation, the site for the gastrostomy tube placement was selected and marked on the anterior abdominal wall. The skin of the anterior abdomen was surgically prepped and draped with sterile towels. Utilizing strict sterile technique, the selected site was then anesthetized with 1% xylocaine by injection into the skin and subcutaneous tissue. A 1 cm incision was made through the skin and subcutaneous tissue, and the needle/cannula assembly was then passed through the abdominal wall and through the anterior wall of the stomach, maintaining visualization with the endoscope. A snare device previously placed through the instrument channel was then opened and placed around the cannula, the needle was removed, and the insertion wire was passed through the cannula and into the stomach lumen. The snare was then loosened from the cannula, and repositioned to snare the insertion wire. At this moment snare wire broke , first peg site was lost, an new incision in abdominal wall followed by same steps afterwards was initiated . The snare was then pulled up to the endoscope distal tip, and the scope was then withdrawn bringing with it the snare and insertion wire. The insertion wire was then released from the snare, and then loop-attached to the gastrostomy tube. Using the "pull technique", the G-tube was then pulled into place by traction on the insertion wire at the abdominal wall end. The G-tube insertion site was then cleansed once again, and the external bolster was placed over the tube to secure it to the abdominal wall. A sterile dressing was then applied, and the procedure terminated. a hiatal hernia The gastroscope was then slowly withdrawn and removed. ADVERSE EVENT: The snare from kit broke during procedure, a new site was initiated , a second snare was used -kit number in the chart IMPRESSIONS: s/p peg placement RECOMMENDATIONS: s ok to use peg for medications today start TF in am if site ok abdominal binder REPEAT EXAM: PRN Rosa Maria Jordan MD eSigned: Rosa Maria Jordan MD 10/14/2017 5:54 PM cc: PATIENT NAME: Elvis Carvalho MR#: [id number]
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
[2017-10-14 19:34] LABS: Hematocrit 22.5 % (39.0-51.0); Hemoglobin 7.8 gm/dL (13.0-17.0)
[2017-10-15] MEDS: Oral Hygiene Kit OROPHARYNG SCH ×5 (00:49→23:56)
[2017-10-15] MEDS: Hypromellose 0.3% Opth Gel 10 GM Bottle EACH EYE SCH ×4 (00:49→18:13)
[2017-10-15] MEDS: Metoprolol Inj 5 MG/5 ML Vial IV.PUSH SCH ×4 (03:50→20:42)
[2017-10-15 04:44] LABS: Baso % (Auto) 0.4 % (0.0-2.0); Eos # (Auto) 0.2 th/mm3 (0.0-0.4); Eos % (Auto) 2.2 % (0.0-4.0); Hematocrit 26.1 % (39.0-51.0); Lymph % (Auto) 9.6 % (9.0-44.0); Mean Corpuscular HGB Conc 34.7 % (32.0-36.0); Mean Corpuscular Hemoglobin 28.8 pg (27.0-34.0); Mono # (Auto) 1.1 th/mm3 (0.0-0.9); Neut # (Auto) 7.8 th/mm3 (1.8-7.7); Neut % (Auto) 76.8 % (16.0-70.0); Platelet Count 465 th/mm3 (150-450); Red Blood Count 3.14 mil/mm3 (4.50-5.90); Red Cell Distribution Width 20.5 % (11.6-17.2); White Blood Count 10.1 th/mm3 (4.0-11.0)
[2017-10-15 05:02] LABS: Albumin 2.4 g/dL (3.4-5.0); Anion Gap 11 meq/L (5-15); Aspartate Aminotransferase 40 U/L (15-37); Blood Urea Nitrogen 11 mg/dL (7-18); Calcium 8.1 mg/dL (8.5-10.1); Carbon Dioxide 25.1 meq/L (21.0-32.0); Chloride 102 meq/L (98-107); Glomerular Filtration Rate Greater Than 89 mL/min (>89); Glucose,Random 92 mg/dL (74-106); Potassium 3.4 meq/L (3.5-5.1); Sodium 138 meq/L (136-145)
[2017-10-15 05:03] LABS: Alanine Aminotransferase 59 U/L (12-78)
[2017-10-15 05:05] LABS: Alkaline Phosphatase 259 U/L (45-117); Total Protein 7.2 g/dL (6.4-8.2)
[2017-10-15] MEDS: Vancomycin Inj 1,750 MG in Sodium Chlor 0.9% Inj 500 ML IV.SIG SCH ×3 (05:16→20:48)
[2017-10-15] MEDS: Dexmedetomidine Inj 1,000 MCG in Sodium Chlor 0.9% Inj 240 ML IV.CONT PRN (05:19)
--- NOTE | 2017-10-15 05:23 | XR ---
EXAM DATE: 10/15/2017 4:54 AM EDT AGE/SEX: 41 years / Male INDICATIONS: Shortness of breath CLINICAL DATA: This is the patient's subsequent encounter. Patient reports that signs and symptoms h ave been present for 2 weeks and indicates a pain score of Nonresponsive. MEDICAL/SURGICAL HISTORY: Non-responsive. Non-responsive. COMPARISON: [facility] [place], CHEST 1V SINGLE AP, 10/14/2017. . FINDINGS: There is a tracheostomy tube noted. Consolidation in the left lower lobe is noted with retrocardiac o pacification. Small left effusion. CONCLUSION: Stable appearance of the chest. Electronically signed by: Agustín Anna MD 10/15/2017 5:22 AM EDT
[2017-10-15] MEDS: Amantadine Liq 100 MG/10 ML UDC PO SCH (06:36)
[2017-10-15] MEDS: Potassium Chloride 25 MEQ Effervescent Tablet PO PRN ×2 (07:28→18:18)
[2017-10-15] MEDS: Chlorhexidine 0.12% Oral Kit 15 ML UDC OROPHARYNG SCH ×2 (07:32→20:43)
[2017-10-15 08:05] LABS: ABG Base Excess 2.8 mmol/L (-2-2); ABG PCO2 34 mmHg (38-42); ABG PO2 71 mmHg (61-120)
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
[2017-10-15] MEDS: Lisinopril 10 MG Tablet PO SCH (08:29)
[2017-10-15] MEDS: Enoxaparin Inj 40 MG/0.4 ML Syringe SQ SCH (08:30)
[2017-10-15] MEDS: Calcium/Vitamin D 250/125 MG Tablet PO SCH ×3 (08:30→17:34)
[2017-10-15] MEDS: Senna/Docusate Sodium 8.6/50 MG Tablet PO SCH ×2 (08:30→20:47)
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
[2017-10-15] MEDS: Enoxaparin Inj 30 MG/0.3 ML Syringe SQ SCH (20:47)
[2017-10-15] MEDS: Lisinopril 20 MG Tablet PO SCH (20:51)
[2017-10-16] MEDS: Hypromellose 0.3% Opth Gel 10 GM Bottle EACH EYE SCH ×4 (01:17→18:15)
[2017-10-16] MEDS: Metoprolol Inj 5 MG/5 ML Vial IV.PUSH SCH ×4 (02:49→21:00)
[2017-10-16 04:04] LABS: Baso # (Auto) 0.1 th/mm3 (0.0-0.2); Baso % (Auto) 0.6 % (0.0-2.0); Eos # (Auto) 0.3 th/mm3 (0.0-0.4); Eos % (Auto) 2.4 % (0.0-4.0); Hematocrit 28.9 % (39.0-51.0); Hemoglobin 9.9 gm/dL (13.0-17.0); Lymph % (Auto) 7.6 % (9.0-44.0); Mean Corpuscular HGB Conc 34.3 % (32.0-36.0); Mean Corpuscular Hemoglobin 28.4 pg (27.0-34.0); Mean Corpuscular Volume 82.9 fL (80.0-100.0); Mean Platelet Volume 7.9 fL (7.0-11.0); Mono # (Auto) 1.3 th/mm3 (0.0-0.9); Mono % (Auto) 10.1 % (0.0-8.0); Neut # (Auto) 10.5 th/mm3 (1.8-7.7); Neut % (Auto) 79.3 % (16.0-70.0); Platelet Count 544 th/mm3 (150-450); Red Blood Count 3.48 mil/mm3 (4.50-5.90); White Blood Count 13.3 th/mm3 (4.0-11.0)
[2017-10-16] MEDS: Vancomycin Inj 1,750 MG in Sodium Chlor 0.9% Inj 500 ML IV.SIG SCH ×3 (04:14→21:23)
[2017-10-16] MEDS: Oral Hygiene Kit OROPHARYNG SCH ×3 (04:15→17:16)
[2017-10-16 04:17] LABS: Anion Gap 6 meq/L (5-15); Blood Urea Nitrogen 13 mg/dL (7-18); Calcium 8.5 mg/dL (8.5-10.1); Chloride 102 meq/L (98-107); Glomerular Filtration Rate Greater Than 89 mL/min (>89); Glucose,Random 100 mg/dL (74-106); Magnesium 2.5 mg/dL (1.5-2.5); Phosphorus 3.1 mg/dL (2.5-4.9); Potassium 3.7 meq/L (3.5-5.1); Sodium 139 meq/L (136-145)
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
[2017-10-16] MEDS: Enoxaparin Inj 30 MG/0.3 ML Syringe SQ SCH ×2 (08:17→21:03)
[2017-10-16] MEDS: Calcium/Vitamin D 250/125 MG Tablet PO SCH ×3 (08:18→17:14)
[2017-10-16] MEDS: Chlorhexidine 0.12% Oral Kit 15 ML UDC OROPHARYNG SCH ×2 (08:18→21:04)
[2017-10-16] MEDS: Lisinopril 20 MG Tablet PO SCH ×2 (08:18→20:59)
[2017-10-16] MEDS: Senna/Docusate Sodium 8.6/50 MG Tablet PO SCH ×2 (08:18→21:05)
[2017-10-16] MEDS: Hyoscyamine Inj 0.5 MG/ML Ampul IV.PUSH PRN ×3 (09:08→22:38)
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
[2017-10-16] MEDS ORDERED: levoFLOXacin 750 MG Tablet PO SCH (13:00)
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
[2017-10-16] MEDS: fentaNYL Citrate Inj 100 MCG/2 ML Ampul IV.PUSH PRN (21:00)
[2017-10-17] MEDS: Oral Hygiene Kit OROPHARYNG SCH ×2 (00:11→03:25)
[2017-10-17] MEDS: fentaNYL Citrate Inj 100 MCG/2 ML Ampul IV.PUSH PRN ×4 (00:15→09:19)
[2017-10-17] MEDS: Hypromellose 0.3% Opth Gel 10 GM Bottle EACH EYE SCH ×2 (00:17→06:36)
[2017-10-17] MEDS: Metoprolol Inj 5 MG/5 ML Vial IV.PUSH SCH ×2 (01:22→09:19)
[2017-10-17] MEDS ORDERED: Pharmacy Ordered Lab Info OTHER ONE ×2 (04:45→20:45)
[2017-10-17] MEDS: Vancomycin Inj 1,750 MG in Sodium Chlor 0.9% Inj 500 ML IV.SIG SCH (05:52)
[2017-10-17] MEDS: Enoxaparin Inj 30 MG/0.3 ML Syringe SQ SCH (09:19)
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
[2017-10-17] MEDS: Lisinopril 20 MG Tablet PO SCH (10:06)
[2017-10-17] MEDS: Calcium/Vitamin D 250/125 MG Tablet PO SCH (10:09)
[2017-10-17] MEDS: Chlorhexidine 0.12% Oral Kit 15 ML UDC OROPHARYNG SCH (10:10)
[2017-10-17] MEDS: Senna/Docusate Sodium 8.6/50 MG Tablet PO SCH (10:11)
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
[2017-10-22] MEDS ORDERED: DOPamine 400 MG/250 ML Premix 400 MG/250 ML BAG IV.CONT ONE (10:30)
== END 2017-10-17 12:40 ==
LOC: NEPI 11:02 → EDBD 11:46 → NEDA 11:46 → N03 11:56
PROVIDERS: ADMIT Surgery; ATTEND Surgery
PROC: ORIFANK (2017-10-07 09:55)

== ENCOUNTER 2018-01-31 13:48 | Inpatient (IN) ==
[2018-01-31] MEDS ORDERED: Sodium Chlor 0.9% Inj 500 ML IV.SIG SCH (16:00)
[2018-01-31 16:10] LABS: Chloride 103 meq/L (98-107); Potassium 3.6 meq/L (3.5-5.1); Sodium 139 meq/L (136-145)
[2018-01-31 16:13] LABS: Calcium 8.5 mg/dL (8.5-10.1)
[2018-01-31 16:14] LABS: Albumin 3.6 g/dL (3.4-5.0); Anion Gap 9 meq/L (5-15); Blood Urea Nitrogen 14 mg/dL (7-18); Carbon Dioxide 26.6 meq/L (21.0-32.0); Glucose,Random 115 mg/dL (74-106)
[2018-01-31 16:15] LABS: Activated Partial Thrombo Time 26.3 sec (23.4-31.7); Baso # (Auto) 0.1 th/mm3 (0.0-0.2); Baso % (Auto) 0.6 % (0.0-2.0); Eos # (Auto) 0.3 th/mm3 (0.0-0.4); Eos % (Auto) 2.8 % (0.0-4.0); Hematocrit 43.2 % (39.0-51.0); Hemoglobin 13.7 gm/dL (13.0-17.0); Lymph # (Auto) 1.4 th/mm3 (1.0-4.8); Lymph % (Auto) 15.7 % (9.0-44.0); Mean Corpuscular HGB Conc 31.8 % (32.0-36.0); Mean Corpuscular Hemoglobin 28.3 pg (27.0-34.0); Mean Corpuscular Volume 88.8 fL (80.0-100.0); Mean Platelet Volume 9.1 fL (7.0-11.0); Mono # (Auto) 0.6 th/mm3 (0.0-0.9); Mono % (Auto) 6.3 % (0.0-8.0); Neut # (Auto) 6.8 th/mm3 (1.8-7.7); Neut % (Auto) 74.6 % (16.0-70.0); Platelet Count 127 th/mm3 (150-450); Prothrombin Time 9.9 sec (9.8-11.6); Red Blood Count 4.86 mil/mm3 (4.50-5.90); Red Cell Distribution Width 15.5 % (11.6-17.2); White Blood Count 9.2 th/mm3 (4.0-11.0)
[2018-01-31 16:17] LABS: Alanine Aminotransferase 43 U/L (12-78); Aspartate Aminotransferase 18 U/L (15-37); Glomerular Filtration Rate Greater Than 89 mL/min (>89)
[2018-01-31 16:18] LABS: Total Protein 7.7 g/dL (6.4-8.2)
[2018-01-31 16:20] LABS: Alkaline Phosphatase 145 U/L (45-117)
--- NOTE | 2018-01-31 16:55 | US ---
EXAM DATE: 01/31/2018 4:50 PM EST AGE/SEX: 42 years / Male INDICATIONS: Right lower extremity swelling. CLINICAL DATA: This is the patient's initial encounter. Patient reports that signs and symptoms have been present for 1 week and indicates a pain score of 0/10. MEDICAL/SURGICAL HISTORY: . Traumatic brain injury. . Left leg surgery. COMPARISON: [facility] [place], US VENOUS DOPPLER LEG BI, 10/05/2017. . TECHNIQUE: Venous ultrasound of both lower extremities was performed from the inguinal ligament to t he proximal calf. Real-time, color Doppler and spectral tracing, compression and augmentation techni ques were used. FINDINGS: There is nonocclusive thrombus noted in the common femoral vein extending through the femo ral vein and popliteal vein to the posterior tibial vein. CONCLUSION: 1. Nonocclusive thrombus involving the right femoral and popliteal veins extending to the proximal c detention, likely chronic. Electronically signed by: Chalino Tucker MD 01/31/2018 4:53 PM EST
--- NOTE | 2018-01-31 19:08 | ED ---
HPI General Chief complaint: Syncope Stated complaint: Syncope/Hx Brain Inj in September Time Seen by Provider: 01/31/18 15:08 Source: patient Limitations: no limitations History of Present Illness HPI narrative: Patient is a 42-year-old male with history of traumatic brain injury who is brought in by his dad due to concerns for near syncope and tachycardia. Dad says over the past 3 days he has had 3 events where he has almost passed out. He says during these events he has become tachycardic. He is also noticed swelling to his right leg, which is new. He complains of decreased sensation to this right leg. Patient has been on Lovenox in the past , but it was stopped for an unknown reason when he entered outpatient rehab. He currently is doing rehab in [place], but is home for the holiday. He denies any chest pain or shortness of breath. He has not had any fever or chills. Severity is mild to moderate. Related Data Home Medications Medication Instructions Recorded Confirmed amantadine HCl 200 mg PO BID 01/31/18 01/31/18 Allergies Allergy/AdvReac Type Severity Reaction Status Date / Time No Known Allergies Allergy Verified 01/31/18 13:58 Review of Systems ROS: all other systems reviewed are negative Constitutional Denies chills and Denies fever(s) ENT Denies dizziness Cardiovascular Denies chest pain Respiratory Denies dyspnea Gastrointestinal Denies nausea and Denies vomiting Musculoskeletal Denies back pain Integumentary/Breasts Denies wounds Neurologic [facility] Medical History Medical History Patient denies medical problems (Acute) Social History Social History Substance History: No History of Abuse Second Hand Smoke Exposure: No Smoking Status: Never smoker How Often Do You Have a Drink Containing Alcohol: Never Recent Travel in [facility] within the Last 8 Weeks: No Recent Out of Country Travel within the Last 8 Weeks: No Immunization History Tetanus Immunization: <5 Years Tetanus Immunization Year if Known: 2018 Exam Narrative Exam Narrative: GENERAL: Awake and alert, no acute distress. SKIN: Focused skin assessment warm/dry. No wounds or signs of infection. HEAD: Atraumatic. Normocephalic. EYES: Pupils equal and round. No scleral icterus. No injection or drainage. ENT: No nasal bleeding or discharge. Mucous membranes pink and moist. NECK: Trachea midline. No JVD. CARDIOVASCULAR: Regular rate and rhythm. No murmur appreciated. RESPIRATORY: No accessory muscle use. Clear to auscultation. Breath sounds equal bilaterally. GASTROINTESTINAL: Abdomen soft, non-tender, nondistended. MUSCULOSKELETAL: No obvious deformities. No clubbing. No cyanosis. Large edema of the right lower extremity. Pedal pulses intact. NEUROLOGICAL: Awake and alert. No obvious cranial nerve deficits. Motor grossly within normal limits. Normal speech. PSYCHIATRIC: Appropriate mood and affect; insight and judgment normal. Course Reevaluation(s) Reevaluation #1: Patient stable and doing well, with no symptoms at time of reexamination and discussion of negative CT angiography results. Time: 20:47 Initial Documented Vital Signs Temperature 97.7 F 01/31/18 13:54 Pulse Rate 126 H 01/31/18 13:54 Respiratory Rate 16 01/31/18 13:54 Blood Pressure 128/79 01/31/18 13:54 Pulse Oximetry 98 01/31/18 13:54 Last Documented Vital Signs Temperature 98.7 F 02/01/18 04:00 Pulse Rate 104 H 02/01/18 05:00 Respiratory Rate 16 02/01/18 04:00 Blood Pressure 121/71 02/01/18 05:00 Pulse Oximetry 98 02/01/18 04:00 Medical Decision Making MDM Narrative Medical decision making narrative: Patient received in transfer of care from Dr. Reid with history of syncopal episodes, with associated tachycardia, over the past several days. Patient had confirmation of thromboembolism of right lower extremity, but CT scan of brain shows a new right frontal hematoma, appears acute, 9 mm. Given the acuity of bleeding, although small, patient will need neurosurgical consultation for this, and it complicates his anticoagulation for his thromboembolism. Patient will need admission for evaluation and further care of this new subdural hematoma, as well as management of his right lower extremity venous thromboembolism. Professor Of Biology, Dr. Leblanc consulted at 2145 hrs., and she will to see patient, recommends admission to the [facility]. Medical Screen Exam Complete: Yes Emergency Medical Condition: Yes Lab Data Result diagrams: 01/31/18 15:48 01/31/18 15:48 Lab Results 01/31/18 01/31/18 01/31/18 Range/Units 15:48 15:48 15:48 CBC w Diff Auto diff final WBC 9.2 (4.0-11.0) th/mm3 RBC 4.86 (4.50-5.90) mil/mm3 Hgb 13.7 (13.0-17.0) gm/dL Hct 43.2 (39.0-51.0) % MCV 88.8 (80.0-100.0) fL MCH 28.3 (27.0-34.0) pg MCHC 31.8 L (32.0-36.0) % RDW 15.5 (11.6-17.2) % Plt Count 127 L (150-450) th/mm3 MPV 9.1 (7.0-11.0) fL Neut % (Auto) 74.6 H (16.0-70.0) % Lymph % (Auto) 15.7 (9.0-44.0) % [place] % (Auto) 6.3 (0.0-8.0) % Eos % (Auto) 2.8 (0.0-4.0) % Baso % (Auto) 0.6 (0.0-2.0) % Neut # (Auto) 6.8 (1.8-7.7) th/mm3 Lymph # (Auto) 1.4 (1.0-4.8) th/mm3 [place] # (Auto) 0.6 (0.0-0.9) th/mm3 Eos # (Auto) 0.3 (0.0-0.4) th/mm3 Baso # (Auto) 0.1 (0.0-0.2) th/mm3 WBC Differential . Differential Comment . PT 9.9 (9.8-11.6) sec INR 1.0 Ratio APTT 26.3 (23.4-31.7) sec Sodium 139 (136-145) meq/L Potassium 3.6 (3.5-5.1) meq/L Chloride 103 (98-107) meq/L Carbon Dioxide 26.6 (21.0-32.0) meq/L Anion Gap 9 (5-15) meq/L BUN 14 (7-18) mg/dL Creatinine 0.74 (0.60-1.30) mg/dL Estimated GFR Greater than 89 (>89) mL/min Random Glucose 115 H (74-106) mg/dL Calcium 8.5 (8.5-10.1) mg/dL Phosphorus (2.5-4.9) mg/dL Magnesium (1.5-2.5) mg/dL Total Bilirubin 0.3 (0.2-1.0) mg/dL AST 18 (15-37) U/L ALT 43 (12-78) U/L Alkaline Phosphatase 145 H (45-117) U/L Troponin I Less than 0.02 L (0.02-0.05) ng/mL Total Protein 7.7 (6.4-8.2) g/dL Albumin 3.6 (3.4-5.0) g/dL TSH (0.358-3.740) uIU/mL Urine Color (Yellw/Straw) Urine Clarity (Clear) Urine pH (5.0-8.5) Ur Specific [place] (1.002-1.035) Urine Protein (Neg-Trace) mg/dL Urine Glucose (UA) (Negative) mg/dL Urine Ketones (Negative) mg/dL Urine Occult Blood (Negative) Urine Nitrate (Negative) Urine Bilirubin (Negative) Urine Urobilinogen (Less than 2) mg/dL Ur Leukocyte Esterase (Negative) Urine RBC (0-3) /hpf Urine WBC (0-5) /hpf Ur Squamous Epith Cells (0-5) /hpf Micro UA Comment Ur Microscopic Review Urine Culture Comments Nasal Screen MRSA (PCR) (Negative) 01/31/18 01/31/18 02/01/18 Range/Units 20:20 22:20 00:50 CBC w Diff WBC (4.0-11.0) th/mm3 RBC (4.50-5.90) mil/mm3 Hgb (13.0-17.0) gm/dL Hct (39.0-51.0) % MCV (80.0-100.0) fL MCH (27.0-34.0) pg MCHC (32.0-36.0) % RDW (11.6-17.2) % Plt Count (150-450) th/mm3 MPV (7.0-11.0) fL Neut % (Auto) (16.0-70.0) % Lymph % (Auto) (9.0-44.0) % [place] % (Auto) (0.0-8.0) % Eos % (Auto) (0.0-4.0) % Baso % (Auto) (0.0-2.0) % Neut # (Auto) (1.8-7.7) th/mm3 Lymph # (Auto) (1.0-4.8) th/mm3 [place] # (Auto) (0.0-0.9) th/mm3 Eos # (Auto) (0.0-0.4) th/mm3 Baso # (Auto) (0.0-0.2) th/mm3 WBC Differential Differential Comment PT (9.8-11.6) sec INR Ratio APTT (23.4-31.7) sec Sodium (136-145) meq/L Potassium (3.5-5.1) meq/L Chloride (98-107) meq/L Carbon Dioxide (21.0-32.0) meq/L Anion Gap (5-15) meq/L BUN (7-18) mg/dL Creatinine (0.60-1.30) mg/dL Estimated GFR (>89) mL/min Random Glucose (74-106) mg/dL Calcium (8.5-10.1) mg/dL Phosphorus 3.9 (2.5-4.9) mg/dL Magnesium 2.1 (1.5-2.5) mg/dL Total Bilirubin (0.2-1.0) mg/dL AST (15-37) U/L ALT (12-78) U/L Alkaline Phosphatase (45-117) U/L Troponin I Less than 0.02 L (0.02-0.05) ng/mL Total Protein (6.4-8.2) g/dL Albumin (3.4-5.0) g/dL TSH 1.790 (0.358-3.740) uIU/mL Urine Color Yellow (Yellw/Straw) Urine Clarity Clear (Clear) Urine pH 5.5 (5.0-8.5) Ur Specific [place] Greater/equal 1.030 (1.002-1.035) Urine Protein Negative (Neg-Trace) mg/dL Urine Glucose (UA) Negative (Negative) mg/dL Urine Ketones Negative (Negative) mg/dL Urine Occult Blood Negative (Negative) Urine Nitrate Negative (Negative) Urine Bilirubin Negative (Negative) Urine Urobilinogen 0.2 (Less than 2) mg/dL Ur Leukocyte Esterase Negative (Negative) Urine RBC 0-3 (0-3) /hpf Urine WBC 0-5 (0-5) /hpf Ur Squamous Epith Cells 0-5 (0-5) /hpf Micro UA Comment Culture not ind Ur Microscopic Review Microscopic reviewed Urine Culture Comments Culture not ind Nasal Screen MRSA (PCR) Not detected (Negative) Imaging Data Radiologist's impression: Chest CTA 01/31/18 15:18 CONCLUSION: 1. No pulmonary embolus. 2. Mild atelectasis/scarring of the right lower lobe. Previously seen bilateral effusions and lower lobe consolidation have resolved. Head CT 01/31/18 15:18 CONCLUSION: 1. Small right frontal acute appearing subdural hematoma as described. No midline shift. 2. No other acute intracranial hemorrhage or hematoma. Previously seen subarachnoid blood has resolved. 3. Intact skull. . Venous Doppler Study 01/31/18 15:18 CONCLUSION: 1. 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 Abdomen X-Ray 02/01/18 00:00 CONCLUSION: Inferior vena cava filter noted. No acute findings. ECG Data EKG Prior to Arrival: No Attestation: I personally reviewed and interpreted this ECG as follows: Interpretation: Normal EKG taken at 1535 hrs. Baseline rhythm is sinus at 96 bpm. QRS morphology is normal with normal QRS axis of 30 degrees, but normal QRS interval of 89 ms. VT interval is normal at 136 ms, QT interval is normal at 381 ms corrected. There are no ST segment elevations or depressions, but no T wave inversions. Discharge Plan Discharge Disposition Patient Disposition: 70 Transfer To Other Facility Discharge Condition Condition: Stable Discharge Order Discharge Orders: Discharge Order (Routine); Ordered 01/31/18 Ordered By: Saul Green Physicians Team ED Provider: Saul Green Primary Care Provider: Isidoro Culp Attending Provider: Rachell Leblanc Other Providers: Clinton Lane Status ED Status: Left Department Discharge Information Discharge Date/Time: 02/01/18 00:16
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
--- NOTE | 2018-01-31 19:53 | CT ---
EXAM DATE: 01/31/2018 7:40 PM EST AGE/SEX: 42 years / Male INDICATIONS: Syncope. Abnormal lower extremity ultrasound. CLINICAL DATA: This is the patient's initial encounter. Patient reports that signs and symptoms have been present for 1 day and indicates a pain score of 0/10. MEDICAL/SURGICAL HISTORY: . Traumatic brain injury 09/23 None. RADIATION DOSE: 14.65 CTDI (mGy) COMPARISON: [facility], CTA PULMONARY W CONTRAST W 3D, 10/07/2017. [facility], US VENOUS DOPPLER LEG RIGHT, . . TECHNIQUE: Volumetric scanning was performed using a multi-row detector CT scanner during bolus infu coleman of 65 ml Omnipaque 350 (iohexol) nonionic water-soluble contrast as a single exam dose. The staci a was post processed with a variety of visualization algorithms including full volume maximum intensi ty projection and sliding thin slab reformation. Using automated exposure control and adjustment of the mA and/or kV according to patient size, radiation dose was kept as low as reasonably achievable t o obtain optimal diagnostic quality images. DICOM format image data is available electronically for review and comparison. FINDINGS: There is no pulmonary embolus. Normal, stable heart size. Tiny pericardial effusion, similar to befor e. Previously seen effusions and lower lobe consolidation of both lungs have resolved. There is a focal area of streaky atelectasis and/or scarring now seen of the right lower lobe. No new or persistent pl eural effusion. No pneumothorax. CONCLUSION: 1. No pulmonary embolus. 2. Mild atelectasis/scarring of the right lower lobe. Previously seen bilateral effusions and lower lobe consolidation have resolved. Electronically signed by: Giuliano Georges MD 01/31/2018 7:52 PM EST
[2018-01-31 20:27] LABS: Bilirubin,Urine Negative (Negative); Clarity,Urine Clear (Clear); Color,Urine Yellow (Yellw/Straw); Glucose,Urine (UA) Negative (Negative); Leukocyte Esterase,Urine Negative (Negative); Nitrite,Urine Negative (Negative); PH,Urine 5.5 (5.0-8.5); Specific Gravity,Urine Greater/Equal 1.030 (1.002-1.035); Urobilinogen,Urine 0.2 mg/dL (Less than 2)
[2018-01-31 20:36] LABS: RBC,Urine 0-3 /hpf (0-3); Squamous Epithelial Cell,Urine 0-5 /hpf (0-5); WBC,Urine 0-5 /hpf (0-5)
[2018-01-31] MEDS ORDERED: Morphine Sulfate Inj 2 MG/ML Vial IV.PUSH PRN (21:58)
[2018-01-31] MEDS ORDERED: Acetaminophen 325 MG Tablet PO PRN (21:58)
[2018-01-31] MEDS ORDERED: Bisacodyl 10 MG Supp RECTAL PRN (21:58)
[2018-01-31] MEDS ORDERED: Magnesium Oxide 400 MG Tablet PO PRN (22:05)
[2018-01-31] MEDS ORDERED: Potassium Chlor 20 mEq Premix 20 MEQ/100 ML PIGGYBACK IV.SIG PRN ×2 (22:05)
[2018-01-31] MEDS ORDERED: Sodium Phosphate Inj 30 MMOL in Sodium Chlor 0.9% Inj 250 ML IV.SIG PRN (22:05)
[2018-01-31] MEDS ORDERED: Magnesium Sulfate Inj 4 GM in Sodium Chlor 0.9% Inj 92 ML IV.SIG PRN (22:05)
[2018-01-31] MEDS ORDERED: Magnesium Sulfate Inj 2 GM in Sodium Chlor 0.9% Inj 96 ML IV.SIG PRN (22:05)
[2018-01-31] MEDS ORDERED: Potassium Phosphate 500 MG Soluble Tablet PO PRN ×2 (22:05)
[2018-01-31] MEDS ORDERED: Potassium Chloride 25 MEQ Effervescent Tablet PO PRN (22:05)
[2018-01-31] MEDS ORDERED: Potassium Phosphate Inj 30 MMOL in Sodium Chlor 0.9% Inj 250 ML IV.SIG PRN (22:05)
[2018-01-31] MEDS ORDERED: Potassium Chlor 40 mEq Premix 40 MEQ/100 ML PIGGYBACK IV.SIG PRN ×2 (22:05)
[2018-01-31] MEDS: Sod Chloride 0.9% Inj 1,000 ML IV.CONT SCH (22:37)
[2018-01-31 22:38] LABS: Magnesium 2.1 mg/dL (1.5-2.5)
[2018-01-31 22:42] LABS: Phosphorus 3.9 mg/dL (2.5-4.9)
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
[2018-02-01] MEDS: Chlorhexidine Gluconate 2% 1 Pack (2 Cloths) TOPICAL SCH (03:35)
[2018-02-01] MEDS ORDERED: Chlorhexidine Gluconate 2% 1 Pack (2 Cloths) TOPICAL PRN (04:00)
--- NOTE | 2018-02-01 04:28 | XR ---
EXAM DATE: 02/01/2018 4:16 AM EST AGE/SEX: 42 years / Male INDICATIONS: Abdominal IVC filter. CLINICAL DATA: This is the patient's subsequent encounter. Patient reports that signs and symptoms h ave been present for 2 days and indicates a pain score of Nonresponsive. MEDICAL/SURGICAL HISTORY: . Traumatic Brain Injury. Non-responsive. COMPARISON: No prior exams available for comparison. FINDINGS: Mild ileus. Tal and screw fixation proximal left femur. Inferior vena cava filter present. Residual contrast in the bladder. CONCLUSION: Inferior vena cava filter noted. No acute findings. Electronically signed by: Milton Cotter MD 02/01/2018 4:27 AM EST
[2018-02-01 08:01] LABS: Baso % (Auto) 0.5 % (0.0-2.0); Eos # (Auto) 0.3 th/mm3 (0.0-0.4); Eos % (Auto) 3.2 % (0.0-4.0); Hematocrit 36.2 % (39.0-51.0); Hemoglobin 12.5 gm/dL (13.0-17.0); Lymph # (Auto) 1.5 th/mm3 (1.0-4.8); Lymph % (Auto) 18.1 % (9.0-44.0); Mean Corpuscular HGB Conc 34.5 % (32.0-36.0); Mean Corpuscular Hemoglobin 30.5 pg (27.0-34.0); Mean Corpuscular Volume 88.4 fL (80.0-100.0); Mean Platelet Volume 8.4 fL (7.0-11.0); Mono # (Auto) 0.6 th/mm3 (0.0-0.9); Mono % (Auto) 7.5 % (0.0-8.0); Neut # (Auto) 5.7 th/mm3 (1.8-7.7); Neut % (Auto) 70.7 % (16.0-70.0); Platelet Count 105 th/mm3 (150-450); Red Cell Distribution Width 15.8 % (11.6-17.2); White Blood Count 8.1 th/mm3 (4.0-11.0)
[2018-02-01 08:13] LABS: Anion Gap 8 meq/L (5-15); Blood Urea Nitrogen 13 mg/dL (7-18); Calcium 8.2 mg/dL (8.5-10.1); Carbon Dioxide 27.3 meq/L (21.0-32.0); Chloride 109 meq/L (98-107); Glomerular Filtration Rate Greater Than 89 mL/min (>89); Glucose,Random 86 mg/dL (74-106); Potassium 3.8 meq/L (3.5-5.1); Sodium 144 meq/L (136-145)
[2018-02-01] MEDS: Famotidine PF Inj 20 MG/2 ML Vial IV.PUSH SCH ×2 (08:40→21:12)
[2018-02-01] MEDS: Senna/Docusate Sodium 8.6/50 MG Tablet PO SCH ×2 (08:40→21:12)
[2018-02-01] MEDS: Amantadine Liq 100 MG/10 ML UDC PO SCH ×2 (08:40→21:12)
--- NOTE | 2018-02-01 09:14 | CT ---
EXAM DATE: 02/01/2018 9:08 AM EST AGE/SEX: 42 years / Male INDICATIONS: Follow up subdural hematoma. CLINICAL DATA: This is the patient's initial encounter. Patient reports that signs and symptoms have been present for 1 day and indicates a pain score of Nonresponsive. MEDICAL/SURGICAL HISTORY: Asthma. Traumatic brain injury. . Tracheostomy. RADIATION DOSE: 36.21 CTDI (mGy) COMPARISON: [facility], CT HEAD W/O CONTRAST, 01/31/2018. . TECHNIQUE: CT of the head without contrast. Using automated exposure control and adjustment of the mA and/or kV according to patient size, radiation dose was kept as low as reasonably achievable to ob tain optimal diagnostic quality images. DICOM format image data is available electronically for revi ew and comparison. FINDINGS: The examination demonstrates a small subdural hemorrhage along the right frontal cortex. This has a m aximum thickness of 7 mm. This has decreased in size and density when compared to the previous study dated 01/31/2018. No new areas of hemorrhage are seen. The ventricular system is normal in size and configuration. No mass lesion is identified. The appearance of the posterior fossa is unremarkable. The visualized portion of sinus and orbit are intact. No skull fracture is seen. CONCLUSION: 1. Resolving subdural hematoma along the right frontal cortex as described above. Electronically signed by: Kyaw Demarco MD 02/01/2018 9:13 AM EST
[2018-02-01] MEDS: Sod Chloride 0.9% Inj 1,000 ML IV.CONT SCH ×2 (10:39→15:22)
--- NOTE | 2018-02-01 14:44 | P.CONNS ---
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 Chronicity: chronic Medications and Allergies Active Medications: Active Medications Acetaminophen (Tylenol) 650 mg PO Q6H PRN PRN Reason: Pain 1-10 And/Or temp >100.4 Hydrocodone Bitart/Acetaminophen ([place]ardner 5/325) 1 tab PO Q4H PRN PRN Reason: PAIN SCALE 1 TO 5 Al Hydroxide/Mg Hydroxide (Milk Of Magnesia Liq) 30 ml PO Q12H PRN PRN Reason: Mild Constipation Amantadine HCl (Symmetrel Liq) 200 mg PO BID [facility] Bisacodyl (Dulcolax Supp) 10 mg RECTAL DAILY PRN PRN Reason: SEVERE CONSITIPATION Chlorhexidine Gluconate (Chlorhexidine 2% Cloth) 3 pack TOPICAL DAILY@0400 SR[facility] Stop: 02/06/18 03:59 Chlorhexidine Gluconate (Chlorhexidine 2% Cloth) 3 pack TOPICAL DAILY@0400 PRN PRN Reason: Extra cloth needed Stop: 02/06/18 03:59 Famotidine (Pepcid Pf Inj) 20 mg IV.PUSH Q12HR SRIDEVI Sodium Chloride (Ns Inj) 1,000 mls @ 70 mls/hr IV.CONT .[id number] SRIDEVI Last Admin: 01/31/18 22:37 Dose: 70 mls/hr Magnesium Sulfate 4 gm/ Sodium (Chloride) 100 mls @ 50 mls/hr IV.SIG UNSCH PRN PRN Reason: For Magnesium 0.9 - 1.1 mg/dL Magnesium Sulfate 2 gm/ Sodium (Chloride) 100 mls @ 50 mls/hr IV.SIG UNSCH PRN PRN Reason: For Magnesium 1.2 - 1.6 mg/dL Potassium Chloride (Kcl 40 Meq Premix Inj) 40 meq in 100 mls @ 25 mls/hr IV.SIG Q2H PRN PRN Reason: For Potassium 2.8 - 3.2 mEq/L Potassium Chloride (Kcl 20 Meq Premix Inj) 20 meq in 100 mls @ 50 mls/hr IV.SIG Q2H PRN PRN Reason: For Potassium 3.3 - 3.5 mEq/L Potassium Chloride (Kcl 40 Meq Premix Inj) 40 meq in 100 mls @ 25 mls/hr IV.SIG UNSCH PRN PRN Reason: For Potassium 3.3 - 3.5 mEq/L Potassium Chloride (Kcl 20 Meq Premix Inj) 20 meq in 100 mls @ 50 mls/hr IV.SIG Q2H PRN PRN Reason: For Potassium 2.8 - 3.2 mEq/L Potassium Phosphate 30 mmol/ (Sodium Chloride) 260 mls @ 42 mls/hr IV.SIG UNSCH PRN PRN Reason: SEE LABEL COMMENTS Sodium Phosphate 30 mmol/ (Sodium Chloride) 260 mls @ 42 mls/hr IV.SIG UNSCH PRN PRN Reason: For Phosphorus < 2.5 mg/dL Lactulose (Lactulose Liq) 30 ml PO DAILY PRN PRN Reason: SEVERE CONSITIPATION Magnesium Oxide (Mag-Ox) 800 mg PO UNSCH PRN PRN Reason: For Magnesium 1.2 - 1.6 mg/dL Morphine Sulfate (Morphine Inj) 2 mg IV.PUSH Q2H PRN PRN Reason: PAIN SCALE 6 TO 10 Ondansetron HCl (Zofran Inj) 4 mg IV.PUSH Q6H PRN PRN Reason: NAUSEA OR VOMITING Potassium Bicarb/Potassium Chloride (K-Lyte Cl Eff) 50 meq PO UNSCH PRN PRN Reason: For Potassium 3.3 - 3.5 mEq/L Potassium Phosphate (K-Phos Original) 2,000 mg PO Q4H PRN PRN Reason: Phosphorus Less Than 2.5 mg/dL Potassium Phosphate (K-Phos Original) 2,000 mg PO UNSCH PRN PRN Reason: SEE LABEL COMMENTS Senna/Docusate Sodium (Le-Colace) 1 tab PO BID SRIDEVI Sennosides (Senokot) 17.2 mg PO Q12H PRN PRN Reason: Moderate Constipation Sodium Chloride (Ns Flush) 2 ml IV.FLUSH BID SRIDEVI Sodium Chloride (Ns Flush) 2 ml IV.FLUSH PRN PRN PRN Reason: FLUSH AFTER USING IV ACCESS Allergies Allergy/AdvReac Type Severity Reaction Status Date / Time No Known Allergies Allergy Verified 01/31/18 13:58 Home Medications Medication Instructions Recorded Confirmed Type amantadine HCl 200 mg PO BID 01/31/18 01/31/18 History Results - Labs CBC & Chem 7: 01/31/18 15:48 01/31/18 15:48 Labs: Short CBC 01/31/18 Range/Units 15:48 WBC 9.2 (4.0-11.0) th/mm3 Hgb 13.7 (13.0-17.0) gm/dL Hct 43.2 (39.0-51.0) % Plt Count 127 L (150-450) th/mm3 BMP 01/31/18 15:48 Sodium 139 Potassium 3.6 Chloride 103 Carbon Dioxide 26.6 BUN 14 Creatinine 0.74 Calcium 8.5 Cardiac Enzymes 01/31/18 01/31/18 Range/Units 15:48 22:20 Troponin I Less than 0.02 L Less than 0.02 L (0.02-0.05) ng/mL Liver Function 01/31/18 Range/Units 15:48 Total Bilirubin 0.3 (0.2-1.0) mg/dL AST 18 (15-37) U/L ALT 43 (12-78) U/L Alkaline Phosphatase 145 H (45-117) U/L Albumin 3.6 (3.4-5.0) g/dL Urine 01/31/18 Range/Units 20:20 Urine Color Yellow (Yellw/Straw) Urine Clarity Clear (Clear) Urine pH 5.5 (5.0-8.5) Ur Specific [place] Greater/equal 1.030 (1.002-1.035) Urine Protein Negative (Neg-Trace) mg/dL Urine Glucose (UA) Negative (Negative) mg/dL - Imaging Impressions PMFSH - History History Provided By: Patient - Medical History Medical History: Medical History (Last Updated 02/01/18 @ 06:29 by Rachell Leblanc MD) Asthma - Surgical History Surgical History: Surgical History (Last Updated 02/01/18 @ 06:29 by Rachell Leblanc MD) Hx of tracheostomy - Family History Family History: Family History (Last Updated 02/01/18 @ 06:30 by Rachell Leblanc MD) Mother HTN (hypertension) Father HTN (hypertension) - Tobacco History Second Hand Smoke Exposure: No Smoking Status: Never smoker - Alcohol History How Often Do You Have a Drink Containing Alcohol: Never - Substance Use History Substance History: No History of Abuse - Travel History Recent Travel in the [place] Within the Last 8 Weeks: No Recent Travel Out of the Country Within the Last 8 Weeks: No - Immunization History Tetanus Immunization: Unsure Tetanus Immunization Year if Known: 2017 Hx Influenza Vaccine This Season: No Medications and Allergies Active Medications: Active Medications Acetaminophen (Tylenol) 650 mg PO Q6H PRN PRN Reason: Pain 1-10 And/Or temp >100.4 Hydrocodone Bitart/Acetaminophen (Gardner 5/325) 1 tab PO Q4H PRN PRN Reason: PAIN SCALE 1 TO 5 Al Hydroxide/Mg Hydroxide (Milk Of Magnesia Liq) 30 ml PO Q12H PRN PRN Reason: Mild Constipation Amantadine HCl (Symmetrel Liq) 200 mg PO BID [facility] Last Admin: 02/01/18 08:40 Dose: 200 mg Bisacodyl (Dulcolax Supp) 10 mg RECTAL DAILY PRN PRN Reason: SEVERE CONSITIPATION Chlorhexidine Gluconate (Chlorhexidine 2% Cloth) 3 pack TOPICAL DAILY@0400 [facility] Stop: 02/06/18 03:59 Last Admin: 02/01/18 03:35 Dose: 3 pack Chlorhexidine Gluconate (Chlorhexidine 2% Cloth) 3 pack TOPICAL DAILY@0400 PRN PRN Reason: Extra cloth needed Stop: 02/06/18 03:59 Famotidine (Pepcid Pf Inj) 20 mg IV.PUSH Q12HR [facility] Last Admin: 02/01/18 08:40 Dose: 20 mg Sodium Chloride (Ns Inj) 1,000 mls @ 70 mls/hr IV.CONT .[id number] [facility] Last Admin: 02/01/18 10:39 Dose: 70 mls/hr Magnesium Sulfate 4 gm/ Sodium (Chloride) 100 mls @ 50 mls/hr IV.SIG UNSCH PRN PRN Reason: For Magnesium 0.9 - 1.1 mg/dL Magnesium Sulfate 2 gm/ Sodium (Chloride) 100 mls @ 50 mls/hr IV.SIG UNSCH PRN PRN Reason: For Magnesium 1.2 - 1.6 mg/dL Potassium Chloride (Kcl 40 Meq Premix Inj) 40 meq in 100 mls @ 25 mls/hr IV.SIG Q2H PRN PRN Reason: For Potassium 2.8 - 3.2 mEq/L Potassium Chloride (Kcl 20 Meq Premix Inj) 20 meq in 100 mls @ 50 mls/hr IV.SIG Q2H PRN PRN Reason: For Potassium 3.3 - 3.5 mEq/L Potassium Chloride (Kcl 40 Meq Premix Inj) 40 meq in 100 mls @ 25 mls/hr IV.SIG UNSCH PRN PRN Reason: For Potassium 3.3 - 3.5 mEq/L Potassium Chloride (Kcl 20 Meq Premix Inj) 20 meq in 100 mls @ 50 mls/hr IV.SIG Q2H PRN PRN Reason: For Potassium 2.8 - 3.2 mEq/L Potassium Phosphate 30 mmol/ (Sodium Chloride) 260 mls @ 42 mls/hr IV.SIG UNSCH PRN PRN Reason: SEE LABEL COMMENTS Sodium Phosphate 30 mmol/ (Sodium Chloride) 260 mls @ 42 mls/hr IV.SIG UNSCH PRN PRN Reason: For Phosphorus < 2.5 mg/dL Lactulose (Lactulose Liq) 30 ml PO DAILY PRN PRN Reason: SEVERE CONSITIPATION Magnesium Oxide (Mag-Ox) 800 mg PO UNSCH PRN PRN Reason: For Magnesium 1.2 - 1.6 mg/dL Morphine Sulfate (Morphine Inj) 2 mg IV.PUSH Q2H PRN PRN Reason: PAIN SCALE 6 TO 10 Ondansetron HCl (Zofran Inj) 4 mg IV.PUSH Q6H PRN PRN Reason: NAUSEA OR VOMITING Potassium Bicarb/Potassium Chloride (K-Lyte Cl Eff) 50 meq PO UNSCH PRN PRN Reason: For Potassium 3.3 - 3.5 mEq/L Potassium Phosphate (K-Phos Original) 2,000 mg PO Q4H PRN PRN Reason: Phosphorus Less Than 2.5 mg/dL Potassium Phosphate (K-Phos Original) 2,000 mg PO UNSCH PRN PRN Reason: SEE LABEL COMMENTS Senna/Docusate Sodium (Le-Colace) 1 tab PO BID [facility] Last Admin: 02/01/18 08:40 Dose: 1 tab Sennosides (Senokot) 17.2 mg PO Q12H PRN PRN Reason: Moderate Constipation Sodium Chloride (Ns Flush) 2 ml IV.FLUSH BID [facility] Last Admin: 02/01/18 08:40 Dose: 2 ml Sodium Chloride (Ns Flush) 2 ml IV.FLUSH PRN PRN PRN Reason: FLUSH AFTER USING IV ACCESS Exam Vital signs: Vital Signs 01/31/18 16:21 01/31/18 17:46 01/31/18 19:05 Temperature Pulse Rate 90 90 87 Respiratory Rate 16 16 16 Blood Pressure 138/78 132/78 134/78 Pulse Oximetry 100 100 100 01/31/18 22:26 01/31/18 23:50 02/01/18 00:13 Temperature Pulse Rate 74 78 78 Respiratory Rate 16 16 16 Blood Pressure 138/69 138/72 138/72 Pulse Oximetry 98 100 100 02/01/18 01:00 02/01/18 01:31 02/01/18 02:00 Temperature 98.6 F Pulse Rate 82 76 80 Respiratory Rate 21 Blood Pressure 119/72 Pulse Oximetry 97 02/01/18 03:00 02/01/18 04:00 02/01/18 05:00 Temperature 98.7 F Pulse Rate 80 76 104 H Respiratory Rate 16 Blood Pressure 126/75 121/71 121/71 Pulse Oximetry 97 98 02/01/18 06:00 02/01/18 07:00 02/01/18 07:18 Temperature Pulse Rate 80 80 93 H Respiratory Rate 15 20 Blood Pressure 125/78 123/82 Pulse Oximetry 99 98 02/01/18 08:00 02/01/18 08:18 02/01/18 09:00 Temperature 98.4 F Pulse Rate 92 H 89 100 H Respiratory Rate 24 22 15 Blood Pressure 128/79 Pulse Oximetry 98 98 99 02/01/18 09:18 02/01/18 10:00 02/01/18 10:18 Temperature Pulse Rate 87 90 92 H Respiratory Rate 18 18 Blood Pressure 122/69 125/75 Pulse Oximetry 98 98 97 02/01/18 11:01 02/01/18 11:18 Temperature Pulse Rate 96 H 91 H Respiratory Rate 28 H Blood Pressure 119/74 Pulse Oximetry 96 Intake & Output 01/31/18 02/01/18 02/01/18 18:59 06:59 18:59 Intake Total 500 / 500 0 / 0 1000 / 1000 Output Total 450 / 450 Balance 500 / 500 -450 / -450 1000 / 1000 Weight 67.9 kg 68.7 kg Intake: IV 500 / 500 1000 / 1000 NS Inj 1,000 ML @ 70 mls/hr IV. 1000 / 1000 CONT .[id number] SRIDEVI Rx#: [id number] NS Inj 500 ML @ 1000 mls/hr IV. 500 / 500 SIG BOLUS SRIDEVI Rx#:[id number] Oral 0 / 0 Output: Urine 450 / 450 Stool 0 / 0 Other: # Voids 2 Date of Last Bowel Movement 02/01/18 Weight On Admission 68.7 kg Narrative: GENERAL: Well-nourished, well-developed patient who is pleasant, alert, somewhat repetitive SKIN: Warm and dry. HEAD. Normocephalic. EYES: Right pupil 5 mm and nonreactive, no conjunctival injection or drainage.. Left pupil 3 mm and sluggishly reactive. (pupil changes noted in September per Dr. Holcomb's note) No scleral icterus. ENT: No nasal bleeding or discharge. Mucous membranes pink and moist. NECK: Trachea midline. No JVD. CARDIOVASCULAR: Regular rate and rhythm. No murmurs rubs or gallops. RESPIRATORY: No accessory muscle use. Clear to auscultation. Breath sounds equal bilaterally. GASTROINTESTINAL: Abdomen soft, non-tender, nondistended. Bowel sounds present. MUSCULOSKELETAL: Extremities without clubbing, cyanosis. There is edema of right lower extremity including thigh and calf. NEUROLOGICAL: Awake and alert. Pupils as per above. Strength is 5 out of 5 throughout his lower extremity. Strength is 4 out of 5 right hip flexor, 5 out of 5 right ankle plantar and dorsiflexion. Strength is 4 out of 5 right hand intrinsics, 4 out of 5 right triceps, 5 out of 5 right biceps. Results - Laboratory Findings CBC and BMP: 02/01/18 07:50 02/01/18 07:50 Abnormal lab findings: Abnormal Labs 01/31/18 01/31/18 01/31/18 15:48 15:48 22:20 RBC Hgb Hct MCHC 31.8 L Plt Count 127 L Neut % (Auto) 74.6 H Chloride Creatinine Random Glucose 115 H Calcium Alkaline Phosphatase 145 H Troponin I Less than 0.02 L Less than 0.02 L 02/01/18 02/01/18 07:50 07:50 RBC 4.10 L Hgb 12.5 L Hct 36.2 L MCHC Plt Count 105 L Neut % (Auto) 70.7 H Chloride 109 H Creatinine 0.59 L Random Glucose Calcium 8.2 L Alkaline Phosphatase Troponin I Less than 0.02 L Assessment and Plan - Plan - Problem List (1) SDH (subdural hematoma) Code(s): S06.5X9A - Traumatic subdural hemorrhage with loss of consciousness of unspecified duration, initial encounter Status: Acute (2) Postural dizziness with near syncope Code(s): R42 - Dizziness and giddiness; R55 - Syncope and collapse Status: Acute (3) Hx of traumatic brain injury Code(s): Z87.820 - Personal history of traumatic brain injury Status: Acute (4) Dvt femoral (deep venous thrombosis) Code(s): I82.419 - Acute embolism and thrombosis of unspecified femoral vein Status: Chronic I have reviewed the clinical and radiological findings Chest CTA 01/31/18 15:18 CONCLUSION: 1. No pulmonary embolus. 2. Mild atelectasis/scarring of the right lower lobe. Previously seen bilateral effusions and lower lobe consolidation have resolved. Head CT 01/31/18 15:18 CONCLUSION: 1. Small right frontal acute appearing subdural hematoma as described. No midline shift. 2. No other acute intracranial hemorrhage or hematoma. Previously seen subarachnoid blood has resolved. 3. Intact skull. . Venous Doppler Study 01/31/18 15:18 CONCLUSION: 1. 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 Neuro: neuro checks in a serial fashion. History of asthma On room airn\, aggressive pulmonary toilette, nasotracheal suction, and breathing treatments with nebulizers. Near-syncope Patient describes orthostatic symptoms. Denies cardiac symptoms or palpitations. Initial troponin is negative. Will trend. Will follow telemetry to assess for arrhythmia as an etiology. Follow-up 2D echo. CT pulmonary angio was negative for PE Ultrasound 02/01 showed nonocclusive right lower extremity DVT and right femoral and popliteal veins. Unable to see IVC on the CT pulmonary angiogram. Patient unsure if it was removed. Will check KUB to confirm placement of IVC filter. Will hold on anticoagulation until appropriate to resume from neurosurgical standpoint. Daily PT and OT Renal: Continue to monitor closely urine output, BUN and creatinine Endocrine: Continue to Monitor serial Acu checks and SSI as needed in detail ID continue to monitor for signs of infection Continue Protonix for stress ulcer prophylaxis Continue Raul hose and SCD's for DVT prophylaxis Caprini VTE Risk Assessment Caprini VTE Risk Assessment: Moderate/High Risk (score >= 2) VTE Pharmacological Exception Reason: Intracranial lesions Caprini Risk Assessment Model: Point Value = 1 Point Value = 2 Point Value = 3 Point Value = 5 Age 41-60 Minor surgery BMI > 25 kg/m2 Swollen legs Varicose veins or History of unexplained or recurrent spontaneous Oral contraceptives or hormone replacement Sepsis (< 1 month) Serious lung disease, including pneumonia (< 1 month) Abnormal pulmonary function Acute myocardial infarction Congestive heart failure (< 1 month) History of inflammatory bowel disease Medical patient at bed rest Age 61-74 Arthroscopic surgery Major open surgery (> 45 min) Laparoscopic surgery (> 45 min) Malignancy Confined to bed (> 72 hours) Immobilizing plaster cast Central venous access Age >= 75 History of VTE Family history of VTE Factor V Leiden Prothrombin [id number] Lupus anticoagulant Anticardiolipin antibodies Elevated serum homocysteine Heparin-induced thrombocytopenia Other congenital or acquired thrombophilia Stroke (< 1 month) Elective arthroplasty Hip, pelvis, or leg fracture Acute spinal cord injury (< 1 month) Prophylaxis Regimen: Total Risk Factor Score Risk Level Prophylaxis Regimen 0-1 Low Early ambulation 2 Moderate Order ONE of the following: *Sequential Compression Device (SCD) *Heparin 5000 units SQ BID 3-4 Higher Order ONE of the following medications: *HepaNeuro: neuro checks in a serial fashion. Pulmonary: aggressive pulmonary toilette, nasotracheal suction, and breathing treatments with nebulizers. Daily PT and OT Renal: Continue to monitor closely urine output, BUN and creatinine Endocrine: Continue to Monitor serial Acu checks and SSI as needed in detail ID continue to monitor for signs of infection Continue Protonix for stress ulcer prophylaxis Continue Raul hose and SCD's for DVT prophylaxis Further recommendations will be provided depending on the patient's clinical evaluation and follow up studies.rin 5000 units SQ TID *Enoxaparin/Lovenox 40 mg SQ daily (WT < 150 kg, CrCl > 30 mL/min) *Enoxaparin/Lovenox 30 mg SQ daily (WT < 150 kg, CrCl > 10-29 mL/min) *Enoxaparin/Lovenox 30 mg SQ BID (WT < 150 kg, CrCl > 30 mL/min) AND/OR *Sequential Compression Device (SCD) 5 or more Highest Order ONE of the following medications: *Heparin 5000 units SQ TID (Preferred with Epidurals) *Enoxaparin/Lovenox 40 mg SQ daily (WT < 150 kg, CrCl > 30 mL/min) *Enoxaparin/Lovenox 30 mg SQ daily (WT < 150 kg, CrCl > 10-29 mL/min) *Enoxaparin/Lovenox 30 mg SQ BID (WT < 150 kg, CrCl > 30 mL/min) AND *Sequential Compression Device (SCD)
--- NOTE | 2018-02-01 18:19 | ECHRPT ---
Indication: SYNCOPE CONCLUSIONS The left ventricular systolic function is normal with an estimated ejection fraction in the range of 55-60%. There is trace tricuspid valve regurgitation. BP: / HR: Rhythm: Sinus MEASUREMENTS (Male / Female) Normal Values Technical Quality:Fair 2D ECHO LV Diastolic Diameter PLAX 4.5 cm 4.2 - 5.9 / 3.9 - 5.3 cm LV Systolic Diameter PLAX 3.3 cm IVS Diastolic Thickness 0.9 cm 0.6 - 1.0 / 0.6 - 0.9 cm LVPW Diastolic Thickness 0.9 cm 0.6 - 1.0 / 0.6 - 0.9 cm LV Relative Wall Thickness 0.4 RV Internal Dim ED PLAX 3.1 cm LVOT Diameter 2.1 cm Aortic Root Diameter 3.1 cm LA Systolic Diameter LX 2.9 cm 3.0 - 4.0 / 2.7 - 3.8 cm DOPPLER AV Peak Velocity 109.0 cm/s AV Peak Gradient 4.8 mmHg LVOT Peak Velocity 83.4 cm/s LVOT Peak Gradient 2.8 mmHg AV Area Cont Eq pk 2.7 cm Mitral E Point Velocity 69.1 cm/s Mitral A Point Velocity 64.2 cm/s Mitral E to A Ratio 1.1 LV E' Lateral Velocity 8.5 cm/s Mitral E to LV E' Lateral Ratio 8.1 LV E' Septal Velocity 6.8 cm/s Mitral E to LV E' Septal Ratio 10.1 TR Peak Velocity 197.0 cm/s TR Peak Gradient 15.5 mmHg Right Atrial Pressure 10.0 mmHg Pulmonary Artery Systolic Pressu 25.5 mmHg Right Ventricular Systolic Press 25.5 mmHg PV Peak Velocity 58.7 cm/s PV Peak Gradient 1.4 mmHg FINDINGS LEFT VENTRICLE Normal left ventricular size. Wall thickness is normal. The left ventricular systolic function is normal with an estimated ejection fraction in the range of 55-60%. RIGHT VENTRICLE Grossly normal LEFT ATRIUM The left atrial size is normal. RIGHT ATRIUM The right atrial size is normal. ATRIAL SEPTUM Normal atrial septal thickness AORTA The aortic root and proximal ascending aorta are normal in size on limited imaging. MITRAL VALVE Structurally normal mitral valve. No mitral valve stenosis or regurgitation. AORTIC VALVE Trileaflet aortic valve. No aortic valve stenosis or regurgitation. TRICUSPID VALVE Structurally normal tricuspid valve. There is trace tricuspid valve regurgitation. No tricuspid valve stenosis. PULMONARY VALVE No pulmonary valve regurgitation or stenosis. VESSELS The inferior vena cava was not well visualized. PERICARDIUM No pericardial effusion. Sushil Hilario DO (Electronically Signed) Final Date:01 February 2018 18:18
[2018-02-02] MEDS: Sod Chloride 0.9% Inj 1,000 ML IV.CONT SCH ×3 (01:52→17:56)
[2018-02-02] MEDS: Chlorhexidine Gluconate 2% 1 Pack (2 Cloths) TOPICAL SCH (03:09)
--- NOTE | 2018-02-02 06:45 | ECG ---
Date Performed: 01/31/2018 Time Performed: 23:12:31 PTAGE: 42 years EKG: Sinus rhythm NORMAL ECG PREVIOUS TRACING : 01/31/2018 15.35 Since the previous tracing, no significant change noted DOCTOR: Augie Jhaveri Interpretating Date/Time 02/02/2018 06:43:29
--- NOTE | 2018-02-02 06:53 | ECG ---
Date Performed: 01/31/2018 Time Performed: 15:35:08 PTAGE: 42 years EKG: Sinus rhythm NORMAL ECG INTERPRETATION BASED ON A DEFAULT AGE OF 42 YEARS NO PREVIOUS TRACING DOCTOR: Augie Jhaveri Interpretating Date/Time 02/02/2018 06:49:08
[2018-02-02] MEDS: Famotidine PF Inj 20 MG/2 ML Vial IV.PUSH SCH ×2 (09:01→20:43)
[2018-02-02] MEDS: Amantadine Liq 100 MG/10 ML UDC PO SCH ×2 (09:01→20:44)
[2018-02-02] MEDS: Senna/Docusate Sodium 8.6/50 MG Tablet PO SCH ×2 (09:01→20:44)
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
[2018-02-03] MEDS: Chlorhexidine Gluconate 2% 1 Pack (2 Cloths) TOPICAL SCH (03:23)
[2018-02-03] MEDS: Sod Chloride 0.9% Inj 1,000 ML IV.CONT SCH (09:34)
[2018-02-03] MEDS: Famotidine PF Inj 20 MG/2 ML Vial IV.PUSH SCH (09:35)
[2018-02-03] MEDS: Senna/Docusate Sodium 8.6/50 MG Tablet PO SCH (09:36)
[2018-02-03] MEDS: Amantadine Liq 100 MG/10 ML UDC PO SCH (09:36)
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
== END 2018-02-03 14:16 | disposition home or self-care (01) ==
LOC: PHED 13:48 → PHEDA 21:49 → N03 02-01 00:40
PROVIDERS: ADMIT Hospitalist; ATTEND Hospitalist